=== PATIENT | female | born 1930 | race Two or more races ===

== ENCOUNTER 2018-12-01 13:17 | Inpatient (IN) | payer MEDICAID ==
[~2018-12-01] VITALS: Ht 162.6 cm; Wt 49.2 kg
[2018-12-01 13:20] VITALS: BP 142/70
--- NOTE | 2018-12-01 13:25 | NUR ---
ED Nurse Note: Patient garcia from [facility] c/o right leg DVT. patient presents with swelling ont he right leg as well as an inguinal hernia, patient has no wounds on the backside. patient is alert and oriented x1, patient is not able make sentences however speaks,
[2018-12-01] MEDS ORDERED: MULTIVITAMINS1 EAC2 ORAL (13:31)
[2018-12-01] MEDS ORDERED: megace PO (13:31)
[2018-12-01] MEDS ORDERED: COLACE100 MG ORAL (13:31)
[2018-12-01] MEDS ORDERED: ARICEPT10 MG ORAL (13:31)
[2018-12-01] MEDS ORDERED: ACETAMINOP160 MG/51 ORAL (13:31)
--- NOTE | 2018-12-01 13:45 | NUR ---
ED Nurse Note: speech therapist technician at bedside.
[2018-12-01 14:23] LABS: ANION GAP 11 mmol/L (5-15); BLOOD UREA NITROGEN 17 mg/dL (7-18); CARBON DIOXIDE 25 MMOL/L (21-32); CHLORIDE 105 MMOL/L (98-107); CREATININE 0.7 MG/DL (0.55-1.30); POTASSIUM 3.7 MMOL/L (3.5-5.1); SODIUM 141 MMOL/L (136-145)
[2018-12-01 14:28] LABS: ALANINE AMINOTRANSFERASE 19 U/L (12-78); ALBUMIN 2.9 G/DL (3.4-5.0); ALBUMIN/GLOBULIN RATIO 0.7 (1.0-2.7); ALKALINE PHOSPHATASE 89 U/L (46-116); ASPARTATE AMINO TRANSFERASE 27 U/L (15-37); BILIRUBIN,TOTAL 0.6 MG/DL (0.2-1.0)
[2018-12-01 14:29] LABS: BASOPHILS % (AUTO) 0.4 % (0.0-2.0); EOSINOPHILS % (AUTO) 0.7 % (0.0-3.0); HEMATOCRIT 37.6 % (37.0-47.0); HEMOGLOBIN 12.6 G/DL (12.0-16.0); LYMPHOCYTES % (AUTO) 27.4 % (20.0-45.0); MEAN CORPUSCULAR VOLUME 93 FL (80-99); MONOCYTES % (AUTO) 6.5 % (1.0-10.0); NEUTROPHILS % (AUTO) 65.1 % (45.0-75.0); PLATELET COUNT 157 K/UL (150-450); RED BLOOD COUNT 4.06 M/UL (4.20-5.40); RED CELL DISTRIBUTION WIDTH 12.8 % (11.6-14.8); WHITE BLOOD COUNT 7.7 K/UL (4.8-10.8)
[2018-12-01] MEDS ORDERED: Enoxaparin 60mg Inj SUBQ SCH (14:45)
--- NOTE | 2018-12-01 14:54 | Diagnostic Imaging Report ---
Indication: Right leg pain Technique: Grayscale and duplex images of the right lower extremity veins Comparison: none Findings: Grayscale and duplex images demonstrate hypoechoic thrombus within the mid and upstream femoral femoral vein. Resultant absence of blood flow and absence of compressibility. This extends into the popliteal vein as well. The calf veins are patent as is the downstream femoral vein and common femoral vein. Impression: Positive for right femoral and popliteal deep venous thrombosis Dr. Smith in the emergency room notified at the time of interpretation
[2018-12-01] MEDS ORDERED: LORazepam Inj 2mg/ml 1ml IV ONE (15:15)
[2018-12-01 15:31] VITALS: BP 131/95
--- NOTE | 2018-12-01 15:35 | NUR ---
ED Nurse Note: Cancelled ativan order due to patient not being agitated, Dr. Smith aware
[2018-12-01] MEDS ORDERED: Morphine Sulfate 2mg/ml Inj(IV/IM USE ONLY) IVP PRN (15:45)
[2018-12-01] MEDS ORDERED: Miralax 17gm pkt ORAL PRN (15:45)
[2018-12-01] MEDS ORDERED: Mylanta II UD 30ml ORAL PRN (15:45)
[2018-12-01] MEDS ORDERED: Zolpidem 5mg tab ORAL PRN (15:45)
[2018-12-01] MEDS ORDERED: LORazepam Inj 2mg/ml 1ml IV PRN (15:45)
--- NOTE | 2018-12-01 15:45 | NUR ---
ED Nurse Note: Gave report to FELTON fry
[2018-12-01] MEDS ORDERED: Dextrose 50% 25ml Syringe IV PRN (16:00)
[2018-12-01 16:30] VITALS: BP 121/89
--- NOTE | 2018-12-01 16:30 | NUR ---
NURSE NOTES: PATIENT RECEIVED FROM ER DEPT. VIA ANTHONY. BEDSIDE REPORT RECEIVED FROM MICKI AUTOMOTIVE ASSEMBLER. PATIENT CONFUSED; NON COMBATIVE. SKIN ASSESSED.AND INTACT.RFA HEPLOCK INTACT AND SECURED WITH KERLIX AND TAPE. NOTED RLE DISCOLORED WITH EDEMA PRESENT. UPON SLIGHT TOUCH PATIENT MOANS IN PAIN. BED IN LOW AND LOCKED POSITION. CALL LIGHT WITHIN REACH. WILL REPORT FINDINGS TO PCP.
--- NOTE | 2018-12-01 17:20 | NUR ---
NURSE NOTES: DR MCFARLANE HERE TO SEE PATIENT REPORTED PAIN NOTED TO RLE. XRAY ORDERED. PATIENT TURNED Q2H. TOLERATED WELL. ADDITIONAL ORDERS RECEIVED FROM DR. CHE.
--- NOTE | 2018-12-01 17:52 | Emergency Room Report ---
History of Present Illness General Chief Complaint: Abnormal Labs Source: EMS Present Illness HPI Patient has a history of dementia. Alzheimer's disease. Patient was having worsening right lower chimney pain and swelling. Ultrasound showed possible DVT as an outpatient patient was referred here for further evaluation. On arrival patient denies any chest pain shortness breath the patient is a very poor historian and unable to provide much history. All history was essentially obtained from medical records. Symptoms are noted to be moderate given swelling leg. No other modifying factors. No other associated signs and symptoms. No other complaints were noted. Allergies: Coded Allergies: No Known Allergies (Unverified , 12/01/18) Patient History Past Medical History: dementia, other - Alzheimer's disease Social History Narrative sstays at care home Reviewed Nursing Documentation: PMH: Agreed; PSxH: Agreed Nursing Documentation-PMH Past Medical History: No History, Except For Hx Cardiac Problems: Yes - HLD History Of Psychiatric Problem: Yes - alzheimer's dementia anxiety Review of Systems All Other Systems: limited - Poor mental status Physical Exam Vital Signs Date Time Temp Pulse Resp B/P (MAP) Pulse Ox O2 Delivery O2 Flow Rate FiO2 12/01/18 13:20 98.2 80 19 142/70 96 Room Air Sp02 EP Interpretation: reviewed, normal General Appearance: mild distress, thin, Chronically Ill Head: normocephalic Eyes: bilateral eye normal inspection ENT: normal pharynx, moist mucus membranes Neck: full range of motion, supple Respiratory: chest non-tender, lungs clear Cardiovascular #1: regular rate, rhythm, no edema Gastrointestinal: non tender, soft Genitourinary: no CVA tenderness Musculoskeletal: swelling - Right lower extremity, other - Bilateral lower extremity contractures, tender - right lower extremity Neurologic: alert, responsive Psychiatric: anxious, other - Unable to fuy assess Skin: normal inspection, normal color, no rash Medical Decision Making Diagnostic Impression: Primary Impression: DVT (deep venous thrombosis) Additional Impression: Altered mental status ER Course Patient presents emergency department today complaint right leg pain swelling. Difficult considerations include acute DVT, electrolyte abnormality, edema just name a few.Given the severity of the patient's presentation I felt this is a highly complex patient. This patient required extensive workup. Patient's laboratory workup was not impressive. However ultrasound shows evidence of DVT. Patient was started on Lovenox. Case was discussed detail with Dr. Gabriel Jerry for admission. Labs Test 12/01/18 13:30 White Blood Count 7.7 K/UL (4.8-10.8) Red Blood Count 4.06 M/UL (4.20-5.40) Hemoglobin 12.6 G/DL (12.0-16.0) Hematocrit 37.6 % (37.0-47.0) Mean Corpuscular Volume 93 FL (80-99) Mean Corpuscular Hemoglobin 31.0 PG (27.0-31.0) Mean Corpuscular Hemoglobin Concent 33.5 G/DL (32.0-36.0) Red Cell Distribution Width 12.8 % (11.6-14.8) Platelet Count 157 K/UL (150-450) Mean Platelet Volume 5.6 FL (6.5-10.1) Neutrophils (%) (Auto) 65.1 % (45.0-75.0) Lymphocytes (%) (Auto) 27.4 % (20.0-45.0) Monocytes (%) (Auto) 6.5 % (1.0-10.0) Eosinophils (%) (Auto) 0.7 % (0.0-3.0) Basophils (%) (Auto) 0.4 % (0.0-2.0) Prothrombin Time 10.4 SEC (9.30-11.50) Prothromb Time International Ratio 1.0 (0.9-1.1) Activated Partial Thromboplast Time 26 SEC (23-33) Sodium Level 141 MMOL/L (136-145) Potassium Level 3.7 MMOL/L (3.5-5.1) Chloride Level 105 MMOL/L (98-107) Carbon Dioxide Level 25 MMOL/L (21-32) Anion Gap 11 mmol/L (5-15) Blood Urea Nitrogen 17 mg/dL (7-18) Creatinine 0.7 MG/DL (0.55-1.30) Estimat Glomerular Filtration Rate mL/min (>60) Glucose Level 134 MG/DL (74-106) Calcium Level 9.0 MG/DL (8.5-10.1) Total Bilirubin 0.6 MG/DL (0.2-1.0) Aspartate Amino Transf (AST/SGOT) 27 U/L (15-37) Alanine Aminotransferase (ALT/SGPT) 19 U/L (12-78) Alkaline Phosphatase 89 U/L (46-116) Total Protein 6.9 G/DL (6.4-8.2) Albumin 2.9 G/DL (3.4-5.0) Globulin 4.0 g/dL Albumin/Globulin Ratio 0.7 (1.0-2.7) CT/MRI/US Diagnostic Results CT/MRI/US Diagnostic Results : Imaging Test Ordered: Positive right lower extremity DVT Last Vital Signs Date Time Temp Pulse Resp B/P (MAP) Pulse Ox O2 Delivery O2 Flow Rate FiO2 12/01/18 16:30 99.2 68 18 121/89 (100) 96 12/01/18 15:31 Room Air Status: improved Disposition: ADMITTED INPATIENT Condition: Serious Referrals: Gabriel Jerry DO (PCP) Ti Smith MD Dec 01, 2018 17:52
--- NOTE | 2018-12-01 19:30 | NUR ---
NURSE NOTES: Received report from FELTON Obando. Bed in low position, side rails up x2, locked. Partial bath and linen change done by TOOL SMITH at this time. Call light within reach. Family at bedside. Will continue to monitor.
[2018-12-01 20:00] VITALS: BP 125/81
--- NOTE | 2018-12-01 21:44 | NUR ---
NURSE NOTES: Patient confused. Will follow up on teaching interventions with caregiver/daughter when she returns.
--- NOTE | 2018-12-01 22:45 | History and Physical Report ---
DATE OF ADMISSION: 12/01/2018 TIME SEEN: 5 p.m. CONSULTANTS: 1. Mina Max M.D. 2. Freddy Antunez M.D. 3. Walt Gross M.D. CHIEF COMPLAINT: DVT right leg and leg pain. BRIEF HISTORY: This is an 88-year-old female, from looks like a custodial facility, presents with history of right leg swelling, diagnosed with DVT at the facility, transferred here for further care. This is a possible history of fracture as well. We will obtain history shortly. Currently, calm, confused in bed, not talking much. REVIEW OF SYSTEMS: Not available. PAST MEDICAL HISTORY: Just DVT, looks like dementia. PAST SURGICAL HISTORY: Unknown. ALLERGIES: Denies. SOCIAL HISTORY: Unable to obtain secondary to the patient's condition. PHYSICAL EXAMINATION: GENERAL: Confused in bed, not responding to questions. VITAL SIGNS: Temperature 98 degrees, pulse 65, respirations 19, blood pressure 131/95. CARDIOVASCULAR: No murmur. LUNGS: Distant and clear. ABDOMEN: Bowel sounds positive. Nontender. Nondistended. EXTREMITIES: No cyanosis, clubbing, or edema. NEUROLOGIC: The patient moves all extremities, slightly weak. LABORATORY DATA: Labs at this time show CBC is normal. BMP shows glucose 134, otherwise normal. Albumin 2.9. INR is 1.0, PTT 26. MEDICATIONS: Include Aricept, heparin, Tylenol, morphine, Zofran, zolpidem, lorazepam. ASSESSMENT: 1. DVT on the right leg, possible fracture. 2. Dementia. 3. Hypertension. 4. Malnutrition. PLAN: 1. PT, dietary eval. 2. CBC, BMP in the morning. 3. Resume home medications. 4. Blood pressure control. 5. Dr. Max, Dr. Antunez, Dr. Gross, Dr. Valencia, and Dr. Pelayo to consult. 6. We will continue to follow this patient. Gabriel Jerry D.O. DR: MICHELE JOB#: [id number] CC:
[2018-12-02] VITALS: BP 108/59
[2018-12-02] MEDS ORDERED: Heparin 25,000u/D5W 500ml 500 ML IV SCH ×2 (02:45→10:00)
[2018-12-02 04:00] VITALS: BP 138/68
--- NOTE | 2018-12-02 07:30 | NUR ---
HAND-OFF: Report given to FELTON Oakley. Patient in stable condition.
--- NOTE | 2018-12-02 07:57 | NUR ---
NURSE NOTES: received report from FELTON Bennett. patient in bed. no respiratory distress noted. getting Xray. IV on RFA intact. running heparin drip. bed in the lowest position. alarm on. call light within reach. will continue to monitor.
[2018-12-02 08:00] VITALS: BP 149/66
--- NOTE | 2018-12-02 08:42 | NUR ---
RADIOLOGY DEPT, RIGHT KNEE AND TIBIA/ FIBULA X-RAYS DONE.-P.DYE
[2018-12-02] MEDS: Donepezil 10mg tab ORAL SCH ×3 (09:00→09:44)
[2018-12-02 09:10] LABS: BASOPHILS % (AUTO) 0.6 % (0.0-2.0); EOSINOPHILS % (AUTO) 0.9 % (0.0-3.0); HEMATOCRIT 36.6 % (37.0-47.0); HEMOGLOBIN 12.2 G/DL (12.0-16.0); LYMPHOCYTES % (AUTO) 29.5 % (20.0-45.0); MEAN CORPUSCULAR VOLUME 92 FL (80-99); MONOCYTES % (AUTO) 7.3 % (1.0-10.0); NEUTROPHILS % (AUTO) 61.8 % (45.0-75.0); PLATELET COUNT 162 K/UL (150-450); RED BLOOD COUNT 3.96 M/UL (4.20-5.40); WHITE BLOOD COUNT 8.1 K/UL (4.8-10.8)
[2018-12-02 09:37] LABS: ALANINE AMINOTRANSFERASE 17 U/L (12-78); ALBUMIN 2.8 G/DL (3.4-5.0); ALBUMIN/GLOBULIN RATIO 0.7 (1.0-2.7); ALKALINE PHOSPHATASE 92 U/L (46-116); ANION GAP 9 mmol/L (5-15); ASPARTATE AMINO TRANSFERASE 26 U/L (15-37); BILIRUBIN,TOTAL 0.6 MG/DL (0.2-1.0); BLOOD UREA NITROGEN 14 mg/dL (7-18); CALCIUM 9.1 MG/DL (8.5-10.1); CARBON DIOXIDE 24 MMOL/L (21-32); CHLORIDE 106 MMOL/L (98-107); CHOLESTEROL 152 MG/DL (< 200); CREATININE 0.7 MG/DL (0.55-1.30); HDL CHOLESTEROL 49 MG/DL (40-60); POTASSIUM 3.5 MMOL/L (3.5-5.1); SODIUM 139 MMOL/L (136-145); TRIGLYCERIDES 62 MG/DL (30-150)
[2018-12-02] MEDS ORDERED: Heparin 5000 units/ml inj IV SCH (10:00)
--- NOTE | 2018-12-02 10:00 | NUR ---
NURSE NOTES: Patient PTT result is back new order placed and rate adjusted per protocol. timed PTT placed 6hour dose will continue to monitor. Addendum: 12/02/18 at 1617 by DELANEY URRUTIA RN NURSE NOTES: Patient PTT result is back new order placed by pharmacy and rate adjusted per protocol. timed PTT order placed for 6 hour will continue to monitor.
[2018-12-02 12:00] VITALS: BP 130/80
--- NOTE | 2018-12-02 12:32 | Consultation ---
History of Present Illness General Date patient seen: Dec 02, 2018 Chief Complaint: Abnormal Labs Present Illness HPI 88 year old female with hx of dementia, Alzheimer's disease presented to ER with CC of right lower chimney pain and swelling. Her ultrasound showed possible DVT as an outpatient patient. On arrival to ER patient denied any chest pain shortness breath. he patient is a very poor historian and unable to provide much history. All history was essentially obtained from medical records. She was started on heparin drip and admitted to med/surg. Allergies: Coded Allergies: No Known Allergies (Unverified , 12/01/18) Medication History Scheduled Docusate Sodium* (Colace*), 100 MG ORAL TWICE A DAY, (Reported) Donepezil Hcl* (Aricept*), 10 MG ORAL DAILY, (Reported) Multivitamins* (Multivitamins*), 1 TAB ORAL DAILY, (Reported) [megace], 400 MG PO BID, (Reported) Scheduled PRN Acetaminophen* (Acetaminophen*), 650 MG ORAL Q6H PRN for Mild Pain/Temp > 100.5, (Reported) Patient History Healthcare decision maker N Resuscitation status Full Code Advanced Directive on File Past Medical/Surgical History Past Medical/Surgical History: (1) Alzheimer's dementia Review of Systems Musculoskeletal: Reports: joint pain All Other Systems: negative except mentioned in HPI Physical Exam General Appearance: WD/WN, no apparent distress Lines, tubes and drains: peripheral, central line HEENT: normocephalic, atraumatic Neck: non-tender, normal alignment Respiratory/Chest: chest wall non-tender, lungs clear, normal breath sounds Cardiovascular/Chest: normal rate, no JVD Abdomen: non tender, soft Genitourinary/Rectal: normal genital exam Extremities: non-tender Last 24 Hour Vital Signs Date Time Temp Pulse Resp B/P (MAP) Pulse Ox O2 Delivery O2 Flow Rate FiO2 12/02/18 12:00 98.3 78 18 130/80 (97) 100 12/02/18 09:00 Room Air 12/02/18 08:00 98.1 66 18 149/66 (93) 99 12/02/18 04:00 97.9 72 20 138/68 (91) 96 12/02/18 00:00 98.3 73 18 108/59 (75) 96 12/01/18 20:00 98.5 76 20 125/81 (96) 97 12/01/18 19:00 Room Air 12/01/18 19:00 Room Air 12/01/18 16:30 Room Air 12/01/18 16:30 99.2 68 18 121/89 (100) 96 12/01/18 15:31 98.2 65 19 131/95 96 Room Air 12/01/18 13:20 98.2 85 19 142/70 96 Room Air 12/01/18 13:20 98.2 80 19 142/70 96 Room Air Intake and Output 12/01/18 12/02/18 19:00 07:00 Intake Total 240 ml 18.616 ml Balance 240 ml 18.616 ml Intake Oral 240 ml IV Total 18.616 ml # Voids 1 2 Laboratory Tests Test 12/01/18 13:30 12/02/18 08:57 White Blood Count 7.7 K/UL (4.8-10.8) 8.1 K/UL (4.8-10.8) Red Blood Count 4.06 M/UL (4.20-5.40) L 3.96 M/UL (4.20-5.40) L Hemoglobin 12.6 G/DL (12.0-16.0) 12.2 G/DL (12.0-16.0) Hematocrit 37.6 % (37.0-47.0) 36.6 % (37.0-47.0) L Mean Corpuscular Volume 93 FL (80-99) 92 FL (80-99) Mean Corpuscular Hemoglobin 31.0 PG (27.0-31.0) 30.7 PG (27.0-31.0) Mean Corpuscular Hemoglobin Concent 33.5 G/DL (32.0-36.0) 33.2 G/DL (32.0-36.0) Red Cell Distribution Width 12.8 % (11.6-14.8) 13.0 % (11.6-14.8) Platelet Count 157 K/UL (150-450) 162 K/UL (150-450) Mean Platelet Volume 5.6 FL (6.5-10.1) L 6.2 FL (6.5-10.1) L Neutrophils (%) (Auto) 65.1 % (45.0-75.0) 61.8 % (45.0-75.0) Lymphocytes (%) (Auto) 27.4 % (20.0-45.0) 29.5 % (20.0-45.0) Monocytes (%) (Auto) 6.5 % (1.0-10.0) 7.3 % (1.0-10.0) Eosinophils (%) (Auto) 0.7 % (0.0-3.0) 0.9 % (0.0-3.0) Basophils (%) (Auto) 0.4 % (0.0-2.0) 0.6 % (0.0-2.0) Prothrombin Time 10.4 SEC (9.30-11.50) Prothromb Time International Ratio 1.0 (0.9-1.1) Activated Partial Thromboplast Time 26 SEC (23-33) 64 SEC (23-33) H Sodium Level 141 MMOL/L (136-145) 139 MMOL/L (136-145) Potassium Level 3.7 MMOL/L (3.5-5.1) 3.5 MMOL/L (3.5-5.1) Chloride Level 105 MMOL/L (98-107) 106 MMOL/L (98-107) Carbon Dioxide Level 25 MMOL/L (21-32) 24 MMOL/L (21-32) Anion Gap 11 mmol/L (5-15) 9 mmol/L (5-15) Blood Urea Nitrogen 17 mg/dL (7-18) 14 mg/dL (7-18) Creatinine 0.7 MG/DL (0.55-1.30) 0.7 MG/DL (0.55-1.30) Estimat Glomerular Filtration Rate mL/min (>60) mL/min (>60) Glucose Level 134 MG/DL (74-106) H 120 MG/DL (74-106) H Calcium Level 9.0 MG/DL (8.5-10.1) 9.1 MG/DL (8.5-10.1) Total Bilirubin 0.6 MG/DL (0.2-1.0) 0.6 MG/DL (0.2-1.0) Aspartate Amino Transf (AST/SGOT) 27 U/L (15-37) 26 U/L (15-37) Alanine Aminotransferase (ALT/SGPT) 19 U/L (12-78) 17 U/L (12-78) Alkaline Phosphatase 89 U/L (46-116) 92 U/L (46-116) Total Protein 6.9 G/DL (6.4-8.2) 6.8 G/DL (6.4-8.2) Albumin 2.9 G/DL (3.4-5.0) L 2.8 G/DL (3.4-5.0) L Globulin 4.0 g/dL 4.0 g/dL Albumin/Globulin Ratio 0.7 (1.0-2.7) L 0.7 (1.0-2.7) L Triglycerides Level 62 MG/DL (30-150) Cholesterol Level 152 MG/DL (< 200) LDL Cholesterol 96 mg/dL (<100) HDL Cholesterol 49 MG/DL (40-60) Cholesterol/HDL Ratio 3.1 (3.3-4.4) L Height (Feet): 5 Height (Inches): 4.00 Weight (Pounds): 113 Medications Current Medications Medications (Trade) Dose Ordered Sig/Evita Route PRN Reason Start Time Stop Time Status Last Admin Dose Admin Acetaminophen (Tylenol) 650 mg Q4H PRN ORAL fever (temp>100.5F) 12/01/18 15:45 12/31/18 15:44 Al Hydroxide/Mg Hydroxide (Mylanta II) 30 ml Q6H PRN ORAL dyspepsia 12/01/18 15:45 12/31/18 15:44 Dextrose (Dextrose 50%) 25 ml Q30M PRN IV hypoglycemia 12/01/18 16:00 12/31/18 15:46 Dextrose (Dextrose 50%) 50 ml Q30M PRN IV hypoglycemia 12/01/18 16:00 12/31/18 15:59 Donepezil HCl (Aricept) 10 mg DAILY ORAL 12/02/18 09:00 01/01/19 08:59 Heparin Sodium/ Dextrose 500 ml @ 20.684 mls/ hr ADJUST PER PROTOCOL IV 12/02/18 10:00 01/01/19 02:44 12/02/18 10:29 Lorazepam (Ativan 2mg/ml 1ml) 0.5 mg Q4H PRN IV For Anxiety 12/01/18 15:45 12/08/18 15:44 Morphine Sulfate (Morphine Sulfate) 1 mg Q4H PRN IVP For Pain 12/01/18 15:45 12/08/18 15:44 Ondansetron HCl (Zofran) 4 mg Q6H PRN IVP Nausea & Vomiting 12/01/18 15:45 12/31/18 15:44 Polyethylene Glycol (Miralax) 17 gm HSPRN PRN ORAL Constipation 12/01/18 15:45 12/31/18 15:44 Zolpidem Tartrate (Ambien) 5 mg HSPRN PRN ORAL Insomnia 12/01/18 15:45 12/08/18 15:44 Assessment/Plan Problem List: (1) DVT (deep venous thrombosis) ICD Codes: I82.409 - Acute embolism and thrombosis of unspecified deep veins of unspecified lower extremity SNOMED: 382163722 (2) Alzheimer's dementia ICD Codes: G30.9 - Alzheimer's disease, unspecified; F02.80 - Dementia in other diseases classified elsewhere without behavioral disturbance SNOMED: 17084072 Assessment/Plan IV heparin start coumadin today f/u H/h dc megace, probably the cause of dvt symptomatic treatment Freddy Antunez MD Dec 02, 2018 12:32
--- NOTE | 2018-12-02 13:32 | NUR ---
CASE MANAGEMENT:REVIEW 88 YR OLD FEMALE BIBA FROM [facility] CC: RT LEG SWELLING SI: RT LEG DVT. AMS 98.2 80 19 142/70 96% ON RA INR-1.0 IS: LOVENOX SQ VENOUS DUPLEX : TELEMETRY INTERQUAL
--- NOTE | 2018-12-02 14:38 | General Progress Note ---
Assessment/Plan Problem List: (1) Altered mental status ICD Codes: R41.82 - Altered mental status, unspecified SNOMED: 174139314 (2) Alzheimer's dementia ICD Codes: G30.9 - Alzheimer's disease, unspecified; F02.80 - Dementia in other diseases classified elsewhere without behavioral disturbance SNOMED: 73910450 (3) DVT (deep venous thrombosis) ICD Codes: I82.409 - Acute embolism and thrombosis of unspecified deep veins of unspecified lower extremity SNOMED: 209656497 Status: unchanged Assessment/Plan psyc f/u heme f/u cbc bmp am Subjective Constitutional: Reports: weakness Allergies: Coded Allergies: No Known Allergies (Unverified , 12/01/18) All Systems: reviewed and negative except above Subjective sl confused in bed Objective Last 24 Hour Vital Signs Date Time Temp Pulse Resp B/P (MAP) Pulse Ox O2 Delivery O2 Flow Rate FiO2 12/02/18 12:00 98.3 78 18 130/80 (97) 100 12/02/18 09:00 Room Air 12/02/18 08:00 98.1 66 18 149/66 (93) 99 12/02/18 04:00 97.9 72 20 138/68 (91) 96 12/02/18 00:00 98.3 73 18 108/59 (75) 96 12/01/18 20:00 98.5 76 20 125/81 (96) 97 12/01/18 19:00 Room Air 12/01/18 19:00 Room Air 12/01/18 16:30 Room Air 12/01/18 16:30 99.2 68 18 121/89 (100) 96 12/01/18 15:31 98.2 65 19 131/95 96 Room Air Intake and Output 12/01/18 12/02/18 18:59 06:59 Intake Total 240 ml 18.616 ml Balance 240 ml 18.616 ml Intake Oral 240 ml IV Total 18.616 ml # Voids 1 2 Laboratory Tests 12/02/18 08:57: White Blood Count 8.1, Red Blood Count 3.96L, Hemoglobin 12.2, Hematocrit 36.6L , Mean Corpuscular Volume 92, Mean Corpuscular Hemoglobin 30.7, Mean Corpuscular Hemoglobin Concent 33.2, Red Cell Distribution Width 13.0, Platelet Count 162, Mean Platelet Volume 6.2L, Neutrophils (%) (Auto) 61.8, Lymphocytes ( %) (Auto) 29.5, Monocytes (%) (Auto) 7.3, Eosinophils (%) (Auto) 0.9, Basophils (%) (Auto) 0.6, Activated Partial Thromboplast Time 64H, Sodium Level 139, Potassium Level 3.5, Chloride Level 106, Carbon Dioxide Level 24, Anion Gap 9, Blood Urea Nitrogen 14, Creatinine 0.7, Estimat Glomerular Filtration Rate , Glucose Level 120H, Calcium Level 9.1, Total Bilirubin 0.6, Aspartate Amino Transf (AST/SGOT) 26, Alanine Aminotransferase (ALT/SGPT) 17, Alkaline Phosphatase 92, Total Protein 6.8, Albumin 2.8L, Globulin 4.0, Albumin/Globulin Ratio 0.7L, Triglycerides Level 62, Cholesterol Level 152, LDL Cholesterol 96, HDL Cholesterol 49, Cholesterol/HDL Ratio 3.1L Height (Feet): 5 Height (Inches): 4.00 Weight (Pounds): 113 General Appearance: lethargic, confused EENT: normal ENT inspection Neck: normal alignment Cardiovascular: normal peripheral pulses, normal rate, regular rhythm Respiratory/Chest: chest wall non-tender, lungs clear, normal breath sounds Abdomen: normal bowel sounds, non tender, soft Extremities: normal inspection Edema: no edema noted Arm (L), no edema noted Arm (R), no edema noted Leg (L), no edema noted Leg (R), no edema noted Pedal (L), no edema noted Pedal (R), no edema noted Generalized Neurologic: motor weakness Skin: normal pigmentation, warm/dry Gabriel Jerry DO Dec 02, 2018 14:38
[2018-12-02 16:00] VITALS: BP 132/78
--- NOTE | 2018-12-02 16:12 | NUR ---
NURSE NOTES: New PTT high critical lab result reported >150 by lab CN informed pharmacy heparin drip held per pharmacy protocol for one hour starting 1550. MD notified, electrician constructor supervisor aware will continue to monitor.
[2018-12-02] MEDS: Heparin 25,000u/D5W 500ml 500 ML IV SCH (17:00)
--- NOTE | 2018-12-02 17:07 | Consultation ---
History of Present Illness General Date patient seen: Dec 02, 2018 Time patient seen: 17:02 Chief Complaint: Abnormal Labs Present Illness HPI Patient bibas from [facility] c/o right leg DVT. patient presents with swelling on the right leg as well as an inguinal hernia, Patient is alert and oriented x1 and does not contribute to history. Allergies: Coded Allergies: No Known Allergies (Unverified , 12/01/18) Medication History Scheduled Docusate Sodium* (Colace*), 100 MG ORAL TWICE A DAY, (Reported) Donepezil Hcl* (Aricept*), 10 MG ORAL DAILY, (Reported) Multivitamins* (Multivitamins*), 1 TAB ORAL DAILY, (Reported) [megace], 400 MG PO BID, (Reported) Scheduled PRN Acetaminophen* (Acetaminophen*), 650 MG ORAL Q6H PRN for Mild Pain/Temp > 100.5, (Reported) Patient History Healthcare decision maker N Resuscitation status Full Code Advanced Directive on File Review of Systems Constitutional: Reports: no symptoms Eye: Reports: no symptoms ENT: Reports: no symptoms Respiratory: Reports: no symptoms Cardiovascular: Reports: no symptoms Gastrointestinal: Reports: no symptoms Genitourinary: Reports: no symptoms Musculoskeletal: Reports: no symptoms Skin: Reports: no symptoms Psychiatric: Reports: no symptoms Neurological: Reports: no symptoms Endocrine: Reports: no symptoms Hematologic/Lymphatic: Reports: no symptoms Physical Exam General Appearance: no apparent distress, lethargic, confused Lines, tubes and drains: peripheral HEENT: normocephalic, atraumatic, anicteric, mucous membranes moist, PERRL Neck: non-tender, normal alignment, supple Respiratory/Chest: chest wall non-tender, lungs clear, normal breath sounds, no respiratory distress Cardiovascular/Chest: normal peripheral pulses, normal rate, regular rhythm Abdomen: normal bowel sounds, non tender, soft, no organomegaly, no mass Extremities: normal range of motion, calf tenderness, slow capillary refill, trace edema Skin Exam: normal pigmentation, cyanotic, no diaphoresis 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, no motor/sensory deficits Last 24 Hour Vital Signs Date Time Temp Pulse Resp B/P (MAP) Pulse Ox O2 Delivery O2 Flow Rate FiO2 12/02/18 16:00 98.5 75 18 132/78 (96) 100 12/02/18 12:00 98.3 78 18 130/80 (97) 100 12/02/18 09:00 Room Air 12/02/18 08:00 98.1 66 18 149/66 (93) 99 12/02/18 04:00 97.9 72 20 138/68 (91) 96 12/02/18 00:00 98.3 73 18 108/59 (75) 96 12/01/18 20:00 98.5 76 20 125/81 (96) 97 12/01/18 19:00 Room Air 12/01/18 19:00 Room Air Intake and Output 12/01/18 12/02/18 18:59 06:59 Intake Total 240 ml 18.616 ml Balance 240 ml 18.616 ml Intake Oral 240 ml IV Total 18.616 ml # Voids 1 2 Laboratory Tests Test 12/02/18 08:57 12/02/18 15:00 White Blood Count 8.1 K/UL (4.8-10.8) Red Blood Count 3.96 M/UL (4.20-5.40) L Hemoglobin 12.2 G/DL (12.0-16.0) Hematocrit 36.6 % (37.0-47.0) L Mean Corpuscular Volume 92 FL (80-99) Mean Corpuscular Hemoglobin 30.7 PG (27.0-31.0) Mean Corpuscular Hemoglobin Concent 33.2 G/DL (32.0-36.0) Red Cell Distribution Width 13.0 % (11.6-14.8) Platelet Count 162 K/UL (150-450) Mean Platelet Volume 6.2 FL (6.5-10.1) L Neutrophils (%) (Auto) 61.8 % (45.0-75.0) Lymphocytes (%) (Auto) 29.5 % (20.0-45.0) Monocytes (%) (Auto) 7.3 % (1.0-10.0) Eosinophils (%) (Auto) 0.9 % (0.0-3.0) Basophils (%) (Auto) 0.6 % (0.0-2.0) Activated Partial Thromboplast Time 64 SEC (23-33) H > 150 SEC (23-33) *H Sodium Level 139 MMOL/L (136-145) Potassium Level 3.5 MMOL/L (3.5-5.1) Chloride Level 106 MMOL/L (98-107) Carbon Dioxide Level 24 MMOL/L (21-32) Anion Gap 9 mmol/L (5-15) Blood Urea Nitrogen 14 mg/dL (7-18) Creatinine 0.7 MG/DL (0.55-1.30) Estimat Glomerular Filtration Rate mL/min (>60) Glucose Level 120 MG/DL (74-106) H Calcium Level 9.1 MG/DL (8.5-10.1) Total Bilirubin 0.6 MG/DL (0.2-1.0) Aspartate Amino Transf (AST/SGOT) 26 U/L (15-37) Alanine Aminotransferase (ALT/SGPT) 17 U/L (12-78) Alkaline Phosphatase 92 U/L (46-116) Total Protein 6.8 G/DL (6.4-8.2) Albumin 2.8 G/DL (3.4-5.0) L Globulin 4.0 g/dL Albumin/Globulin Ratio 0.7 (1.0-2.7) L Triglycerides Level 62 MG/DL (30-150) Cholesterol Level 152 MG/DL (< 200) LDL Cholesterol 96 mg/dL (<100) HDL Cholesterol 49 MG/DL (40-60) Cholesterol/HDL Ratio 3.1 (3.3-4.4) L Height (Feet): 5 Height (Inches): 4.00 Weight (Pounds): 113 Medications Current Medications Medications (Trade) Dose Ordered Sig/Evita Route PRN Reason Start Time Stop Time Status Last Admin Dose Admin Acetaminophen (Tylenol) 650 mg Q4H PRN ORAL fever (temp>100.5F) 12/01/18 15:45 12/31/18 15:44 Al Hydroxide/Mg Hydroxide (Mylanta II) 30 ml Q6H PRN ORAL dyspepsia 12/01/18 15:45 12/31/18 15:44 Dextrose (Dextrose 50%) 25 ml Q30M PRN IV hypoglycemia 12/01/18 16:00 12/31/18 15:46 Dextrose (Dextrose 50%) 50 ml Q30M PRN IV hypoglycemia 12/01/18 16:00 12/31/18 15:59 Donepezil HCl (Aricept) 10 mg DAILY ORAL 12/02/18 09:00 01/01/19 08:59 Heparin Sodium/ Dextrose 500 ml @ 16.547 mls/ hr ADJUST PER PROTOCOL IV 12/02/18 17:00 01/01/19 16:59 12/02/18 17:00 Lorazepam (Ativan 2mg/ml 1ml) 0.5 mg Q4H PRN IV For Anxiety 12/01/18 15:45 12/08/18 15:44 Morphine Sulfate (Morphine Sulfate) 1 mg Q4H PRN IVP For Pain 12/01/18 15:45 12/08/18 15:44 Ondansetron HCl (Zofran) 4 mg Q6H PRN IVP Nausea & Vomiting 12/01/18 15:45 12/31/18 15:44 Polyethylene Glycol (Miralax) 17 gm HSPRN PRN ORAL Constipation 12/01/18 15:45 12/31/18 15:44 Zolpidem Tartrate (Ambien) 5 mg HSPRN PRN ORAL Insomnia 12/01/18 15:45 12/08/18 15:44 Assessment/Plan Status: stable Assessment/Plan Assessment 1. DVT on the right leg, possible fracture. 2. Dementia. 3. Hypertension. 4. Malnutrition. Plan Heparin/Coumadin No evidence of PE or RV collapse, she is HDS Appetite stimulation, physical therapy, nutrition consult Samir Fox MD Dec 02, 2018 17:07
--- NOTE | 2018-12-02 18:17 | Consultation ---
History of Present Illness General Chief Complaint: Abnormal Labs Present Illness Allergies: Coded Allergies: No Known Allergies (Unverified , 12/01/18) Medication History Scheduled Docusate Sodium* (Colace*), 100 MG ORAL TWICE A DAY, (Reported) Donepezil Hcl* (Aricept*), 10 MG ORAL DAILY, (Reported) Multivitamins* (Multivitamins*), 1 TAB ORAL DAILY, (Reported) [megace], 400 MG PO BID, (Reported) Scheduled PRN Acetaminophen* (Acetaminophen*), 650 MG ORAL Q6H PRN for Mild Pain/Temp > 100.5, (Reported) Patient History Healthcare decision maker N Resuscitation status Full Code Advanced Directive on File Physical Exam Last 24 Hour Vital Signs Date Time Temp Pulse Resp B/P (MAP) Pulse Ox O2 Delivery O2 Flow Rate FiO2 12/02/18 16:00 98.5 75 18 132/78 (96) 100 12/02/18 12:00 98.3 78 18 130/80 (97) 100 12/02/18 09:00 Room Air 12/02/18 08:00 98.1 66 18 149/66 (93) 99 12/02/18 04:00 97.9 72 20 138/68 (91) 96 12/02/18 00:00 98.3 73 18 108/59 (75) 96 12/01/18 20:00 98.5 76 20 125/81 (96) 97 12/01/18 19:00 Room Air 12/01/18 19:00 Room Air Intake and Output 12/01/18 12/02/18 18:59 06:59 Intake Total 240 ml 18.616 ml Balance 240 ml 18.616 ml Intake Oral 240 ml IV Total 18.616 ml # Voids 1 2 Laboratory Tests Test 12/02/18 08:57 12/02/18 15:00 White Blood Count 8.1 K/UL (4.8-10.8) Red Blood Count 3.96 M/UL (4.20-5.40) L Hemoglobin 12.2 G/DL (12.0-16.0) Hematocrit 36.6 % (37.0-47.0) L Mean Corpuscular Volume 92 FL (80-99) Mean Corpuscular Hemoglobin 30.7 PG (27.0-31.0) Mean Corpuscular Hemoglobin Concent 33.2 G/DL (32.0-36.0) Red Cell Distribution Width 13.0 % (11.6-14.8) Platelet Count 162 K/UL (150-450) Mean Platelet Volume 6.2 FL (6.5-10.1) L Neutrophils (%) (Auto) 61.8 % (45.0-75.0) Lymphocytes (%) (Auto) 29.5 % (20.0-45.0) Monocytes (%) (Auto) 7.3 % (1.0-10.0) Eosinophils (%) (Auto) 0.9 % (0.0-3.0) Basophils (%) (Auto) 0.6 % (0.0-2.0) Activated Partial Thromboplast Time 64 SEC (23-33) H > 150 SEC (23-33) *H Sodium Level 139 MMOL/L (136-145) Potassium Level 3.5 MMOL/L (3.5-5.1) Chloride Level 106 MMOL/L (98-107) Carbon Dioxide Level 24 MMOL/L (21-32) Anion Gap 9 mmol/L (5-15) Blood Urea Nitrogen 14 mg/dL (7-18) Creatinine 0.7 MG/DL (0.55-1.30) Estimat Glomerular Filtration Rate mL/min (>60) Glucose Level 120 MG/DL (74-106) H Calcium Level 9.1 MG/DL (8.5-10.1) Total Bilirubin 0.6 MG/DL (0.2-1.0) Aspartate Amino Transf (AST/SGOT) 26 U/L (15-37) Alanine Aminotransferase (ALT/SGPT) 17 U/L (12-78) Alkaline Phosphatase 92 U/L (46-116) Total Protein 6.8 G/DL (6.4-8.2) Albumin 2.8 G/DL (3.4-5.0) L Globulin 4.0 g/dL Albumin/Globulin Ratio 0.7 (1.0-2.7) L Triglycerides Level 62 MG/DL (30-150) Cholesterol Level 152 MG/DL (< 200) LDL Cholesterol 96 mg/dL (<100) HDL Cholesterol 49 MG/DL (40-60) Cholesterol/HDL Ratio 3.1 (3.3-4.4) L Height (Feet): 5 Height (Inches): 4.00 Weight (Pounds): 113 Medications Current Medications Medications (Trade) Dose Ordered Sig/Evita Route PRN Reason Start Time Stop Time Status Last Admin Dose Admin Acetaminophen (Tylenol) 650 mg Q4H PRN ORAL fever (temp>100.5F) 12/01/18 15:45 12/31/18 15:44 Al Hydroxide/Mg Hydroxide (Mylanta II) 30 ml Q6H PRN ORAL dyspepsia 12/01/18 15:45 12/31/18 15:44 Dextrose (Dextrose 50%) 25 ml Q30M PRN IV hypoglycemia 12/01/18 16:00 12/31/18 15:46 Dextrose (Dextrose 50%) 50 ml Q30M PRN IV hypoglycemia 12/01/18 16:00 12/31/18 15:59 Donepezil HCl (Aricept) 10 mg DAILY ORAL 12/02/18 09:00 01/01/19 08:59 Heparin Sodium/ Dextrose 500 ml @ 16.547 mls/ hr ADJUST PER PROTOCOL IV 12/02/18 17:00 01/01/19 16:59 12/02/18 17:00 Lorazepam (Ativan 2mg/ml 1ml) 0.5 mg Q4H PRN IV For Anxiety 12/01/18 15:45 12/08/18 15:44 Morphine Sulfate (Morphine Sulfate) 1 mg Q4H PRN IVP For Pain 12/01/18 15:45 12/08/18 15:44 Ondansetron HCl (Zofran) 4 mg Q6H PRN IVP Nausea & Vomiting 12/01/18 15:45 12/31/18 15:44 Polyethylene Glycol (Miralax) 17 gm HSPRN PRN ORAL Constipation 12/01/18 15:45 12/31/18 15:44 Zolpidem Tartrate (Ambien) 5 mg HSPRN PRN ORAL Insomnia 12/01/18 15:45 12/08/18 15:44 Assessment/Plan Assessment/Plan Hematology Consultatuon Date patient seen: Dec 02, 2018 Chief Complaint: Abnormal Labs RFC: Dvt of lower ext REQ MD: Rosalino Hunter Present Illness HPI 88 year old female with hx of dementia, Alzheimer's disease presented to ER with CC of right lower chimney pain and swelling. Her ultrasound showed possible DVT as an outpatient patient. On arrival to ER patient denied any chest pain shortness breath. he patient is a very poor historian and unable to provide much history. All history was essentially obtained from medical records. She was started on heparin drip and admitted to med/surg. Allergies: Coded Allergies: No Known Allergies (Unverified , 12/01/18) Medication History Scheduled Docusate Sodium* (Colace*), 100 MG ORAL TWICE A DAY, (Reported) Donepezil Hcl* (Aricept*), 10 MG ORAL DAILY, (Reported) Multivitamins* (Multivitamins*), 1 TAB ORAL DAILY, (Reported) [megace], 400 MG PO BID, (Reported) Scheduled PRN Acetaminophen* (Acetaminophen*), 650 MG ORAL Q6H PRN for Mild Pain/Temp > 100.5, (Reported) Patient History Healthcare decision maker N Resuscitation status Full Code Advanced Directive on File Past Medical/Surgical History Past Medical/Surgical History: (1) Alzheimer's dementia ROS Musculoskeletal: Reports: joint pain All Other Systems: negative except mentioned in HPI Physical Exam General Appearance: WD/WN, no apparent distress Lines, tubes and drains: peripheral, central line HEENT: normocephalic, atraumatic Neck: non-tender, normal alignment Respiratory/Chest: chest wall non-tender, lungs clear, normal breath sounds Cardiovascular/Chest: normal rate, no JVD Abdomen: non tender, soft Genitourinary/Rectal: normal genital exam Extremities: non-tender Last 24 Hour Vital Signs Date Time Temp Pulse Resp B/P (MAP) Pulse Ox O2 Delivery O2 Flow Rate FiO2 12/02/18 12:00 98.3 78 18 130/80 (97) 100 12/02/18 09:00 Room Air 12/02/18 08:00 98.1 66 18 149/66 (93) 99 12/02/18 04:00 97.9 72 20 138/68 (91) 96 12/02/18 00:00 98.3 73 18 108/59 (75) 96 12/01/18 20:00 98.5 76 20 125/81 (96) 97 12/01/18 19:00 Room Air 12/01/18 19:00 Room Air 12/01/18 16:30 Room Air 12/01/18 16:30 99.2 68 18 121/89 (100) 96 12/01/18 15:31 98.2 65 19 131/95 96 Room Air 12/01/18 13:20 98.2 85 19 142/70 96 Room Air 12/01/18 13:20 98.2 80 19 142/70 96 Room Air Intake and Output 12/01/18 12/02/18 19:00 07:00 Intake Total 240 ml 18.616 ml Balance 240 ml 18.616 ml Intake Oral 240 ml IV Total 18.616 ml # Voids 1 2 Laboratory Tests Test 12/01/18 13:30 12/02/18 08:57 White Blood Count 7.7 K/UL (4.8-10.8) 8.1 K/UL (4.8-10.8) Red Blood Count 4.06 M/UL (4.20-5.40) L 3.96 M/UL (4.20-5.40) L Hemoglobin 12.6 G/DL (12.0-16.0) 12.2 G/DL (12.0-16.0) Hematocrit 37.6 % (37.0-47.0) 36.6 % (37.0-47.0) L Mean Corpuscular Volume 93 FL (80-99) 92 FL (80-99) Mean Corpuscular Hemoglobin 31.0 PG (27.0-31.0) 30.7 PG (27.0-31.0) Mean Corpuscular Hemoglobin Concent 33.5 G/DL (32.0-36.0) 33.2 G/DL (32.0-36.0) Red Cell Distribution Width 12.8 % (11.6-14.8) 13.0 % (11.6-14.8) Platelet Count 157 K/UL (150-450) 162 K/UL (150-450) Mean Platelet Volume 5.6 FL (6.5-10.1) L 6.2 FL (6.5-10.1) L Neutrophils (%) (Auto) 65.1 % (45.0-75.0) 61.8 % (45.0-75.0) Lymphocytes (%) (Auto) 27.4 % (20.0-45.0) 29.5 % (20.0-45.0) Monocytes (%) (Auto) 6.5 % (1.0-10.0) 7.3 % (1.0-10.0) Eosinophils (%) (Auto) 0.7 % (0.0-3.0) 0.9 % (0.0-3.0) Basophils (%) (Auto) 0.4 % (0.0-2.0) 0.6 % (0.0-2.0) Prothrombin Time 10.4 SEC (9.30-11.50) Prothromb Time International Ratio 1.0 (0.9-1.1) Activated Partial Thromboplast Time 26 SEC (23-33) 64 SEC (23-33) H Sodium Level 141 MMOL/L (136-145) 139 MMOL/L (136-145) Potassium Level 3.7 MMOL/L (3.5-5.1) 3.5 MMOL/L (3.5-5.1) Chloride Level 105 MMOL/L (98-107) 106 MMOL/L (98-107) Carbon Dioxide Level 25 MMOL/L (21-32) 24 MMOL/L (21-32) Anion Gap 11 mmol/L (5-15) 9 mmol/L (5-15) Blood Urea Nitrogen 17 mg/dL (7-18) 14 mg/dL (7-18) Creatinine 0.7 MG/DL (0.55-1.30) 0.7 MG/DL (0.55-1.30) Estimat Glomerular Filtration Rate mL/min (>60) mL/min (>60) Glucose Level 134 MG/DL (74-106) H 120 MG/DL (74-106) H Calcium Level 9.0 MG/DL (8.5-10.1) 9.1 MG/DL (8.5-10.1) Total Bilirubin 0.6 MG/DL (0.2-1.0) 0.6 MG/DL (0.2-1.0) Aspartate Amino Transf (AST/SGOT) 27 U/L (15-37) 26 U/L (15-37) Alanine Aminotransferase (ALT/SGPT) 19 U/L (12-78) 17 U/L (12-78) Alkaline Phosphatase 89 U/L (46-116) 92 U/L (46-116) Total Protein 6.9 G/DL (6.4-8.2) 6.8 G/DL (6.4-8.2) Albumin 2.9 G/DL (3.4-5.0) L 2.8 G/DL (3.4-5.0) L Globulin 4.0 g/dL 4.0 g/dL Albumin/Globulin Ratio 0.7 (1.0-2.7) L 0.7 (1.0-2.7) L Triglycerides Level 62 MG/DL (30-150) Cholesterol Level 152 MG/DL (< 200) LDL Cholesterol 96 mg/dL (<100) HDL Cholesterol 49 MG/DL (40-60) Cholesterol/HDL Ratio 3.1 (3.3-4.4) L Height (Feet): 5 Height (Inches): 4.00 Weight (Pounds): 113 Medications Current Medications Medications (Trade) Dose Ordered Sig/Evita Route PRN Reason Start Time Stop Time Status Last Admin Dose Admin Acetaminophen (Tylenol) 650 mg Q4H PRN ORAL fever (temp>100.5F) 12/01/18 15:45 12/31/18 15:44 Al Hydroxide/Mg Hydroxide (Mylanta II) 30 ml Q6H PRN ORAL dyspepsia 12/01/18 15:45 12/31/18 15:44 Dextrose (Dextrose 50%) 25 ml Q30M PRN IV hypoglycemia 12/01/18 16:00 12/31/18 15:46 Dextrose (Dextrose 50%) 50 ml Q30M PRN IV hypoglycemia 12/01/18 16:00 12/31/18 15:59 Donepezil HCl (Aricept) 10 mg DAILY ORAL 12/02/18 09:00 01/01/19 08:59 Heparin Sodium/ Dextrose 500 ml @ 20.684 mls/ hr ADJUST PER PROTOCOL IV 12/02/18 10:00 01/01/19 02:44 12/02/18 10:29 Lorazepam (Ativan 2mg/ml 1ml) 0.5 mg Q4H PRN IV For Anxiety 12/01/18 15:45 12/08/18 15:44 Morphine Sulfate (Morphine Sulfate) 1 mg Q4H PRN IVP For Pain 12/01/18 15:45 12/08/18 15:44 Ondansetron HCl (Zofran) 4 mg Q6H PRN IVP Nausea & Vomiting 12/01/18 15:45 12/31/18 15:44 Polyethylene Glycol (Miralax) 17 gm HSPRN PRN ORAL Constipation 12/01/18 15:45 12/31/18 15:44 Zolpidem Tartrate (Ambien) 5 mg HSPRN PRN ORAL Insomnia 12/01/18 15:45 12/08/18 15:44 Assessment and Recs Problem List: # DVT (deep venous thrombosis) of the lower vein popliteal and femoral likely due to megace --> have started on heparin gtt --> monitor for sob or development of pe --> okay to trasnsition to coumadin inr goal 203 # Coagulopathy is due to coumadin use --> have started on coumadin inr goal 2-3 --> dose adjustment is per pharmacy # Alzheimer's dementia --> donepezil and neuro f/u The timing of this note does not necessarily reflect the time of the patient was seen. Greatly appreciate consultation! Romain Max MD Dec 02, 2018 18:17
--- NOTE | 2018-12-02 19:21 | NUR ---
HAND-OFF: Report given to Donald Cole RN.
--- NOTE | 2018-12-02 19:50 | NUR ---
NURSE NOTES: Patient in bed awake. On Heparin Drip able to tolerate well. VSS. No SOB noted. Repositioned for comfort. Bed is locked and in low position. Call light within reach. Needs attended. In stable condition.
[2018-12-02 20:00] VITALS: BP 120/84
[2018-12-03] VITALS: BP 123/78
[2018-12-03 04:00] VITALS: BP 118/80
[2018-12-03 04:16] LABS: BASOPHILS % (AUTO) 0.6 % (0.0-2.0); EOSINOPHILS % (AUTO) 1.2 % (0.0-3.0); HEMATOCRIT 34.2 % (37.0-47.0); HEMOGLOBIN 11.6 G/DL (12.0-16.0); LYMPHOCYTES % (AUTO) 27.4 % (20.0-45.0); MEAN CORPUSCULAR VOLUME 92 FL (80-99); NEUTROPHILS % (AUTO) 61.8 % (45.0-75.0); PLATELET COUNT 167 K/UL (150-450); RED BLOOD COUNT 3.73 M/UL (4.20-5.40); RED CELL DISTRIBUTION WIDTH 13.1 % (11.6-14.8); WHITE BLOOD COUNT 7.6 K/UL (4.8-10.8)
[2018-12-03 04:27] LABS: ANION GAP 8 mmol/L (5-15); BLOOD UREA NITROGEN 17 mg/dL (7-18); CALCIUM 9.1 MG/DL (8.5-10.1); CARBON DIOXIDE 25 MMOL/L (21-32); CHLORIDE 107 MMOL/L (98-107); CREATININE 0.8 MG/DL (0.55-1.30); POTASSIUM 3.7 MMOL/L (3.5-5.1); SODIUM 140 MMOL/L (136-145)
--- NOTE | 2018-12-03 04:54 | NUR ---
NURSE NOTES: Patients PTT came back. Heparin drip no change. Scheduled timed PTT for 12/04.
[2018-12-03] MEDS: Heparin 25,000u/D5W 500ml 500 ML IV SCH (05:13)
--- NOTE | 2018-12-03 07:32 | NUR ---
NURSE NOTES: WALKING ROUNDS DONE WITH OUTGOING RN. PATIENT IN BED ASLEEP. ASSESSED RLE. IV INTACT. HEPARIN GTT AT CURRENT RATE.SR UP X2. BED IN LOW AND LOCKED POSITION. CALL LIGHT WITHIN REACH.
[2018-12-03 08:00] VITALS: BP 91/78
--- NOTE | 2018-12-03 08:15 | NUR ---
NURSE NOTES: PLACED RLE IMMOBILIZER PER MD ORDER. TOLERATED FAIR. ELEVATED WITH PILLOW FOR SUPPORT.
--- NOTE | 2018-12-03 09:32 | Diagnostic Imaging Report ---
Indication: Right lower leg pain Technique: 2 views of the right tibia and fibula Comparison: Findings: There is a spiral nondisplaced fracture of the mid to distal tibial shaft. There is a spiral nondisplaced fracture of the distal fibular shaft. Bones are osteoporotic. The arteries are calcified. There are degenerative changes of the knee joint. Impression: Positive for nondisplaced tibial and fibular fractures, as described Findings phoned to Dr. Gross at the time of interpretation
--- NOTE | 2018-12-03 09:32 | Diagnostic Imaging Report ---
Indication: Right knee pain Technique: 2 views of the knee Comparison: None Findings: Exam is limited due to the availability of only 2 views, limited patient cooperation. The bones are osteoporotic. There there is degenerative narrowing of the patellofemoral joint compartment and to a lesser extent the medial and lateral joint compartment. There is extensive degenerative proliferative change noted. No definite acute fractures. No dislocations. There are extensive vascular calcifications Impression: Degenerative changes, as described No definite acute bony trauma
--- NOTE | 2018-12-03 09:33 | Diagnostic Imaging Report ---
Indication: Cough Technique: One view of the chest Comparison: none Findings: Left hemidiaphragm is elevated. The heart size is upper limits normal. The aorta is evaluated tortuous and calcified. There are degenerative changes of both shoulders Impression: No acute process
[2018-12-03 12:00] VITALS: BP 120/98
--- NOTE | 2018-12-03 12:06 | Pulmonology Progress Note ---
Assessment/Plan Problems: (1) DVT (deep venous thrombosis) (2) Alzheimer's dementia Assessment/Plan IV heparin start coumadin by pharmacy f/u H/h dc megace, probably the cause of dvt symptomatic treatment Subjective ROS Limited/Unobtainable: No Constitutional: Reports: no symptoms HEENT: Repors: no symptoms Allergies: Coded Allergies: No Known Allergies (Unverified , 12/01/18) Objective Last 24 Hour Vital Signs Date Time Temp Pulse Resp B/P (MAP) Pulse Ox O2 Delivery O2 Flow Rate FiO2 12/03/18 09:00 Room Air 12/03/18 08:00 98.1 72 17 91/78 (82) 98 12/03/18 04:00 98.2 90 18 118/80 (93) 97 12/03/18 00:00 98.4 81 18 123/78 (93) 96 12/02/18 21:00 Room Air 12/02/18 20:00 98.2 86 19 120/84 (96) 97 12/02/18 16:00 98.5 75 18 132/78 (96) 100 Intake and Output 12/02/18 12/03/18 19:00 07:00 Intake Total 1082.736 ml 240 ml Balance 1082.736 ml 240 ml Intake Oral 1000 ml 240 ml IV Total 82.736 ml # Voids 4 2 # Bowel Movements 1 1 General Appearance: WD/WN HEENT: normocephalic, atraumatic Respiratory/Chest: chest wall non-tender, lungs clear Breasts: no masses Cardiovascular: normal peripheral pulses Abdomen: normal bowel sounds, soft, non tender Extremities: no cyanosis, no clubbing Microbiology Date/Time Source Procedure Growth Status 12/01/18 16:00 Nasal Nares MRSA Culture - Final Complete 12/01/18 16:00 Rectum VRE Culture - Final NO VANCOMYCIN RESISTANT ENTEROCOCCUS ... Complete 12/01/18 16:00 Rectum - Final NO CARBAPENEM-RESISTANT ENTEROBACTERI... Complete Laboratory Tests 12/02/18 15:00: Activated Partial Thromboplast Time > 150*H 12/02/18 23:20: Activated Partial Thromboplast Time 81H 12/03/18 04:10: Activated Partial Thromboplast Time 95H, White Blood Count 7.6, Red Blood Count 3.73L, Hemoglobin 11.6L, Hematocrit 34.2L, Mean Corpuscular Volume 92, Mean Corpuscular Hemoglobin 31.0, Mean Corpuscular Hemoglobin Concent 33.8, Red Cell Distribution Width 13.1, Platelet Count 167, Mean Platelet Volume 5.5L, Neutrophils (%) (Auto) 61.8, Lymphocytes (%) (Auto) 27.4, Monocytes (%) (Auto) 9.0, Eosinophils (%) (Auto) 1.2, Basophils (%) (Auto) 0.6, Sodium Level 140, Potassium Level 3.7, Chloride Level 107, Carbon Dioxide Level 25, Anion Gap 8, Blood Urea Nitrogen 17, Creatinine 0.8, Estimat Glomerular Filtration Rate , Glucose Level 97, Calcium Level 9.1 Current Medications Medications (Trade) Dose Ordered Sig/Evita Route PRN Reason Start Time Stop Time Status Last Admin Dose Admin Acetaminophen (Tylenol) 650 mg Q4H PRN ORAL fever (temp>100.5F) 12/01/18 15:45 12/31/18 15:44 Al Hydroxide/Mg Hydroxide (Mylanta II) 30 ml Q6H PRN ORAL dyspepsia 12/01/18 15:45 12/31/18 15:44 Dextrose (Dextrose 50%) 25 ml Q30M PRN IV hypoglycemia 12/01/18 16:00 12/31/18 15:46 Dextrose (Dextrose 50%) 50 ml Q30M PRN IV hypoglycemia 12/01/18 16:00 12/31/18 15:59 Donepezil HCl (Aricept) 10 mg DAILY ORAL 12/02/18 09:00 01/01/19 08:59 Heparin Sodium/ Dextrose 500 ml @ 16.547 mls/ hr ADJUST PER PROTOCOL IV 12/02/18 17:00 01/01/19 16:59 12/03/18 05:13 Lorazepam (Ativan 2mg/ml 1ml) 0.5 mg Q4H PRN IV For Anxiety 12/01/18 15:45 12/08/18 15:44 Morphine Sulfate (Morphine Sulfate) 1 mg Q4H PRN IVP For Pain 12/01/18 15:45 12/08/18 15:44 Ondansetron HCl (Zofran) 4 mg Q6H PRN IVP Nausea & Vomiting 12/01/18 15:45 12/31/18 15:44 Polyethylene Glycol (Miralax) 17 gm HSPRN PRN ORAL Constipation 12/01/18 15:45 12/31/18 15:44 Zolpidem Tartrate (Ambien) 5 mg HSPRN PRN ORAL Insomnia 12/01/18 15:45 12/08/18 15:44 Freddy Antunez MD Dec 03, 2018 12:06
[2018-12-03] MEDS: Donepezil 10mg tab ORAL SCH (12:21)
--- NOTE | 2018-12-03 13:07 | General Progress Note ---
Assessment/Plan Problem List: (1) Altered mental status ICD Codes: R41.82 - Altered mental status, unspecified SNOMED: 980154719 (2) Alzheimer's dementia ICD Codes: G30.9 - Alzheimer's disease, unspecified; F02.80 - Dementia in other diseases classified elsewhere without behavioral disturbance SNOMED: 98493974 (3) DVT (deep venous thrombosis) ICD Codes: I82.409 - Acute embolism and thrombosis of unspecified deep veins of unspecified lower extremity SNOMED: 269089550 Status: unchanged Assessment/Plan psyc f/u heme f/u cbc bmp am dc plan Subjective Allergies: Coded Allergies: No Known Allergies (Unverified , 12/01/18) All Systems: reviewed and negative except above Subjective sl confused in bed Objective Last 24 Hour Vital Signs Date Time Temp Pulse Resp B/P (MAP) Pulse Ox O2 Delivery O2 Flow Rate FiO2 12/03/18 12:00 98.7 81 18 120/98 (105) 99 12/03/18 09:00 Room Air 12/03/18 08:00 98.1 72 17 91/78 (82) 98 12/03/18 04:00 98.2 90 18 118/80 (93) 97 12/03/18 00:00 98.4 81 18 123/78 (93) 96 12/02/18 21:00 Room Air 12/02/18 20:00 98.2 86 19 120/84 (96) 97 12/02/18 16:00 98.5 75 18 132/78 (96) 100 Intake and Output 12/02/18 12/03/18 19:00 07:00 Intake Total 1082.736 ml 240 ml Balance 1082.736 ml 240 ml Intake Oral 1000 ml 240 ml IV Total 82.736 ml # Voids 4 2 # Bowel Movements 1 1 Laboratory Tests 12/02/18 15:00: Activated Partial Thromboplast Time > 150*H 12/02/18 23:20: Activated Partial Thromboplast Time 81H 12/03/18 04:10: Activated Partial Thromboplast Time 95H, White Blood Count 7.6, Red Blood Count 3.73L, Hemoglobin 11.6L, Hematocrit 34.2L, Mean Corpuscular Volume 92, Mean Corpuscular Hemoglobin 31.0, Mean Corpuscular Hemoglobin Concent 33.8, Red Cell Distribution Width 13.1, Platelet Count 167, Mean Platelet Volume 5.5L, Neutrophils (%) (Auto) 61.8, Lymphocytes (%) (Auto) 27.4, Monocytes (%) (Auto) 9.0, Eosinophils (%) (Auto) 1.2, Basophils (%) (Auto) 0.6, Sodium Level 140, Potassium Level 3.7, Chloride Level 107, Carbon Dioxide Level 25, Anion Gap 8, Blood Urea Nitrogen 17, Creatinine 0.8, Estimat Glomerular Filtration Rate , Glucose Level 97, Calcium Level 9.1 Height (Feet): 5 Height (Inches): 4.00 Weight (Pounds): 113 General Appearance: lethargic EENT: normal ENT inspection Neck: normal alignment Cardiovascular: normal peripheral pulses, normal rate, regular rhythm Respiratory/Chest: chest wall non-tender, lungs clear, normal breath sounds Abdomen: normal bowel sounds, non tender, soft Extremities: normal inspection Edema: no edema noted Arm (L), no edema noted Arm (R), no edema noted Leg (L), no edema noted Leg (R), no edema noted Pedal (L), no edema noted Pedal (R), no edema noted Generalized Neurologic: motor weakness Skin: normal pigmentation, warm/dry Gabriel Jerry DO Dec 03, 2018 13:07
--- NOTE | 2018-12-03 13:13 | Consultation ---
DATE OF CONSULTATION: 12/01/2018 CHIEF COMPLAINT: Leg swelling. HISTORY OF PRESENT ILLNESS: The patient is an 88-year-old Latin female, who resides in a custodial. She has a lower extremity ultrasound, which was noted to be positive for DVT. Orthopedic consultation was obtained for further care and recommendation. The patient was also noted to have some type of fracture on the tibia. It is unknown exactly when this fracture occurred. PAST MEDICAL HISTORY: Reviewed. PAST SURGICAL HISTORY: Reviewed. MEDICATIONS: Reviewed. PHYSICAL EXAMINATION: EXTREMITIES: Shows some swelling on the right proximal tib-fib. No significant knee effusion. VITAL SIGNS: Afebrile. Stable vital signs. NEUROLOGIC: The patient has cognitive impairment due to underlying dementia. DIAGNOSTIC DATA: Ultrasound of lower extremity shows positive for DVT. ASSESSMENT: 1. Right lower extremity DVT. 2. Right proximal tibia fracture. DISCUSSION: At this point, I am not sure exactly what the fracture looks like and given the patient's cognitive impairment, what I recommend is to get 2-views of the right knee to see if the fracture looks like in good overall position . Therefore, conservative treatment with bedrest is quite reasonable, it does not appear that she needs obvious brace or anything like that particularly in light of the fact that she had a recent DVT in the right lower extremity. We will get the imaging studies and then continue bedrest until the fracture heals. In terms of DVT, I will leave that up to the primary team doctor to address. Walt Gross M.D. DR: Juana JOB#: [id number] CC:
--- NOTE | 2018-12-03 13:32 | NUR ---
*-* INSURANCE *-* ALL CLINICLAS, REVIEW AND INTERQUAL FAXED TO: [employer] REPORTED TO: RAY VILLA#: PND FRONT DESK REPRESENTATIVE: PND F#: [phone] PLEASE FAX CLINICALS TO [facility] #
[2018-12-03 14:25] LABS: INR 1.1 (0.9-1.1)
--- NOTE | 2018-12-03 15:09 | NUR ---
CASE MANAGEMENT:REVIEW 12/03/18 SI: AMS. RLE DVT. RT PROXIMAL TIBIA FRACTURE 98.7 81 18 120/98 99% ON RA H/H-11.6/34.2 PT+11.8 INR-1.1 IS: HEPARIN GTT COUMADIN 2.5MG PO X1 : MED/SURG STATUS 3 EAST PLAN: SEEN BY ORTHO ~ CONSERVATIVE TREATMENT
[2018-12-03 16:00] VITALS: BP 124/83
[2018-12-03] MEDS ORDERED: Warfarin Sodium 1mg ORAL SCH (17:00)
--- NOTE | 2018-12-03 18:17 | NUR ---
NURSE NOTES: PATIENT DOING WELL TODAY WITH RLE IMMOBILIZER ON. TURNED IN BED Q2H. SKIN INTACT. FAMILY AT BEDSIDE. COUMADIN 2.5 MG PO STARTED THIS EVENING. FAMILY INFORMED. CALL LIGHT WITHIN REACH. SIDERAILS UP X2. BED IN LOW AND LOCKED POSITION.
--- NOTE | 2018-12-03 18:27 | Cardiac Electrophysiology PN ---
Assessment/Plan Assessment/Plan 1. HTN, Stable off meds 2. DVT on Coumadin per RX 3. Right proximal tibia fracture.Nos surgical per Dr Mera Subjective Subjective Barely talks. Confused. Off tele. Objective Last 24 Hour Vital Signs Date Time Temp Pulse Resp B/P (MAP) Pulse Ox O2 Delivery O2 Flow Rate FiO2 12/03/18 16:00 98.2 57 18 124/83 (97) 99 12/03/18 12:00 98.7 81 18 120/98 (105) 99 12/03/18 09:00 Room Air 12/03/18 08:00 98.1 72 17 91/78 (82) 98 12/03/18 04:00 98.2 90 18 118/80 (93) 97 12/03/18 00:00 98.4 81 18 123/78 (93) 96 12/02/18 21:00 Room Air 12/02/18 20:00 98.2 86 19 120/84 (96) 97 Intake and Output 12/02/18 12/03/18 18:59 06:59 Intake Total 1082.736 ml 240 ml Balance 1082.736 ml 240 ml Intake Oral 1000 ml 240 ml IV Total 82.736 ml # Voids 4 2 # Bowel Movements 1 1 Laboratory Tests Test 12/02/18 23:20 12/03/18 04:10 Activated Partial Thromboplast Time 81 SEC (23-33) H 95 SEC (23-33) H White Blood Count 7.6 K/UL (4.8-10.8) Red Blood Count 3.73 M/UL (4.20-5.40) L Hemoglobin 11.6 G/DL (12.0-16.0) L Hematocrit 34.2 % (37.0-47.0) L Mean Corpuscular Volume 92 FL (80-99) Mean Corpuscular Hemoglobin 31.0 PG (27.0-31.0) Mean Corpuscular Hemoglobin Concent 33.8 G/DL (32.0-36.0) Red Cell Distribution Width 13.1 % (11.6-14.8) Platelet Count 167 K/UL (150-450) Mean Platelet Volume 5.5 FL (6.5-10.1) L Neutrophils (%) (Auto) 61.8 % (45.0-75.0) Lymphocytes (%) (Auto) 27.4 % (20.0-45.0) Monocytes (%) (Auto) 9.0 % (1.0-10.0) Eosinophils (%) (Auto) 1.2 % (0.0-3.0) Basophils (%) (Auto) 0.6 % (0.0-2.0) Prothrombin Time 11.8 SEC (9.30-11.50) H Prothromb Time International Ratio 1.1 (0.9-1.1) Sodium Level 140 MMOL/L (136-145) Potassium Level 3.7 MMOL/L (3.5-5.1) Chloride Level 107 MMOL/L (98-107) Carbon Dioxide Level 25 MMOL/L (21-32) Anion Gap 8 mmol/L (5-15) Blood Urea Nitrogen 17 mg/dL (7-18) Creatinine 0.8 MG/DL (0.55-1.30) Estimat Glomerular Filtration Rate mL/min (>60) Glucose Level 97 MG/DL (74-106) Calcium Level 9.1 MG/DL (8.5-10.1) Microbiology Date/Time Source Procedure Growth Status 12/01/18 16:00 Nasal Nares MRSA Culture - Final Complete 12/01/18 16:00 Rectum VRE Culture - Final NO VANCOMYCIN RESISTANT ENTEROCOCCUS ... Complete 12/01/18 16:00 Rectum - Final NO CARBAPENEM-RESISTANT ENTEROBACTERI... Complete Objective HEENT: No JVD Cardiovascular: normal peripheral pulses, normal rate, regular rhythm Respiratory/Chest: chest wall non-tender, lungs clear, normal breath sounds Abdomen: normal bowel sounds, non tender, soft Extremities: Ankle in immobilizer Edema: no edema Neurologic: motor weakness Timur Valencia MD Dec 03, 2018 18:27
--- NOTE | 2018-12-03 19:32 | NUR ---
NURSE NOTES: Received report from Chris Obando. Patient is laying in bed, aox1. No signs of distress or shortness of breath. Heparin drip at 16 u/hr. Leg immobilizer on. Bed low, side rails upx2. Will continue to monitor.
--- NOTE | 2018-12-03 19:46 | NUR ---
HAND-OFF: Report given to KIMBERLY CACERES RN.
[2018-12-03 20:00] VITALS: BP 94/74
--- NOTE | 2018-12-03 21:23 | General Progress Note ---
Assessment/Plan Assessment/Plan Assessment and Recs Problem List: # DVT (deep venous thrombosis) of the lower vein popliteal and femoral likely due to megace --> have started on heparin gtt --> monitor for sob or development of pe --> okay to trasnsition to coumadin inr goal 203 # Coagulopathy is due to coumadin use --> have started on coumadin inr goal 2-3 --> dose adjustment is per pharmacy # Alzheimer's dementia --> donepezil and neuro f/u The timing of this note does not necessarily reflect the time of the patient was seen. Greatly appreciate consultation! Subjective ROS Limited/Unobtainable: Yes Allergies: Coded Allergies: No Known Allergies (Unverified , 12/01/18) Subjective 12/03: awake, comfortable, no events reported. Objective Last 24 Hour Vital Signs Date Time Temp Pulse Resp B/P (MAP) Pulse Ox O2 Delivery O2 Flow Rate FiO2 12/03/18 16:00 98.2 57 18 124/83 (97) 99 12/03/18 12:00 98.7 81 18 120/98 (105) 99 12/03/18 09:00 Room Air 12/03/18 08:00 98.1 72 17 91/78 (82) 98 12/03/18 04:00 98.2 90 18 118/80 (93) 97 12/03/18 00:00 98.4 81 18 123/78 (93) 96 Intake and Output 12/02/18 12/03/18 18:59 06:59 Intake Total 1082.736 ml 240 ml Balance 1082.736 ml 240 ml Intake Oral 1000 ml 240 ml IV Total 82.736 ml # Voids 4 2 # Bowel Movements 1 1 Laboratory Tests 12/02/18 23:20: Activated Partial Thromboplast Time 81H 12/03/18 04:10: Activated Partial Thromboplast Time 95H, White Blood Count 7.6, Red Blood Count 3.73L, Hemoglobin 11.6L, Hematocrit 34.2L, Mean Corpuscular Volume 92, Mean Corpuscular Hemoglobin 31.0, Mean Corpuscular Hemoglobin Concent 33.8, Red Cell Distribution Width 13.1, Platelet Count 167, Mean Platelet Volume 5.5L, Neutrophils (%) (Auto) 61.8, Lymphocytes (%) (Auto) 27.4, Monocytes (%) (Auto) 9.0, Eosinophils (%) (Auto) 1.2, Basophils (%) (Auto) 0.6, Prothrombin Time 11.8H, Prothromb Time International Ratio 1.1, Sodium Level 140, Potassium Level 3.7, Chloride Level 107, Carbon Dioxide Level 25, Anion Gap 8, Blood Urea Nitrogen 17, Creatinine 0.8, Estimat Glomerular Filtration Rate , Glucose Level 97, Calcium Level 9.1 Height (Feet): 5 Height (Inches): 4.00 Weight (Pounds): 113 Objective Physical Exam General Appearance: WD/WN, no apparent distress Lines, tubes and drains: peripheral, central line HEENT: normocephalic, atraumatic Neck: non-tender, normal alignment Respiratory/Chest: chest wall non-tender, lungs clear, normal breath sounds Cardiovascular/Chest: normal rate, no JVD Abdomen: non tender, soft Genitourinary/Rectal: normal genital exam Extremities: non-tender Romain Max MD Dec 03, 2018 21:23
--- NOTE | 2018-12-03 22:00 | Progress Note ---
DATE: 12/03/2018 NOTE: POOR AUDIO. SUBJECTIVE: The patient fell yesterday and diagnosed with tibial fracture. OBJECTIVE: GENERAL: The patient is resting comfortably on the examination bed. She has underlying cognitive impairment. VITAL SIGNS: Afebrile. Stable vital signs. EXTREMITIES: Right leg examination shows some swelling. No ecchymosis. DIAGNOSTIC DATA: Two views of the right tibia showed fracture nondisplaced tibial fracture. Right lower extremity ultrasound cosistent with DVT. DISCUSSION: At this point, I recommend nonoperative treatment given medical comorbidities Can consider putting knee immobilizer on. Repeat xrays in 6 weeks to see if it is healing. Therefore, we will see the patient back in 6 weeks with imaging studies. Walt Gross M.D. DR: Juana JOB#: [id number] CC: FREDI
[2018-12-04] VITALS: BP 114/86
[2018-12-04 04:00] VITALS: BP 99/70
[2018-12-04 04:11] LABS: BASOPHILS % (AUTO) 0.5 % (0.0-2.0); EOSINOPHILS % (AUTO) 1.4 % (0.0-3.0); HEMATOCRIT 34.8 % (37.0-47.0); HEMOGLOBIN 11.9 G/DL (12.0-16.0); MEAN CORPUSCULAR VOLUME 91 FL (80-99); MONOCYTES % (AUTO) 7.9 % (1.0-10.0); NEUTROPHILS % (AUTO) 61.1 % (45.0-75.0); PLATELET COUNT 214 K/UL (150-450); RED BLOOD COUNT 3.81 M/UL (4.20-5.40); RED CELL DISTRIBUTION WIDTH 12.9 % (11.6-14.8); WHITE BLOOD COUNT 8.1 K/UL (4.8-10.8)
[2018-12-04 04:20] LABS: ANION GAP 6 mmol/L (5-15); BLOOD UREA NITROGEN 17 mg/dL (7-18); CALCIUM 9.1 MG/DL (8.5-10.1); CARBON DIOXIDE 25 MMOL/L (21-32); CHLORIDE 107 MMOL/L (98-107); CREATININE 0.8 MG/DL (0.55-1.30); POTASSIUM 3.9 MMOL/L (3.5-5.1); SODIUM 138 MMOL/L (136-145)
--- NOTE | 2018-12-04 04:39 | NUR ---
NURSE NOTES: PTT 83 this morning. No rate changes at this time.
--- NOTE | 2018-12-04 07:20 | NUR ---
NURSE NOTES: WALKING ROUNDS DONE WITH OUTGOING RN. PATIENT IN BED IN SIDE LYING POSITION. AOX1 TO NAME. IV SITE PATENT. HEPARIN GTT INFUSING @ CURRENT RATE. PTT THERAPEUTIC. BED IN LOW LOCKED POSITION. CALL LIGHT WITHIN REACH.
--- NOTE | 2018-12-04 07:46 | NUR ---
HAND-OFF: Report given to FELTON Obando. Patient stable.
[2018-12-04 08:00] VITALS: BP 145/70
[2018-12-04] MEDS: Donepezil 10mg tab ORAL SCH (08:54)
[2018-12-04] MEDS: Heparin 25,000u/D5W 500ml 500 ML IV SCH (10:43)
--- NOTE | 2018-12-04 10:48 | Cardiac Electrophysiology PN ---
Assessment/Plan Assessment/Plan 1. HTN, Stable off meds 2. DVT on Heparin and Coumadin per RX 3. Right proximal tibia fracture.Non surgical per Dr Mera DC to [facility] after INR>2 Subjective Subjective Confused. Off tele.RN at bedside. Awaiting INR to become therapeutic. On Heparin drip Objective Last 24 Hour Vital Signs Date Time Temp Pulse Resp B/P (MAP) Pulse Ox O2 Delivery O2 Flow Rate FiO2 12/04/18 09:00 Room Air 12/04/18 08:00 98.0 70 17 145/70 (95) 97 12/04/18 04:00 98.7 70 20 99/70 (80) 98 12/04/18 00:00 98.0 73 20 114/86 (95) 98 12/03/18 21:00 Room Air 12/03/18 20:00 99.6 74 18 94/74 (81) 99 12/03/18 16:00 98.2 57 18 124/83 (97) 99 12/03/18 12:00 98.7 81 18 120/98 (105) 99 Intake and Output 12/03/18 12/04/18 19:00 07:00 Intake Total 600 ml Balance 600 ml Intake Oral 600 ml # Voids 3 3 # Bowel Movements 2 Laboratory Tests Test 12/04/18 04:02 White Blood Count 8.1 K/UL (4.8-10.8) Red Blood Count 3.81 M/UL (4.20-5.40) L Hemoglobin 11.9 G/DL (12.0-16.0) L Hematocrit 34.8 % (37.0-47.0) L Mean Corpuscular Volume 91 FL (80-99) Mean Corpuscular Hemoglobin 31.3 PG (27.0-31.0) H Mean Corpuscular Hemoglobin Concent 34.2 G/DL (32.0-36.0) Red Cell Distribution Width 12.9 % (11.6-14.8) Platelet Count 214 K/UL (150-450) Mean Platelet Volume 5.8 FL (6.5-10.1) L Neutrophils (%) (Auto) 61.1 % (45.0-75.0) Lymphocytes (%) (Auto) 29.0 % (20.0-45.0) Monocytes (%) (Auto) 7.9 % (1.0-10.0) Eosinophils (%) (Auto) 1.4 % (0.0-3.0) Basophils (%) (Auto) 0.5 % (0.0-2.0) Prothrombin Time 10.6 SEC (9.30-11.50) Prothromb Time International Ratio 1.0 (0.9-1.1) Activated Partial Thromboplast Time 83 SEC (23-33) H Sodium Level 138 MMOL/L (136-145) Potassium Level 3.9 MMOL/L (3.5-5.1) Chloride Level 107 MMOL/L (98-107) Carbon Dioxide Level 25 MMOL/L (21-32) Anion Gap 6 mmol/L (5-15) Blood Urea Nitrogen 17 mg/dL (7-18) Creatinine 0.8 MG/DL (0.55-1.30) Estimat Glomerular Filtration Rate mL/min (>60) Glucose Level 98 MG/DL (74-106) Calcium Level 9.1 MG/DL (8.5-10.1) Microbiology Date/Time Source Procedure Growth Status 12/01/18 16:00 Nasal Nares MRSA Culture - Final Complete 12/01/18 16:00 Rectum VRE Culture - Final NO VANCOMYCIN RESISTANT ENTEROCOCCUS ... Complete 12/01/18 16:00 Rectum - Final NO CARBAPENEM-RESISTANT ENTEROBACTERI... Complete Objective HEENT: No JVD Cardiovascular: normal peripheral pulses, normal rate, regular rhythm Respiratory/Chest: chest wall non-tender, lungs clear, normal breath sounds Abdomen: normal bowel sounds, non tender, soft Extremities: Ankle in immobilizer Edema: no edema Neurologic: motor weakness Timur Valencia MD Dec 04, 2018 10:48
[2018-12-04 12:00] VITALS: BP 110/55
--- NOTE | 2018-12-04 12:28 | Cardiology Report ---
APPROVED REPORT EXAM: Two-dimensional and M-mode echocardiogram with Doppler and color Doppler. INDICATION Ejection Fraction M-Mode DIMENSIONS IVSd1.2 (0.7-1.1cm)Left Atrium (MM)4.0 (1.6-4.0cm) LVDd3.0 (3.5-5.6cm)Aortic Root2.6 (2.0-3.7cm) PWd0.8 (0.7-1.1cm)Aortic Cusp Exc.1.5 (1.5-2.0cm) LVDs1.8 (2.5-4.0cm) PWs1.7 cm Technically difficult and limited study due to patient's resistance. Study quality precludes accurate assessment of regional wall motion. Normal left ventricular chamber size, systolic function and wall motion. Left ventricular ejection fraction estimated to be 60 %. Mild left ventricular hypertrophy. No evidence of pericardial effusion. All other cardiac chamber sizes are within normal limits. Focal aortic valve sclerosis with adequate cusp excursion. Mildly thickened mitral valve leaflets with normal excursion. Moderate mitral annulus and aortic root calcification. Pulmonic valve not visualized. Normal tricuspid valve structure. Subcostal views not obtainable. A color flow and spectral Doppler study was performed and revealed: No aortic insufficiency. Trace mitral regurgitation. Mitral diastolic velocities suggest mild left ventricular diastolic dysfunction (Grade I). Mild tricuspid regurgitation. Tricuspid systolic velocities suggests peak right ventricular systolic pressure of 21 mmHg.
--- NOTE | 2018-12-04 13:07 | Pulmonology Progress Note ---
Assessment/Plan Problems: (1) DVT (deep venous thrombosis) (2) Alzheimer's dementia Assessment/Plan IV heparin start coumadin by pharmacy f/u H/h dc megace, probably the cause of dvt symptomatic treatment eating well Subjective ROS Limited/Unobtainable: No Constitutional: Reports: no symptoms HEENT: Repors: no symptoms Respiratory: Reports: no symptoms Allergies: Coded Allergies: No Known Allergies (Unverified , 12/01/18) Objective Last 24 Hour Vital Signs Date Time Temp Pulse Resp B/P (MAP) Pulse Ox O2 Delivery O2 Flow Rate FiO2 12/04/18 12:00 98.1 70 17 110/55 (73) 97 12/04/18 09:00 Room Air 12/04/18 08:00 98.0 70 17 145/70 (95) 97 12/04/18 04:00 98.7 70 20 99/70 (80) 98 12/04/18 00:00 98.0 73 20 114/86 (95) 98 12/03/18 21:00 Room Air 12/03/18 20:00 99.6 74 18 94/74 (81) 99 12/03/18 16:00 98.2 57 18 124/83 (97) 99 Intake and Output 12/03/18 12/04/18 19:00 07:00 Intake Total 600 ml Balance 600 ml Intake Oral 600 ml # Voids 3 3 # Bowel Movements 2 Objective General Appearance: cachectic HEENT: normocephalic, atraumatic Respiratory/Chest: chest wall non-tender, lungs clear Breasts: no masses Cardiovascular: normal peripheral pulses Abdomen: normal bowel sounds, soft, non tender Extremities: no cyanosis, no clubbing Microbiology Date/Time Source Procedure Growth Status 12/01/18 16:00 Nasal Nares MRSA Culture - Final Complete 12/01/18 16:00 Rectum VRE Culture - Final NO VANCOMYCIN RESISTANT ENTEROCOCCUS ... Complete 12/01/18 16:00 Rectum - Final NO CARBAPENEM-RESISTANT ENTEROBACTERI... Complete Laboratory Tests 12/04/18 04:02: White Blood Count 8.1, Red Blood Count 3.81L, Hemoglobin 11.9L, Hematocrit 34.8L , Mean Corpuscular Volume 91, Mean Corpuscular Hemoglobin 31.3H, Mean Corpuscular Hemoglobin Concent 34.2, Red Cell Distribution Width 12.9, Platelet Count 214, Mean Platelet Volume 5.8L, Neutrophils (%) (Auto) 61.1, Lymphocytes ( %) (Auto) 29.0, Monocytes (%) (Auto) 7.9, Eosinophils (%) (Auto) 1.4, Basophils (%) (Auto) 0.5, Prothrombin Time 10.6, Prothromb Time International Ratio 1.0, Activated Partial Thromboplast Time 83H, Sodium Level 138, Potassium Level 3.9, Chloride Level 107, Carbon Dioxide Level 25, Anion Gap 6, Blood Urea Nitrogen 17 , Creatinine 0.8, Estimat Glomerular Filtration Rate , Glucose Level 98, Calcium Level 9.1 Current Medications Medications (Trade) Dose Ordered Sig/Evita Route PRN Reason Start Time Stop Time Status Last Admin Dose Admin Acetaminophen (Tylenol) 650 mg Q4H PRN ORAL fever (temp>100.5F) 12/01/18 15:45 12/31/18 15:44 Al Hydroxide/Mg Hydroxide (Mylanta II) 30 ml Q6H PRN ORAL dyspepsia 12/01/18 15:45 12/31/18 15:44 Dextrose (Dextrose 50%) 25 ml Q30M PRN IV hypoglycemia 12/01/18 16:00 12/31/18 15:46 Dextrose (Dextrose 50%) 50 ml Q30M PRN IV hypoglycemia 12/01/18 16:00 12/31/18 15:59 Donepezil HCl (Aricept) 10 mg DAILY ORAL 12/02/18 09:00 01/01/19 08:59 12/04/18 08:54 Heparin Sodium/ Dextrose 500 ml @ 16.547 mls/ hr ADJUST PER PROTOCOL IV 12/02/18 17:00 01/01/19 16:59 12/04/18 10:43 Lorazepam (Ativan 2mg/ml 1ml) 0.5 mg Q4H PRN IV For Anxiety 12/01/18 15:45 12/08/18 15:44 12/04/18 08:54 Morphine Sulfate (Morphine Sulfate) 1 mg Q4H PRN IVP For Pain 12/01/18 15:45 12/08/18 15:44 Ondansetron HCl (Zofran) 4 mg Q6H PRN IVP Nausea & Vomiting 12/01/18 15:45 12/31/18 15:44 Polyethylene Glycol (Miralax) 17 gm HSPRN PRN ORAL Constipation 12/01/18 15:45 12/31/18 15:44 Warfarin Sodium (Coumadin per pharmacy) 1 ea DAILY PRN MISC Per rx protocol 12/03/18 12:15 01/02/19 12:14 Zolpidem Tartrate (Ambien) 5 mg HSPRN PRN ORAL Insomnia 12/01/18 15:45 12/08/18 15:44 Freddy Antunez MD Dec 04, 2018 13:07
--- NOTE | 2018-12-04 13:25 | General Progress Note ---
Assessment/Plan Problem List: (1) Altered mental status ICD Codes: R41.82 - Altered mental status, unspecified SNOMED: 317917127 (2) Alzheimer's dementia ICD Codes: G30.9 - Alzheimer's disease, unspecified; F02.80 - Dementia in other diseases classified elsewhere without behavioral disturbance SNOMED: 96131738 (3) DVT (deep venous thrombosis) ICD Codes: I82.409 - Acute embolism and thrombosis of unspecified deep veins of unspecified lower extremity SNOMED: 683874052 Status: stable, progressing Assessment/Plan psyc f/u heme f/u dc if clear Subjective Constitutional: Reports: weakness Allergies: Coded Allergies: No Known Allergies (Unverified , 12/01/18) All Systems: reviewed and negative except above Subjective sl confused in bed Objective Last 24 Hour Vital Signs Date Time Temp Pulse Resp B/P (MAP) Pulse Ox O2 Delivery O2 Flow Rate FiO2 12/04/18 12:00 98.1 70 17 110/55 (73) 97 12/04/18 09:00 Room Air 12/04/18 08:00 98.0 70 17 145/70 (95) 97 12/04/18 04:00 98.7 70 20 99/70 (80) 98 12/04/18 00:00 98.0 73 20 114/86 (95) 98 12/03/18 21:00 Room Air 12/03/18 20:00 99.6 74 18 94/74 (81) 99 12/03/18 16:00 98.2 57 18 124/83 (97) 99 Intake and Output 12/03/18 12/04/18 19:00 07:00 Intake Total 600 ml Balance 600 ml Intake Oral 600 ml # Voids 3 3 # Bowel Movements 2 Laboratory Tests 12/04/18 04:02: White Blood Count 8.1, Red Blood Count 3.81L, Hemoglobin 11.9L, Hematocrit 34.8L , Mean Corpuscular Volume 91, Mean Corpuscular Hemoglobin 31.3H, Mean Corpuscular Hemoglobin Concent 34.2, Red Cell Distribution Width 12.9, Platelet Count 214, Mean Platelet Volume 5.8L, Neutrophils (%) (Auto) 61.1, Lymphocytes ( %) (Auto) 29.0, Monocytes (%) (Auto) 7.9, Eosinophils (%) (Auto) 1.4, Basophils (%) (Auto) 0.5, Prothrombin Time 10.6, Prothromb Time International Ratio 1.0, Activated Partial Thromboplast Time 83H, Sodium Level 138, Potassium Level 3.9, Chloride Level 107, Carbon Dioxide Level 25, Anion Gap 6, Blood Urea Nitrogen 17 , Creatinine 0.8, Estimat Glomerular Filtration Rate , Glucose Level 98, Calcium Level 9.1 Height (Feet): 5 Height (Inches): 4.00 Weight (Pounds): 113 General Appearance: lethargic EENT: normal ENT inspection Neck: normal alignment Cardiovascular: normal peripheral pulses, normal rate, regular rhythm Respiratory/Chest: chest wall non-tender, lungs clear, normal breath sounds Abdomen: normal bowel sounds, non tender, soft Extremities: normal inspection Edema: no edema noted Arm (L), no edema noted Arm (R), no edema noted Leg (L), no edema noted Leg (R), no edema noted Pedal (L), no edema noted Pedal (R), no edema noted Generalized Neurologic: motor weakness Skin: normal pigmentation, warm/dry Gabriel Jerry DO Dec 04, 2018 13:25
--- NOTE | 2018-12-04 15:28 | NUR ---
*-* INSURANCE *-* ALL CLINICLAS, REVIEW AND INTERQUAL FAXED TO: [email or web address] REPORTED TO: RAY VILLA#: PND BUS STARTER: PND F#: [phone] PLEASE FAX CLINICALS TO [facility]OVE #
[2018-12-04 16:00] VITALS: BP 133/62
[2018-12-04] MEDS ORDERED: Warfarin Sodium 4mg PO SCH (17:00)
--- NOTE | 2018-12-04 17:04 | General Progress Note ---
Assessment/Plan Assessment/Plan Assessment and Recs Problem List: # DVT (deep venous thrombosis) of the lower vein popliteal and femoral likely due to megace --> have started on heparin gtt --> monitor for sob or development of pe --> okay to trasnsition to coumadin inr goal 2-3 --> dosing per pharmacy # Coagulopathy is due to coumadin use --> have started on coumadin inr goal 2-3 --> dose adjustment is per pharmacy # Anemia of chronic disease --> w/u as outpatient # Alzheimer's dementia --> donepezil and neuro f/u The timing of this note does not necessarily reflect the time of the patient was seen. Greatly appreciate consultation! Subjective Constitutional: Denies: no symptoms, chills, diaphoresis, fever, malaise, weakness, other HEENT: Denies: no symptoms, eye pain, blurred vision, tearing, double vision, ear pain, ear discharge, nose pain, nose congestion, throat pain, throat swelling, mouth pain, mouth swelling, other Cardiovascular: Denies: no symptoms, chest pain, edema, irregular heart rate, lightheadedness, palpitations, syncope, other Respiratory: Denies: no symptoms, cough, orthopnea, shortness of breath, SOB with excertion, SOB at rest, sputum, stridor, wheezing, other Gastrointestinal/Abdominal: Denies: no symptoms, abdomen distended, abdominal pain, black stools, tarry stools, blood in stool, constipated, diarrhea, difficulty swallowing, nausea, poor appetite, poor fluid intake, rectal bleeding , vomiting, other Neurologic/Psychiatric: Denies: no symptoms, anxiety, depressed, emotional problems, headache, numbness, paresthesia, pre-existing deficit, seizure, tingling, tremors, weakness, other Endocrine: Denies: no symptoms, excessive sweating, flushing, intolerance to cold, intolerance to heat, increased hunger, increased thirst, increased urine, unexplained weight gain, unexplained weight loss, other Allergies: Coded Allergies: No Known Allergies (Unverified , 12/01/18) Subjective 12/03: awake, comfortable, no events reported. 12/04: no events, on coumadin, feeling better Objective Last 24 Hour Vital Signs Date Time Temp Pulse Resp B/P (MAP) Pulse Ox O2 Delivery O2 Flow Rate FiO2 12/04/18 12:00 98.1 70 17 110/55 (73) 97 12/04/18 09:00 Room Air 12/04/18 08:00 98.0 70 17 145/70 (95) 97 12/04/18 04:00 98.7 70 20 99/70 (80) 98 12/04/18 00:00 98.0 73 20 114/86 (95) 98 12/03/18 21:00 Room Air 12/03/18 20:00 99.6 74 18 94/74 (81) 99 Intake and Output 12/03/18 12/04/18 18:59 06:59 Intake Total 600 ml Balance 600 ml Intake Oral 600 ml # Voids 3 3 # Bowel Movements 2 Laboratory Tests 12/04/18 04:02: White Blood Count 8.1, Red Blood Count 3.81L, Hemoglobin 11.9L, Hematocrit 34.8L , Mean Corpuscular Volume 91, Mean Corpuscular Hemoglobin 31.3H, Mean Corpuscular Hemoglobin Concent 34.2, Red Cell Distribution Width 12.9, Platelet Count 214, Mean Platelet Volume 5.8L, Neutrophils (%) (Auto) 61.1, Lymphocytes ( %) (Auto) 29.0, Monocytes (%) (Auto) 7.9, Eosinophils (%) (Auto) 1.4, Basophils (%) (Auto) 0.5, Prothrombin Time 10.6, Prothromb Time International Ratio 1.0, Activated Partial Thromboplast Time 83H, Sodium Level 138, Potassium Level 3.9, Chloride Level 107, Carbon Dioxide Level 25, Anion Gap 6, Blood Urea Nitrogen 17 , Creatinine 0.8, Estimat Glomerular Filtration Rate , Glucose Level 98, Calcium Level 9.1 Height (Feet): 5 Height (Inches): 4.00 Weight (Pounds): 113 Objective Physical Exam General Appearance: WD/WN, no apparent distress Lines, tubes and drains: peripheral, central line HEENT: normocephalic, atraumatic Neck: non-tender, normal alignment Respiratory/Chest: chest wall non-tender, lungs clear, normal breath sounds Cardiovascular/Chest: normal rate, no JVD Abdomen: non tender, soft Genitourinary/Rectal: normal genital exam Extremities: non-tender Romain Max MD Dec 04, 2018 17:04
--- NOTE | 2018-12-04 18:33 | NUR ---
NURSE NOTES: PATIENT REMAINS STABLE THROUGHOUT THE DAY. TURNED Q2H. RLE IMMOBILIZER IN PLACE CMS WNL.RLE DISCOLORATION IMPROVED. VSS. AFEBRILE.
--- NOTE | 2018-12-04 19:29 | NUR ---
NURSE NOTES: Received report from Chris Obando. Patient is in bed, receiving bed bath. No signs of respiratory distress. Leg immobilizer on. No pain noted. Bed low, side rails upx3. Will continue to monitor.
--- NOTE | 2018-12-04 19:30 | NUR ---
HAND-OFF: Report given to KIMBERLY CACERES RN.
[2018-12-04 20:00] VITALS: BP 124/89
[2018-12-05] VITALS: BP 101/59
[2018-12-05 04:00] VITALS: BP 127/68
--- NOTE | 2018-12-05 07:15 | NUR ---
HAND-OFF: Report given to FELTON Yañez. Patient stable.
--- NOTE | 2018-12-05 07:55 | NUR ---
NURSE NOTES: Received patient on bed, awake. IV site intact and patent. Leg immobilizer on right leg. Bed in low and locked position, call light in reach. No signs of respiratory distress or pain. Room board updated, will continue to monitor.
[2018-12-05 08:00] VITALS: BP 129/77
--- NOTE | 2018-12-05 08:03 | NUR ---
HAND-OFF: Report given to FELTON Dawson. Patient stable.
--- NOTE | 2018-12-05 08:36 | General Progress Note ---
Assessment/Plan Problem List: (1) Altered mental status ICD Codes: R41.82 - Altered mental status, unspecified SNOMED: 055197743 (2) Alzheimer's dementia ICD Codes: G30.9 - Alzheimer's disease, unspecified; F02.80 - Dementia in other diseases classified elsewhere without behavioral disturbance SNOMED: 38473795 (3) DVT (deep venous thrombosis) ICD Codes: I82.409 - Acute embolism and thrombosis of unspecified deep veins of unspecified lower extremity SNOMED: 745600704 Status: unchanged Assessment/Plan psyc f/u heme f/u cbc bmp dc if clear Subjective Constitutional: Reports: weakness Allergies: Coded Allergies: No Known Allergies (Unverified , 12/01/18) All Systems: reviewed and negative except above Subjective sl confused in bed Objective Last 24 Hour Vital Signs Date Time Temp Pulse Resp B/P (MAP) Pulse Ox O2 Delivery O2 Flow Rate FiO2 12/05/18 04:00 98.1 66 18 127/68 (87) 97 12/05/18 00:00 98.4 79 18 101/59 (73) 96 12/04/18 20:13 Room Air 12/04/18 20:00 99.1 67 18 124/89 (101) 95 12/04/18 16:00 98.1 71 17 133/62 (85) 98 12/04/18 12:00 98.1 70 17 110/55 (73) 97 12/04/18 09:00 Room Air Intake and Output 12/04/18 12/05/18 19:00 07:00 Intake Total 500 ml Balance 500 ml Intake Oral 500 ml # Voids 4 5 # Bowel Movements 1 2 Laboratory Tests 12/05/18 04:13: Prothrombin Time 10.7, Prothromb Time International Ratio 1.0, Activated Partial Thromboplast Time 69H Height (Feet): 5 Height (Inches): 4.00 Weight (Pounds): 113 General Appearance: lethargic EENT: PERRL/EOMI Neck: normal alignment Cardiovascular: normal peripheral pulses, normal rate, regular rhythm Respiratory/Chest: chest wall non-tender, lungs clear, normal breath sounds Abdomen: normal bowel sounds, non tender, soft Extremities: normal inspection Edema: no edema noted Arm (L), no edema noted Arm (R), no edema noted Leg (L), no edema noted Leg (R), no edema noted Pedal (L), no edema noted Pedal (R), no edema noted Generalized Neurologic: motor weakness Skin: normal pigmentation, warm/dry Gabriel Jerry Dec 05, 2018 08:36
[2018-12-05] MEDS: Donepezil 10mg tab ORAL SCH (08:52)
[2018-12-05 12:00] VITALS: BP 137/72
--- NOTE | 2018-12-05 15:50 | Cardiac Electrophysiology PN ---
Assessment/Plan Assessment/Plan 1. HTN, Stable off meds 2. DVT on Heparin and Coumadin per RX 3. Right proximal tibia fracture.Non surgical per Dr Mear DC to [facility] after INR>2 DW daughter Subjective Subjective Pleasantly confused. Off tele. Daughter at bedside. On Heparin drip Objective Last 24 Hour Vital Signs Date Time Temp Pulse Resp B/P (MAP) Pulse Ox O2 Delivery O2 Flow Rate FiO2 12/05/18 12:00 98.3 86 19 137/72 (93) 99 12/05/18 09:00 Room Air 12/05/18 08:00 97.7 79 20 129/77 (94) 97 12/05/18 04:00 98.1 66 18 127/68 (87) 97 12/05/18 00:00 98.4 79 18 101/59 (73) 96 12/04/18 20:13 Room Air 12/04/18 20:00 99.1 67 18 124/89 (101) 95 12/04/18 16:00 98.1 71 17 133/62 (85) 98 Intake and Output 12/04/18 12/05/18 19:00 07:00 Intake Total 500 ml Balance 500 ml Intake Oral 500 ml # Voids 4 5 # Bowel Movements 1 2 Laboratory Tests Test 12/05/18 04:13 Prothrombin Time 10.7 SEC (9.30-11.50) Prothromb Time International Ratio 1.0 (0.9-1.1) Activated Partial Thromboplast Time 69 SEC (23-33) H Objective HEENT: No JVD Cardiovascular: normal peripheral pulses, normal rate, regular rhythm Respiratory/Chest: chest wall non-tender, lungs clear, normal breath sounds Abdomen: normal bowel sounds, non tender, soft Extremities: Ankle in immobilizer Edema: no edema Neurologic: motor weakness Timur Valencia MD Dec 05, 2018 15:50
--- NOTE | 2018-12-05 16:04 | Pulmonology Progress Note ---
Assessment/Plan Problems: (1) DVT (deep venous thrombosis) (2) Alzheimer's dementia Assessment/Plan IV heparin start coumadin by pharmacy f/u H/h dc megace, probably the cause of dvt symptomatic treatment eating well Subjective ROS Limited/Unobtainable: No Constitutional: Reports: no symptoms HEENT: Repors: no symptoms Allergies: Coded Allergies: No Known Allergies (Unverified , 12/01/18) Objective Last 24 Hour Vital Signs Date Time Temp Pulse Resp B/P (MAP) Pulse Ox O2 Delivery O2 Flow Rate FiO2 12/05/18 12:00 98.3 86 19 137/72 (93) 99 12/05/18 09:00 Room Air 12/05/18 08:00 97.7 79 20 129/77 (94) 97 12/05/18 04:00 98.1 66 18 127/68 (87) 97 12/05/18 00:00 98.4 79 18 101/59 (73) 96 12/04/18 20:13 Room Air 12/04/18 20:00 99.1 67 18 124/89 (101) 95 Intake and Output 12/04/18 12/05/18 19:00 07:00 Intake Total 500 ml Balance 500 ml Intake Oral 500 ml # Voids 4 5 # Bowel Movements 1 2 Objective General Appearance: cachectic HEENT: normocephalic, atraumatic Respiratory/Chest: chest wall non-tender, lungs clear Breasts: no masses Cardiovascular: normal peripheral pulses Abdomen: normal bowel sounds, soft, non tender Extremities: no cyanosis, no clubbing Laboratory Tests 12/05/18 04:13: Prothrombin Time 10.7, Prothromb Time International Ratio 1.0, Activated Partial Thromboplast Time 69H Current Medications Medications (Trade) Dose Ordered Sig/Evita Route PRN Reason Start Time Stop Time Status Last Admin Dose Admin Acetaminophen (Tylenol) 650 mg Q4H PRN ORAL fever (temp>100.5F) 12/01/18 15:45 12/31/18 15:44 Al Hydroxide/Mg Hydroxide (Mylanta II) 30 ml Q6H PRN ORAL dyspepsia 12/01/18 15:45 12/31/18 15:44 Dextrose (Dextrose 50%) 25 ml Q30M PRN IV hypoglycemia 12/01/18 16:00 12/31/18 15:46 Dextrose (Dextrose 50%) 50 ml Q30M PRN IV hypoglycemia 12/01/18 16:00 12/31/18 15:59 Donepezil HCl (Aricept) 10 mg DAILY ORAL 12/02/18 09:00 01/01/19 08:59 12/05/18 08:52 Heparin Sodium/ Dextrose 500 ml @ 16.547 mls/ hr ADJUST PER PROTOCOL IV 12/02/18 17:00 01/01/19 16:59 12/04/18 10:43 Lorazepam (Ativan 2mg/ml 1ml) 0.5 mg Q4H PRN IV For Anxiety 12/01/18 15:45 12/08/18 15:44 12/04/18 08:54 Morphine Sulfate (Morphine Sulfate) 1 mg Q4H PRN IVP For Pain 12/01/18 15:45 12/08/18 15:44 Ondansetron HCl (Zofran) 4 mg Q6H PRN IVP Nausea & Vomiting 12/01/18 15:45 12/31/18 15:44 Polyethylene Glycol (Miralax) 17 gm HSPRN PRN ORAL Constipation 12/01/18 15:45 12/31/18 15:44 Warfarin Sodium (Coumadin per pharmacy) 1 ea DAILY PRN MISC Per rx protocol 12/03/18 12:15 01/02/19 12:14 Warfarin Sodium (Coumadin) 5 mg COUMADIN ORAL 12/05/18 17:00 12/10/18 16:59 Zolpidem Tartrate (Ambien) 5 mg HSPRN PRN ORAL Insomnia 12/01/18 15:45 12/08/18 15:44 Freddy Antunez MD Dec 05, 2018 16:04
[2018-12-05 16:05] VITALS: BP 125/76
[2018-12-05] MEDS: Warfarin Sodium 5mg ORAL SCH (17:16)
[2018-12-05] MEDS: Heparin 25,000u/D5W 500ml 500 ML IV SCH (17:17)
--- NOTE | 2018-12-05 19:24 | NUR ---
CASE MANAGEMENT: REVIEW SI: DVT T 98.3 HR 86 RR 18 BP 101/59 SAT 97% ROOM AIR APTT 69 IS: COUMADIN 5MG PO HEPARIN GTT MED/SURG STATUS DCP: PATIENT IS FROM [facility]
--- NOTE | 2018-12-05 19:42 | NUR ---
HAND-OFF: Report given to FELTON Perdue.
--- NOTE | 2018-12-05 19:45 | NUR ---
NURSE NOTES: Pt lying in bed w/bed in lowest position and call light within reach. Pt alert to self only, VSS, and in no apparent distress at this time. IV site intact/asymptomatic w/heparin drip @ 16 units/kg/hr; and skin intact w/sacral redness noted. Will continue to monitor.
[2018-12-05 20:00] VITALS: BP 120/75
[2018-12-06] VITALS: BP 142/82
[2018-12-06 04:00] VITALS: BP 164/79
[2018-12-06 04:16] LABS: BASOPHILS % (AUTO) 0.5 % (0.0-2.0); EOSINOPHILS % (AUTO) 1.2 % (0.0-3.0); HEMATOCRIT 34.8 % (37.0-47.0); HEMOGLOBIN 11.8 G/DL (12.0-16.0); LYMPHOCYTES % (AUTO) 26.1 % (20.0-45.0); MEAN CORPUSCULAR VOLUME 92 FL (80-99); MONOCYTES % (AUTO) 7.3 % (1.0-10.0); NEUTROPHILS % (AUTO) 64.9 % (45.0-75.0); PLATELET COUNT 259 K/UL (150-450); RED BLOOD COUNT 3.77 M/UL (4.20-5.40); RED CELL DISTRIBUTION WIDTH 13.2 % (11.6-14.8); WHITE BLOOD COUNT 6.9 K/UL (4.8-10.8)
[2018-12-06 04:26] LABS: ANION GAP 9 mmol/L (5-15); BLOOD UREA NITROGEN 16 mg/dL (7-18); CALCIUM 9.3 MG/DL (8.5-10.1); CARBON DIOXIDE 26 MMOL/L (21-32); CHLORIDE 104 MMOL/L (98-107); CREATININE 0.7 MG/DL (0.55-1.30); POTASSIUM 3.7 MMOL/L (3.5-5.1); SODIUM 138 MMOL/L (136-145)
[2018-12-06 04:36] LABS: INR 1.1 (0.9-1.1)
--- NOTE | 2018-12-06 07:05 | NUR ---
HAND-OFF: Report given to FELTON Dawson.
--- NOTE | 2018-12-06 07:35 | NUR ---
NURSE NOTES: Received patient on bed, asleep. IV site intact and patent. Bed in low and locked position, call light in reach. No signs of respiratory distress or pain. Room board updated, will continue to monitor.
[2018-12-06 08:00] VITALS: BP 140/83
--- NOTE | 2018-12-06 08:39 | General Progress Note ---
Assessment/Plan Problem List: (1) Altered mental status ICD Codes: R41.82 - Altered mental status, unspecified SNOMED: 502564293 (2) Alzheimer's dementia ICD Codes: G30.9 - Alzheimer's disease, unspecified; F02.80 - Dementia in other diseases classified elsewhere without behavioral disturbance SNOMED: [id number] (3) DVT (deep venous thrombosis) ICD Codes: I82.409 - Acute embolism and thrombosis of unspecified deep veins of unspecified lower extremity SNOMED: 038524253 Status: stable, progressing Assessment/Plan psyc f/u heme f/u cbc bmp dc if clear Subjective Constitutional: Reports: weakness Allergies: Coded Allergies: No Known Allergies (Unverified , 12/01/18) All Systems: reviewed and negative except above Subjective sl confused in bed Objective Last 24 Hour Vital Signs Date Time Temp Pulse Resp B/P (MAP) Pulse Ox O2 Delivery O2 Flow Rate FiO2 12/06/18 08:00 98.4 73 17 140/83 (102) 97 12/06/18 04:00 97.3 77 18 164/79 (107) 96 12/06/18 00:00 99.0 81 18 142/82 (102) 97 12/05/18 21:00 Room Air 12/05/18 20:00 99.2 80 18 120/75 (90) 94 12/05/18 16:05 98.2 86 18 125/76 (92) 99 12/05/18 12:00 98.3 86 19 137/72 (93) 99 12/05/18 09:00 Room Air Intake and Output 12/05/18 12/06/18 19:00 07:00 Intake Total 736.547 ml 302.017 ml Balance 736.547 ml 302.017 ml Intake Oral 720 ml 120 ml IV Total 16.547 ml 182.017 ml # Voids 3 3 # Bowel Movements 2 Laboratory Tests 12/06/18 03:53: White Blood Count 6.9, Red Blood Count 3.77L, Hemoglobin 11.8L, Hematocrit 34.8L , Mean Corpuscular Volume 92, Mean Corpuscular Hemoglobin 31.3H, Mean Corpuscular Hemoglobin Concent 33.9, Red Cell Distribution Width 13.2, Platelet Count 259, Mean Platelet Volume 5.1L, Neutrophils (%) (Auto) 64.9, Lymphocytes ( %) (Auto) 26.1, Monocytes (%) (Auto) 7.3, Eosinophils (%) (Auto) 1.2, Basophils (%) (Auto) 0.5, Prothrombin Time 11.7H, Prothromb Time International Ratio 1.1, Activated Partial Thromboplast Time 65H, Sodium Level 138, Potassium Level 3.7, Chloride Level 104, Carbon Dioxide Level 26, Anion Gap 9, Blood Urea Nitrogen 16 , Creatinine 0.7, Estimat Glomerular Filtration Rate , Glucose Level 93, Calcium Level 9.3 Height (Feet): 5 Height (Inches): 4.00 Weight (Pounds): 113 General Appearance: lethargic EENT: normal ENT inspection Neck: normal alignment Cardiovascular: normal peripheral pulses, normal rate, regular rhythm Respiratory/Chest: chest wall non-tender, lungs clear, normal breath sounds Abdomen: normal bowel sounds, non tender, soft Extremities: normal inspection Edema: no edema noted Arm (L), no edema noted Arm (R), no edema noted Leg (L), no edema noted Leg (R), no edema noted Pedal (L), no edema noted Pedal (R), no edema noted Generalized Neurologic: motor weakness Skin: normal pigmentation, warm/dry Gabriel Jerry DO Dec 06, 2018 08:39
[2018-12-06] MEDS: Donepezil 10mg tab ORAL SCH (09:05)
[2018-12-06 12:00] VITALS: BP 114/72
[2018-12-06 16:00] VITALS: BP 120/65
--- NOTE | 2018-12-06 16:57 | Pulmonology Progress Note ---
Assessment/Plan Problems: (1) DVT (deep venous thrombosis) (2) Alzheimer's dementia Assessment/Plan IV heparin on coumadin by pharmacy f/u H/h dc jason, probably the cause of dvt symptomatic treatment eating well Subjective Interval Events: doing better Allergies: Coded Allergies: No Known Allergies (Unverified , 12/01/18) Objective Last 24 Hour Vital Signs Date Time Temp Pulse Resp B/P (MAP) Pulse Ox O2 Delivery O2 Flow Rate FiO2 12/06/18 12:00 98.1 84 18 114/72 (86) 96 12/06/18 09:00 Room Air 12/06/18 08:00 98.4 73 17 140/83 (102) 97 12/06/18 04:00 97.3 77 18 164/79 (107) 96 12/06/18 00:00 99.0 81 18 142/82 (102) 97 12/05/18 21:00 Room Air 12/05/18 20:00 99.2 80 18 120/75 (90) 94 Intake and Output 12/05/18 12/06/18 19:00 07:00 Intake Total 736.547 ml 318.564 ml Balance 736.547 ml 318.564 ml Intake Oral 720 ml 120 ml IV Total 16.547 ml 198.564 ml # Voids 3 3 # Bowel Movements 2 Objective General Appearance: cachectic HEENT: normocephalic, atraumatic Respiratory/Chest: chest wall non-tender, lungs clear Breasts: no masses Cardiovascular: normal peripheral pulses Abdomen: normal bowel sounds, soft, non tender Extremities: no cyanosis, no clubbing Laboratory Tests 12/06/18 03:53: White Blood Count 6.9, Red Blood Count 3.77L, Hemoglobin 11.8L, Hematocrit 34.8L , Mean Corpuscular Volume 92, Mean Corpuscular Hemoglobin 31.3H, Mean Corpuscular Hemoglobin Concent 33.9, Red Cell Distribution Width 13.2, Platelet Count 259, Mean Platelet Volume 5.1L, Neutrophils (%) (Auto) 64.9, Lymphocytes ( %) (Auto) 26.1, Monocytes (%) (Auto) 7.3, Eosinophils (%) (Auto) 1.2, Basophils (%) (Auto) 0.5, Prothrombin Time 11.7H, Prothromb Time International Ratio 1.1, Activated Partial Thromboplast Time 65H, Sodium Level 138, Potassium Level 3.7, Chloride Level 104, Carbon Dioxide Level 26, Anion Gap 9, Blood Urea Nitrogen 16 , Creatinine 0.7, Estimat Glomerular Filtration Rate , Glucose Level 93, Calcium Level 9.3 Current Medications Medications (Trade) Dose Ordered Sig/Evita Route PRN Reason Start Time Stop Time Status Last Admin Dose Admin Acetaminophen (Tylenol) 650 mg Q4H PRN ORAL fever (temp>100.5F) 12/01/18 15:45 12/31/18 15:44 Al Hydroxide/Mg Hydroxide (Mylanta II) 30 ml Q6H PRN ORAL dyspepsia 12/01/18 15:45 12/31/18 15:44 Dextrose (Dextrose 50%) 25 ml Q30M PRN IV hypoglycemia 12/01/18 16:00 12/31/18 15:46 Dextrose (Dextrose 50%) 50 ml Q30M PRN IV hypoglycemia 12/01/18 16:00 12/31/18 15:59 Donepezil HCl (Aricept) 10 mg DAILY ORAL 12/02/18 09:00 01/01/19 08:59 12/06/18 09:05 Heparin Sodium/ Dextrose 500 ml @ 16.547 mls/ hr ADJUST PER PROTOCOL IV 12/02/18 17:00 01/01/19 16:59 12/05/18 17:17 Lorazepam (Ativan 2mg/ml 1ml) 0.5 mg Q4H PRN IV For Anxiety 12/01/18 15:45 12/08/18 15:44 12/04/18 08:54 Morphine Sulfate (Morphine Sulfate) 1 mg Q4H PRN IVP For Pain 12/01/18 15:45 12/08/18 15:44 Ondansetron HCl (Zofran) 4 mg Q6H PRN IVP Nausea & Vomiting 12/01/18 15:45 12/31/18 15:44 Polyethylene Glycol (Miralax) 17 gm HSPRN PRN ORAL Constipation 12/01/18 15:45 12/31/18 15:44 Warfarin Sodium (Coumadin per pharmacy) 1 ea DAILY PRN MISC Per rx protocol 12/03/18 12:15 01/02/19 12:14 Warfarin Sodium (Coumadin) 5 mg COUMADIN ORAL 12/05/18 17:00 12/10/18 16:59 12/05/18 17:16 Zolpidem Tartrate (Ambien) 5 mg HSPRN PRN ORAL Insomnia 12/01/18 15:45 12/08/18 15:44 Freddy Antunez MD Dec 06, 2018 16:57
[2018-12-06] MEDS: Warfarin Sodium 5mg ORAL SCH (17:42)
[2018-12-06] MEDS: Heparin 25,000u/D5W 500ml 500 ML IV SCH (17:43)
--- NOTE | 2018-12-06 19:29 | NUR ---
CASE MANAGEMENT: REVIEW SI: DVT T 99.0 HR 81 RR 18 BP 142/82 SAT 97% ROOM AIR PT 11.7 APTT 65 H/H 11.8/34.[address] 5.1 IS: COUMADIN 5MG PO HEPARIN GTT MED/SURG STATUS DCP: PATIENT IS FROM [facility]
--- NOTE | 2018-12-06 19:35 | NUR ---
CASE MANAGEMENT: REVIEW SI: DVT T 99.0 HR 81 RR 18 BP 142/82 SAT 97% ROOM AIR PT 11.7 APTT 65 H/H 11.8/34.[address] 268 IS: COUMADIN 5MG PO HEPARIN GTT MED/SURG STATUS DCP: PATIENT IS FROM [facility]
--- NOTE | 2018-12-06 19:46 | NUR ---
HAND-OFF: Report given to FELTON Wills.
--- NOTE | 2018-12-06 19:50 | NUR ---
PT RECEIVED WITH STABLE CONDITION. HEPARIN DRIP PER ORDER PTT IN AM.
[2018-12-06 20:00] VITALS: BP 117/64
--- NOTE | 2018-12-06 23:02 | General Progress Note ---
Assessment/Plan Assessment/Plan Assessment and Recs Problem List: # DVT (deep venous thrombosis) of the lower vein popliteal and femoral likely due to megace --> have started on heparin gtt --> monitor for sob or development of pe --> okay to trasnsition to coumadin inr goal 2-3 --> dosing per pharmacy # Coagulopathy is due to coumadin use --> have started on coumadin inr goal 2-3 --> dose adjustment is per pharmacy # Anemia of chronic disease --> w/u as outpatient # Alzheimer's dementia --> donepezil and neuro f/u The timing of this note does not necessarily reflect the time of the patient was seen. Greatly appreciate consultation! Subjective Allergies: Coded Allergies: No Known Allergies (Unverified , 12/01/18) Subjective 12/03: awake, comfortable, no events reported. 12/04: no events, on coumadin, feeling better 12/06: seen by bedside, awake, comfortable, no events Objective Last 24 Hour Vital Signs Date Time Temp Pulse Resp B/P (MAP) Pulse Ox O2 Delivery O2 Flow Rate FiO2 12/06/18 20:00 98.6 84 18 117/64 (81) 96 12/06/18 16:00 98.6 79 18 120/65 (83) 96 12/06/18 12:00 98.1 84 18 114/72 (86) 96 12/06/18 09:00 Room Air 12/06/18 08:00 98.4 73 17 140/83 (102) 97 12/06/18 04:00 97.3 77 18 164/79 (107) 96 12/06/18 00:00 99.0 81 18 142/82 (102) 97 Intake and Output 12/05/18 12/06/18 19:00 07:00 Intake Total 736.547 ml 318.564 ml Balance 736.547 ml 318.564 ml Intake Oral 720 ml 120 ml IV Total 16.547 ml 198.564 ml # Voids 3 3 # Bowel Movements 2 Laboratory Tests 12/06/18 03:53: White Blood Count 6.9, Red Blood Count 3.77L, Hemoglobin 11.8L, Hematocrit 34.8L , Mean Corpuscular Volume 92, Mean Corpuscular Hemoglobin 31.3H, Mean Corpuscular Hemoglobin Concent 33.9, Red Cell Distribution Width 13.2, Platelet Count 259, Mean Platelet Volume 5.1L, Neutrophils (%) (Auto) 64.9, Lymphocytes ( %) (Auto) 26.1, Monocytes (%) (Auto) 7.3, Eosinophils (%) (Auto) 1.2, Basophils (%) (Auto) 0.5, Prothrombin Time 11.7H, Prothromb Time International Ratio 1.1, Activated Partial Thromboplast Time 65H, Sodium Level 138, Potassium Level 3.7, Chloride Level 104, Carbon Dioxide Level 26, Anion Gap 9, Blood Urea Nitrogen 16 , Creatinine 0.7, Estimat Glomerular Filtration Rate , Glucose Level 93, Calcium Level 9.3 Height (Feet): 5 Height (Inches): 4.00 Weight (Pounds): 113 Objective Physical Exam General Appearance: WD/WN, no apparent distress Lines, tubes and drains: peripheral, central line HEENT: normocephalic, atraumatic Neck: non-tender, normal alignment Respiratory/Chest: chest wall non-tender, lungs clear, normal breath sounds Cardiovascular/Chest: normal rate, no JVD Abdomen: non tender, soft Genitourinary/Rectal: normal genital exam Extremities: non-tender Romain Max MD Dec 06, 2018 23:02
[2018-12-07] VITALS (7 sets, daily range): BP systolic 103–120; BP diastolic 63–80
--- NOTE | 2018-12-07 07:10 | NUR ---
NURSE NOTES: Received report from Yosi Wills RN. Rounding done with outgoing nurse. Patient a/o x1, nonverbal. No respiratory distress noted. IV is patent. Call light within reach. Will continue to monitor.
--- NOTE | 2018-12-07 07:20 | NUR ---
HAND-OFF: Report given to MYLENE WITH STABLE CONDITION PTT NO RESULT YET ENDORCED..
[2018-12-07 07:31] LABS: BASOPHILS % (AUTO) 0.5 % (0.0-2.0); EOSINOPHILS % (AUTO) 2.3 % (0.0-3.0); HEMATOCRIT 34.6 % (37.0-47.0); HEMOGLOBIN 11.5 G/DL (12.0-16.0); LYMPHOCYTES % (AUTO) 30.4 % (20.0-45.0); MEAN CORPUSCULAR VOLUME 93 FL (80-99); MONOCYTES % (AUTO) 7.8 % (1.0-10.0); PLATELET COUNT 268 K/UL (150-450); RED BLOOD COUNT 3.71 M/UL (4.20-5.40); WHITE BLOOD COUNT 5.5 K/UL (4.8-10.8)
[2018-12-07 07:34] LABS: ANION GAP 11 mmol/L (5-15); BLOOD UREA NITROGEN 19 mg/dL (7-18); CALCIUM 9.3 MG/DL (8.5-10.1); CARBON DIOXIDE 24 MMOL/L (21-32); CHLORIDE 104 MMOL/L (98-107); CREATININE 0.7 MG/DL (0.55-1.30); POTASSIUM 3.6 MMOL/L (3.5-5.1); SODIUM 139 MMOL/L (136-145)
[2018-12-07 07:35] LABS: INR 1.2 (0.9-1.1)
[2018-12-07] MEDS ORDERED: Heparin 5000 units/ml inj IV SCH (08:15)
[2018-12-07] MEDS: Donepezil 10mg tab ORAL SCH (08:22)
[2018-12-07] MEDS: Heparin 25,000u/D5W 500ml 500 ML IV SCH (08:24)
--- NOTE | 2018-12-07 12:36 | Pulmonology Progress Note ---
Assessment/Plan Problems: (1) DVT (deep venous thrombosis) (2) Alzheimer's dementia Assessment/Plan INR is 1. 2 IV heparin on coumadin by pharmacy f/u H/h jf gomez, probably the cause of dvt symptomatic treatment eating well Subjective ROS Limited/Unobtainable: No Constitutional: Reports: no symptoms HEENT: Repors: no symptoms Allergies: Coded Allergies: No Known Allergies (Unverified , 12/01/18) Objective Last 24 Hour Vital Signs Date Time Temp Pulse Resp B/P (MAP) Pulse Ox O2 Delivery O2 Flow Rate FiO2 12/07/18 12:00 98.1 69 17 110/71 (84) 96 12/07/18 09:00 98.9 81 18 120/66 (84) 96 12/07/18 09:00 Room Air 12/07/18 08:33 97.9 74 18 108/67 (81) 97 12/07/18 04:00 99.5 78 18 108/80 (89) 83 12/07/18 00:00 99.1 83 18 105/63 (77) 83 12/06/18 21:00 Room Air 12/06/18 20:00 98.6 84 18 117/64 (81) 96 12/06/18 16:00 98.6 79 18 120/65 (83) 96 Intake and Output 12/06/18 12/07/18 19:00 07:00 Intake Total 1182.017 ml 282.017 ml Balance 1182.017 ml 282.017 ml Intake Oral 1000 ml 100 ml IV Total 182.017 ml 182.017 ml # Voids 5 3 # Bowel Movements 2 2 Objective General Appearance: cachectic HEENT: normocephalic, atraumatic Respiratory/Chest: chest wall non-tender, lungs clear Breasts: no masses Cardiovascular: normal peripheral pulses Abdomen: normal bowel sounds, soft, non tender Extremities: no cyanosis, no clubbing Laboratory Tests 12/07/18 05:15: White Blood Count 5.5, Red Blood Count 3.71L, Hemoglobin 11.5L, Hematocrit 34.6L , Mean Corpuscular Volume 93, Mean Corpuscular Hemoglobin 30.9, Mean Corpuscular Hemoglobin Concent 33.1, Red Cell Distribution Width 13.0, Platelet Count 268, Mean Platelet Volume 4.7L, Neutrophils (%) (Auto) 59.0, Lymphocytes ( %) (Auto) 30.4, Monocytes (%) (Auto) 7.8, Eosinophils (%) (Auto) 2.3, Basophils (%) (Auto) 0.5, Prothrombin Time 12.6H, Prothromb Time International Ratio 1.2H , Activated Partial Thromboplast Time 62H, Sodium Level 139, Potassium Level 3.6 , Chloride Level 104, Carbon Dioxide Level 24, Anion Gap 11, Blood Urea Nitrogen 19H, Creatinine 0.7, Estimat Glomerular Filtration Rate , Glucose Level 89, Calcium Level 9.3 Current Medications Medications (Trade) Dose Ordered Sig/Evita Route PRN Reason Start Time Stop Time Status Last Admin Dose Admin Acetaminophen (Tylenol) 650 mg Q4H PRN ORAL fever (temp>100.5F) 12/01/18 15:45 12/31/18 15:44 Al Hydroxide/Mg Hydroxide (Mylanta II) 30 ml Q6H PRN ORAL dyspepsia 12/01/18 15:45 12/31/18 15:44 Dextrose (Dextrose 50%) 25 ml Q30M PRN IV hypoglycemia 12/01/18 16:00 12/31/18 15:46 Dextrose (Dextrose 50%) 50 ml Q30M PRN IV hypoglycemia 12/01/18 16:00 12/31/18 15:59 Donepezil HCl (Aricept) 10 mg DAILY ORAL 12/02/18 09:00 01/01/19 08:59 12/07/18 08:22 Heparin Sodium/ Dextrose 500 ml @ 18.616 mls/ hr ADJUST PER PROTOCOL IV 12/07/18 08:15 01/06/19 08:14 12/07/18 08:24 Lorazepam (Ativan 2mg/ml 1ml) 0.5 mg Q4H PRN IV For Anxiety 12/01/18 15:45 12/08/18 15:44 12/04/18 08:54 Morphine Sulfate (Morphine Sulfate) 1 mg Q4H PRN IVP For Pain 12/01/18 15:45 12/08/18 15:44 Ondansetron HCl (Zofran) 4 mg Q6H PRN IVP Nausea & Vomiting 12/01/18 15:45 12/31/18 15:44 Polyethylene Glycol (Miralax) 17 gm HSPRN PRN ORAL Constipation 12/01/18 15:45 12/31/18 15:44 Warfarin Sodium (Coumadin per pharmacy) 1 ea DAILY PRN MISC Per rx protocol 12/03/18 12:15 01/02/19 12:14 Warfarin Sodium (Coumadin) 6 mg COUMADIN ORAL 12/07/18 17:00 12/07/18 18:00 Zolpidem Tartrate (Ambien) 5 mg HSPRN PRN ORAL Insomnia 12/01/18 15:45 12/08/18 15:44 Freddy Antunez MD Dec 07, 2018 12:36
--- NOTE | 2018-12-07 13:31 | Cardiac Electrophysiology PN ---
Assessment/Plan Assessment/Plan 1. HTN, Stable off meds 2. DVT on Heparin and Coumadin per RX. INR still 1.2 3. Right proximal tibia fracture.Non surgical per Dr Mera DC to [facility] after INR>2 Subjective Subjective Pleasantly confused. Off tele. On Heparin drip Objective Last 24 Hour Vital Signs Date Time Temp Pulse Resp B/P (MAP) Pulse Ox O2 Delivery O2 Flow Rate FiO2 12/07/18 12:00 98.1 69 17 110/71 (84) 96 12/07/18 09:00 98.9 81 18 120/66 (84) 96 12/07/18 09:00 Room Air 12/07/18 08:33 97.9 74 18 108/67 (81) 97 12/07/18 04:00 99.5 78 18 108/80 (89) 83 12/07/18 00:00 99.1 83 18 105/63 (77) 83 12/06/18 21:00 Room Air 12/06/18 20:00 98.6 84 18 117/64 (81) 96 12/06/18 16:00 98.6 79 18 120/65 (83) 96 Intake and Output 12/06/18 12/07/18 19:00 07:00 Intake Total 1182.017 ml 282.017 ml Balance 1182.017 ml 282.017 ml Intake Oral 1000 ml 100 ml IV Total 182.017 ml 182.017 ml # Voids 5 3 # Bowel Movements 2 2 Laboratory Tests Test 12/07/18 05:15 White Blood Count 5.5 K/UL (4.8-10.8) Red Blood Count 3.71 M/UL (4.20-5.40) L Hemoglobin 11.5 G/DL (12.0-16.0) L Hematocrit 34.6 % (37.0-47.0) L Mean Corpuscular Volume 93 FL (80-99) Mean Corpuscular Hemoglobin 30.9 PG (27.0-31.0) Mean Corpuscular Hemoglobin Concent 33.1 G/DL (32.0-36.0) Red Cell Distribution Width 13.0 % (11.6-14.8) Platelet Count 268 K/UL (150-450) Mean Platelet Volume 4.7 FL (6.5-10.1) L Neutrophils (%) (Auto) 59.0 % (45.0-75.0) Lymphocytes (%) (Auto) 30.4 % (20.0-45.0) Monocytes (%) (Auto) 7.8 % (1.0-10.0) Eosinophils (%) (Auto) 2.3 % (0.0-3.0) Basophils (%) (Auto) 0.5 % (0.0-2.0) Prothrombin Time 12.6 SEC (9.30-11.50) H Prothromb Time International Ratio 1.2 (0.9-1.1) H Activated Partial Thromboplast Time 62 SEC (23-33) H Sodium Level 139 MMOL/L (136-145) Potassium Level 3.6 MMOL/L (3.5-5.1) Chloride Level 104 MMOL/L (98-107) Carbon Dioxide Level 24 MMOL/L (21-32) Anion Gap 11 mmol/L (5-15) Blood Urea Nitrogen 19 mg/dL (7-18) H Creatinine 0.7 MG/DL (0.55-1.30) Estimat Glomerular Filtration Rate mL/min (>60) Glucose Level 89 MG/DL (74-106) Calcium Level 9.3 MG/DL (8.5-10.1) Objective HEENT: No JVD Cardiovascular: normal peripheral pulses, normal rate, regular rhythm Respiratory/Chest: chest wall non-tender, lungs clear, normal breath sounds Abdomen: normal bowel sounds, non tender, soft Extremities: Ankle in immobilizer Edema: no edema Neurologic: motor weakness Timur Valencia MD Dec 07, 2018 13:31
--- NOTE | 2018-12-07 14:37 | General Progress Note ---
Assessment/Plan Problem List: (1) Altered mental status ICD Codes: R41.82 - Altered mental status, unspecified SNOMED: 285634395 (2) Alzheimer's dementia ICD Codes: G30.9 - Alzheimer's disease, unspecified; F02.80 - Dementia in other diseases classified elsewhere without behavioral disturbance SNOMED: 85243361 (3) DVT (deep venous thrombosis) ICD Codes: I82.409 - Acute embolism and thrombosis of unspecified deep veins of unspecified lower extremity SNOMED: 893394919 Status: unchanged Assessment/Plan psyc f/u heme f/u cbc bmp dc if clear Subjective Constitutional: Reports: weakness Allergies: Coded Allergies: No Known Allergies (Unverified , 12/01/18) All Systems: reviewed and negative except above Subjective sl confused in bed Objective Last 24 Hour Vital Signs Date Time Temp Pulse Resp B/P (MAP) Pulse Ox O2 Delivery O2 Flow Rate FiO2 12/07/18 12:00 98.1 69 17 110/71 (84) 96 12/07/18 09:00 98.9 81 18 120/66 (84) 96 12/07/18 09:00 Room Air 12/07/18 08:33 97.9 74 18 108/67 (81) 97 12/07/18 04:00 99.5 78 18 108/80 (89) 83 12/07/18 00:00 99.1 83 18 105/63 (77) 83 12/06/18 21:00 Room Air 12/06/18 20:00 98.6 84 18 117/64 (81) 96 12/06/18 16:00 98.6 79 18 120/65 (83) 96 Intake and Output 12/06/18 12/07/18 19:00 07:00 Intake Total 1182.017 ml 282.017 ml Balance 1182.017 ml 282.017 ml Intake Oral 1000 ml 100 ml IV Total 182.017 ml 182.017 ml # Voids 5 3 # Bowel Movements 2 2 Laboratory Tests 12/07/18 05:15: White Blood Count 5.5, Red Blood Count 3.71L, Hemoglobin 11.5L, Hematocrit 34.6L , Mean Corpuscular Volume 93, Mean Corpuscular Hemoglobin 30.9, Mean Corpuscular Hemoglobin Concent 33.1, Red Cell Distribution Width 13.0, Platelet Count 268, Mean Platelet Volume 4.7L, Neutrophils (%) (Auto) 59.0, Lymphocytes ( %) (Auto) 30.4, Monocytes (%) (Auto) 7.8, Eosinophils (%) (Auto) 2.3, Basophils (%) (Auto) 0.5, Prothrombin Time 12.6H, Prothromb Time International Ratio 1.2H , Activated Partial Thromboplast Time 62H, Sodium Level 139, Potassium Level 3.6 , Chloride Level 104, Carbon Dioxide Level 24, Anion Gap 11, Blood Urea Nitrogen 19H, Creatinine 0.7, Estimat Glomerular Filtration Rate , Glucose Level 89, Calcium Level 9.3 Height (Feet): 5 Height (Inches): 4.00 Weight (Pounds): 113 General Appearance: lethargic EENT: normal ENT inspection Neck: normal alignment Cardiovascular: normal peripheral pulses, normal rate, regular rhythm Respiratory/Chest: chest wall non-tender, lungs clear, normal breath sounds Abdomen: normal bowel sounds, non tender, soft Extremities: normal inspection Edema: no edema noted Arm (L), no edema noted Arm (R), no edema noted Leg (L), no edema noted Leg (R), no edema noted Pedal (L), no edema noted Pedal (R), no edema noted Generalized Neurologic: motor weakness Skin: normal pigmentation, warm/dry Gabriel Jerry DO Dec 07, 2018 14:37
[2018-12-07] MEDS ORDERED: Morphine Sulfate 2mg/ml Inj(IV/IM USE ONLY) IVP PRN (15:45)
--- NOTE | 2018-12-07 16:40 | NUR ---
*-* INSURANCE *-* ALL CLINICALS HAVE BEEN FAXED TO: [facility] GORDON:JULIO CESAR F:[phone]
[2018-12-07] MEDS ORDERED: Warfarin Sodium 3mg ORAL SCH (17:00)
--- NOTE | 2018-12-07 17:29 | General Progress Note ---
Assessment/Plan Assessment/Plan # DVT (deep venous thrombosis) of the lower vein popliteal and femoral likely due to megace --> have started on heparin gtt --> monitor for sob or development of pe --> okay to trasnsition to coumadin inr goal 2-3 --> dosing per pharmacy --> outpatient coumadin management # Coagulopathy is due to coumadin use --> have started on coumadin inr goal 2-3 --> dose adjustment is per pharmacy # Anemia of chronic disease --> w/u as outpatient # Alzheimer's dementia --> donepezil and neuro f/u The timing of this note does not necessarily reflect the time of the patient was seen. Greatly appreciate consultation! Subjective Constitutional: Denies: no symptoms, chills, diaphoresis, fever, malaise, weakness, other HEENT: Denies: no symptoms, eye pain, blurred vision, tearing, double vision, ear pain, ear discharge, nose pain, nose congestion, throat pain, throat swelling, mouth pain, mouth swelling, other Cardiovascular: Denies: no symptoms, chest pain, edema, irregular heart rate, lightheadedness, palpitations, syncope, other Respiratory: Denies: no symptoms, cough, orthopnea, shortness of breath, SOB with excertion, SOB at rest, sputum, stridor, wheezing, other Gastrointestinal/Abdominal: Denies: no symptoms, abdomen distended, abdominal pain, black stools, tarry stools, blood in stool, constipated, diarrhea, difficulty swallowing, nausea, poor appetite, poor fluid intake, rectal bleeding , vomiting, other Genitourinary: Denies: no symptoms, burning, discharge, frequency, flank pain, hematuria, incontinence, pain, urgency, other Neurologic/Psychiatric: Denies: no symptoms, anxiety, depressed, emotional problems, headache, numbness, paresthesia, pre-existing deficit, seizure, tingling, tremors, weakness, other Endocrine: Denies: no symptoms, excessive sweating, flushing, intolerance to cold, intolerance to heat, increased hunger, increased thirst, increased urine, unexplained weight gain, unexplained weight loss, other Hematologic/Lymphatic: Denies: no symptoms, anemia, easy bleeding, easy bruising, other Allergies: Coded Allergies: No Known Allergies (Unverified , 12/01/18) Subjective 12/03: awake, comfortable, no events reported. 12/04: no events, on coumadin, feeling better 12/06: seen by bedside, awake, comfortable, no events 12/07: no fevers or chills noted, on hep gtt Objective Last 24 Hour Vital Signs Date Time Temp Pulse Resp B/P (MAP) Pulse Ox O2 Delivery O2 Flow Rate FiO2 12/07/18 16:00 98.0 86 18 103/67 (79) 94 12/07/18 12:00 98.1 69 17 110/71 (84) 96 12/07/18 09:00 98.9 81 18 120/66 (84) 96 12/07/18 09:00 Room Air 12/07/18 08:33 97.9 74 18 108/67 (81) 97 12/07/18 04:00 99.5 78 18 108/80 (89) 83 12/07/18 00:00 99.1 83 18 105/63 (77) 83 12/06/18 21:00 Room Air 12/06/18 20:00 98.6 84 18 117/64 (81) 96 Intake and Output 12/06/18 12/07/18 19:00 07:00 Intake Total 1182.017 ml 282.017 ml Balance 1182.017 ml 282.017 ml Intake Oral 1000 ml 100 ml IV Total 182.017 ml 182.017 ml # Voids 5 3 # Bowel Movements 2 2 Laboratory Tests 12/07/18 05:15: White Blood Count 5.5, Red Blood Count 3.71L, Hemoglobin 11.5L, Hematocrit 34.6L , Mean Corpuscular Volume 93, Mean Corpuscular Hemoglobin 30.9, Mean Corpuscular Hemoglobin Concent 33.1, Red Cell Distribution Width 13.0, Platelet Count 268, Mean Platelet Volume 4.7L, Neutrophils (%) (Auto) 59.0, Lymphocytes ( %) (Auto) 30.4, Monocytes (%) (Auto) 7.8, Eosinophils (%) (Auto) 2.3, Basophils (%) (Auto) 0.5, Prothrombin Time 12.6H, Prothromb Time International Ratio 1.2H , Activated Partial Thromboplast Time 62H, Sodium Level 139, Potassium Level 3.6 , Chloride Level 104, Carbon Dioxide Level 24, Anion Gap 11, Blood Urea Nitrogen 19H, Creatinine 0.7, Estimat Glomerular Filtration Rate , Glucose Level 89, Calcium Level 9.3 12/07/18 14:30: Activated Partial Thromboplast Time 95H Height (Feet): 5 Height (Inches): 4.00 Weight (Pounds): 113 Objective Physical Exam General Appearance: WD/WN, no apparent distress Lines, tubes and drains: peripheral, central line HEENT: normocephalic, atraumatic Neck: non-tender, normal alignment Respiratory/Chest: chest wall non-tender, lungs clear, normal breath sounds Cardiovascular/Chest: normal rate, no JVD Abdomen: non tender, soft Genitourinary/Rectal: normal genital exam Extremities: nt Romain Max MD Dec 07, 2018 17:29
--- NOTE | 2018-12-07 19:10 | NUR ---
HAND-OFF: Report given to Brittanie, [employer]. Patient in stable condition.
--- NOTE | 2018-12-07 19:28 | NUR ---
NURSE NOTES Patient received from WILDER MEDINA R.N. Patient A/A/OX1 Non verbal . Patient on Heparin drip per ordered . repeat PTT IN AM . LFA g#22 with Heparin Drip infusing well .FLACC no pain at this time .NO S/S/ of distress noted . patient incontinent of bowel and bladder keep clean and dry and Calazime cream applied to sacral area . patient on overlay mattress .Call light within reach . bed in low position at all times . will continue to monitor .
--- NOTE | 2018-12-07 19:32 | NUR ---
CASE MANAGEMENT: REVIEW SI: DVT T 99.5 HR 78 RR 18 BP 108/80 SAT 94% ROOM AIR H/H 11.5/34.6 PT 12.6 INR 1.2 APTT 95 IS: COUMADIN 6MG PO HEPARIN GTT MED/SURG STATUS DCP: PATIENT IS FROM [facility]
[2018-12-07] MEDS ORDERED: Zolpidem 5mg tab ORAL PRN (21:00)
[2018-12-08] VITALS: BP 122/70
[2018-12-08] MEDS: Heparin 25,000u/D5W 500ml 500 ML IV SCH (00:38)
[2018-12-08 04:00] VITALS: BP 136/56
[2018-12-08 04:18] LABS: BASOPHILS % (AUTO) 0.7 % (0.0-2.0); EOSINOPHILS % (AUTO) 1.9 % (0.0-3.0); HEMATOCRIT 36.7 % (37.0-47.0); HEMOGLOBIN 12.4 G/DL (12.0-16.0); LYMPHOCYTES % (AUTO) 33.9 % (20.0-45.0); MEAN CORPUSCULAR VOLUME 91 FL (80-99); MONOCYTES % (AUTO) 7.8 % (1.0-10.0); NEUTROPHILS % (AUTO) 55.6 % (45.0-75.0); PLATELET COUNT 322 K/UL (150-450); RED BLOOD COUNT 4.01 M/UL (4.20-5.40); RED CELL DISTRIBUTION WIDTH 13.3 % (11.6-14.8)
[2018-12-08 04:26] LABS: ANION GAP 9 mmol/L (5-15); BLOOD UREA NITROGEN 20 mg/dL (7-18); CALCIUM 9.2 MG/DL (8.5-10.1); CARBON DIOXIDE 25 MMOL/L (21-32); CHLORIDE 104 MMOL/L (98-107); CREATININE 0.8 MG/DL (0.55-1.30); SODIUM 138 MMOL/L (136-145)
[2018-12-08 04:32] LABS: INR 1.3 (0.9-1.1)
--- NOTE | 2018-12-08 07:30 | NUR ---
NURSE NOTES: Patient is in bed awake and able to follow simple commands. Patient is stable and denies pain at this time. Heparin drip running as ordered, tolerated well. Patient is comfortable in bed with call light within reach. All safety measures provided. Will continue to monitor.
--- NOTE | 2018-12-08 07:40 | NUR ---
HAND-OFF: Report given to Maria Teresa VickPatient in stable conditions.
[2018-12-08 08:00] VITALS: BP 120/71
[2018-12-08] MEDS: Donepezil 10mg tab ORAL SCH (08:52)
--- NOTE | 2018-12-08 10:59 | NUR ---
NURSE NOTES: Met with patient with Dr. Antunez, patient is restless. will give patient Ativan as instructed. Will continue to monitor.
[2018-12-08] MEDS: LORazepam Inj 2mg/ml 1ml IV PRN ×2 (11:04→17:18)
--- NOTE | 2018-12-08 11:14 | Pulmonology Progress Note ---
Assessment/Plan Problems: (1) DVT (deep venous thrombosis) (2) Alzheimer's dementia Assessment/Plan awake, confused INR is 1. 3 IV heparin on Coumadin by pharmacy f/u H/h dc jason, probably the cause of dvt symptomatic treatment eating well Subjective ROS Limited/Unobtainable: No Constitutional: Reports: no symptoms HEENT: Repors: no symptoms Allergies: Coded Allergies: No Known Allergies (Unverified , 12/01/18) Objective Last 24 Hour Vital Signs Date Time Temp Pulse Resp B/P (MAP) Pulse Ox O2 Delivery O2 Flow Rate FiO2 12/08/18 09:00 Room Air 12/08/18 08:00 97.9 70 18 120/71 (87) 97 12/08/18 04:00 97.6 69 20 136/56 (82) 98 12/08/18 00:00 98.8 76 20 122/70 (87) 97 12/07/18 21:00 Room Air 12/07/18 20:00 98.2 85 20 104/74 (84) 95 12/07/18 16:00 98.0 86 18 103/67 (79) 94 12/07/18 12:00 98.1 69 17 110/71 (84) 96 Intake and Output 12/07/18 12/08/18 18:59 06:59 Intake Total 519.254 ml 863.392 ml Balance 519.254 ml 863.392 ml Intake Oral 300 ml 640 ml IV Total 219.254 ml 223.392 ml # Voids 3 4 # Bowel Movements 2 2 Objective General Appearance: cachectic HEENT: normocephalic, atraumatic Respiratory/Chest: chest wall non-tender, lungs clear Breasts: no masses Cardiovascular: normal peripheral pulses Abdomen: normal bowel sounds, soft, non tender Extremities: no cyanosis, no clubbing Laboratory Tests 12/07/18 14:30: Activated Partial Thromboplast Time 95H 12/08/18 04:07: Activated Partial Thromboplast Time 73H, White Blood Count 6.0, Red Blood Count 4.01L, Hemoglobin 12.4, Hematocrit 36.7L, Mean Corpuscular Volume 91, Mean Corpuscular Hemoglobin 31.0, Mean Corpuscular Hemoglobin Concent 33.9, Red Cell Distribution Width 13.3, Platelet Count 322, Mean Platelet Volume 5.2L, Neutrophils (%) (Auto) 55.6, Lymphocytes (%) (Auto) 33.9, Monocytes (%) (Auto) 7.8, Eosinophils (%) (Auto) 1.9, Basophils (%) (Auto) 0.7, Prothrombin Time 14.0H, Prothromb Time International Ratio 1.3H, Sodium Level 138, Potassium Level 4.0, Chloride Level 104, Carbon Dioxide Level 25, Anion Gap 9, Blood Urea Nitrogen 20H, Creatinine 0.8, Estimat Glomerular Filtration Rate , Glucose Level 92, Calcium Level 9.2 Current Medications Medications (Trade) Dose Ordered Sig/Evita Route PRN Reason Start Time Stop Time Status Last Admin Dose Admin Acetaminophen (Tylenol) 650 mg Q4H PRN ORAL fever (temp>100.5F) 12/01/18 15:45 12/31/18 15:44 Al Hydroxide/Mg Hydroxide (Mylanta II) 30 ml Q6H PRN ORAL dyspepsia 12/01/18 15:45 12/31/18 15:44 Dextrose (Dextrose 50%) 25 ml Q30M PRN IV hypoglycemia 12/01/18 16:00 12/31/18 15:46 Dextrose (Dextrose 50%) 50 ml Q30M PRN IV hypoglycemia 12/01/18 16:00 12/31/18 15:59 Donepezil HCl (Aricept) 10 mg DAILY ORAL 12/02/18 09:00 01/01/19 08:59 12/08/18 08:52 Heparin Sodium/ Dextrose 500 ml @ 18.616 mls/ hr ADJUST PER PROTOCOL IV 12/07/18 08:15 01/06/19 08:14 12/08/18 00:38 Lorazepam (Ativan 2mg/ml 1ml) 0.5 mg Q4H PRN IV For Anxiety 12/07/18 15:15 12/12/18 15:44 12/08/18 11:04 Morphine Sulfate (Morphine Sulfate) 1 mg Q4H PRN IVP PAIN 4-10 12/07/18 15:45 12/12/18 15:44 Ondansetron HCl (Zofran) 4 mg Q6H PRN IVP Nausea & Vomiting 12/01/18 15:45 12/31/18 15:44 Polyethylene Glycol (Miralax) 17 gm HSPRN PRN ORAL Constipation 12/01/18 15:45 12/31/18 15:44 Warfarin Sodium (Coumadin per pharmacy) 1 ea DAILY PRN MISC Per rx protocol 12/03/18 12:15 01/02/19 12:14 Warfarin Sodium (Coumadin) 6 mg COUMADIN ONCE ORAL 12/08/18 17:00 12/08/18 17:01 Zolpidem Tartrate (Ambien) 5 mg HSPRN PRN ORAL Insomnia 12/07/18 21:00 12/12/18 20:59 Freddy Antunez MD Dec 08, 2018 11:14
[2018-12-08 12:00] VITALS: BP 109/60
--- NOTE | 2018-12-08 14:10 | NUR ---
CASE MANAGEMENT:REVIEW 12/08/18 SI: DVT 97.1 66 18 109/60 95% ON RA PT+14.0 INR-1.3 APTT+73 IS: HEPARIN GTT COUMADIN 6MG PO X1 IV ATIVAN Q4HRS PRN : MED/SURG STATUS 3 [facility] DCP: FROM [facility]
--- NOTE | 2018-12-08 14:24 | General Progress Note ---
Assessment/Plan Problem List: (1) Altered mental status ICD Codes: R41.82 - Altered mental status, unspecified SNOMED: 494190390 (2) Alzheimer's dementia ICD Codes: G30.9 - Alzheimer's disease, unspecified; F02.80 - Dementia in other diseases classified elsewhere without behavioral disturbance SNOMED: 51673215 (3) DVT (deep venous thrombosis) ICD Codes: I82.409 - Acute embolism and thrombosis of unspecified deep veins of unspecified lower extremity SNOMED: 948413958 Status: unchanged Assessment/Plan psyc f/u heme f/u cbc bmp dc if clear Subjective Constitutional: Reports: weakness Allergies: Coded Allergies: No Known Allergies (Unverified , 12/01/18) All Systems: reviewed and negative except above Subjective sleepy calm Objective Last 24 Hour Vital Signs Date Time Temp Pulse Resp B/P (MAP) Pulse Ox O2 Delivery O2 Flow Rate FiO2 12/08/18 12:00 97.1 66 18 109/60 (76) 95 12/08/18 09:00 Room Air 12/08/18 08:00 97.9 70 18 120/71 (87) 97 12/08/18 04:00 97.6 69 20 136/56 (82) 98 12/08/18 00:00 98.8 76 20 122/70 (87) 97 12/07/18 21:00 Room Air 12/07/18 20:00 98.2 85 20 104/74 (84) 95 12/07/18 16:00 98.0 86 18 103/67 (79) 94 Intake and Output 12/07/18 12/08/18 19:00 07:00 Intake Total 502.707 ml 863.392 ml Balance 502.707 ml 863.392 ml Intake Oral 300 ml 640 ml IV Total 202.707 ml 223.392 ml # Voids 3 4 # Bowel Movements 1 2 Laboratory Tests 12/07/18 14:30: Activated Partial Thromboplast Time 95H 12/08/18 04:07: Activated Partial Thromboplast Time 73H, White Blood Count 6.0, Red Blood Count 4.01L, Hemoglobin 12.4, Hematocrit 36.7L, Mean Corpuscular Volume 91, Mean Corpuscular Hemoglobin 31.0, Mean Corpuscular Hemoglobin Concent 33.9, Red Cell Distribution Width 13.3, Platelet Count 322, Mean Platelet Volume 5.2L, Neutrophils (%) (Auto) 55.6, Lymphocytes (%) (Auto) 33.9, Monocytes (%) (Auto) 7.8, Eosinophils (%) (Auto) 1.9, Basophils (%) (Auto) 0.7, Prothrombin Time 14.0H, Prothromb Time International Ratio 1.3H, Sodium Level 138, Potassium Level 4.0, Chloride Level 104, Carbon Dioxide Level 25, Anion Gap 9, Blood Urea Nitrogen 20H, Creatinine 0.8, Estimat Glomerular Filtration Rate , Glucose Level 92, Calcium Level 9.2 Height (Feet): 5 Height (Inches): 4.00 Weight (Pounds): 113 General Appearance: lethargic EENT: normal ENT inspection Neck: normal alignment Cardiovascular: normal peripheral pulses, normal rate, regular rhythm Respiratory/Chest: chest wall non-tender, lungs clear, normal breath sounds Abdomen: normal bowel sounds, non tender, soft Extremities: normal inspection Edema: no edema noted Arm (L), no edema noted Arm (R), no edema noted Leg (L), no edema noted Leg (R), no edema noted Pedal (L), no edema noted Pedal (R), no edema noted Generalized Neurologic: motor weakness Skin: normal pigmentation, warm/dry Gabriel Jerry DO Dec 08, 2018 14:24
--- NOTE | 2018-12-08 15:42 | Cardiac Electrophysiology PN ---
Assessment/Plan Assessment/Plan 1. HTN, Stable off meds 2. DVT on Heparin and Coumadin per RX. INR still 1.3 3. Right proximal tibia fracture. Non surgical per Dr Gross Subjective Subjective Pleasantly confused. Objective Last 24 Hour Vital Signs Date Time Temp Pulse Resp B/P (MAP) Pulse Ox O2 Delivery O2 Flow Rate FiO2 12/08/18 12:00 97.1 66 18 109/60 (76) 95 12/08/18 09:00 Room Air 12/08/18 08:00 97.9 70 18 120/71 (87) 97 12/08/18 04:00 97.6 69 20 136/56 (82) 98 12/08/18 00:00 98.8 76 20 122/70 (87) 97 12/07/18 21:00 Room Air 12/07/18 20:00 98.2 85 20 104/74 (84) 95 12/07/18 16:00 98.0 86 18 103/67 (79) 94 Intake and Output 12/07/18 12/08/18 19:00 07:00 Intake Total 502.707 ml 863.392 ml Balance 502.707 ml 863.392 ml Intake Oral 300 ml 640 ml IV Total 202.707 ml 223.392 ml # Voids 3 4 # Bowel Movements 1 2 Laboratory Tests Test 12/08/18 04:07 White Blood Count 6.0 K/UL (4.8-10.8) Red Blood Count 4.01 M/UL (4.20-5.40) L Hemoglobin 12.4 G/DL (12.0-16.0) Hematocrit 36.7 % (37.0-47.0) L Mean Corpuscular Volume 91 FL (80-99) Mean Corpuscular Hemoglobin 31.0 PG (27.0-31.0) Mean Corpuscular Hemoglobin Concent 33.9 G/DL (32.0-36.0) Red Cell Distribution Width 13.3 % (11.6-14.8) Platelet Count 322 K/UL (150-450) Mean Platelet Volume 5.2 FL (6.5-10.1) L Neutrophils (%) (Auto) 55.6 % (45.0-75.0) Lymphocytes (%) (Auto) 33.9 % (20.0-45.0) Monocytes (%) (Auto) 7.8 % (1.0-10.0) Eosinophils (%) (Auto) 1.9 % (0.0-3.0) Basophils (%) (Auto) 0.7 % (0.0-2.0) Prothrombin Time 14.0 SEC (9.30-11.50) H Prothromb Time International Ratio 1.3 (0.9-1.1) H Activated Partial Thromboplast Time 73 SEC (23-33) H Sodium Level 138 MMOL/L (136-145) Potassium Level 4.0 MMOL/L (3.5-5.1) Chloride Level 104 MMOL/L (98-107) Carbon Dioxide Level 25 MMOL/L (21-32) Anion Gap 9 mmol/L (5-15) Blood Urea Nitrogen 20 mg/dL (7-18) H Creatinine 0.8 MG/DL (0.55-1.30) Estimat Glomerular Filtration Rate mL/min (>60) Glucose Level 92 MG/DL (74-106) Calcium Level 9.2 MG/DL (8.5-10.1) Objective HEENT: No JVD Cardiovascular: normal peripheral pulses, normal rate, regular rhythm Respiratory/Chest: chest wall non-tender, lungs clear, normal breath sounds Abdomen: normal bowel sounds, non tender, soft Extremities: Ankle in immobilizer Edema: no edema Neurologic: motor weakness Timur Valencia MD Dec 08, 2018 15:42
[2018-12-08 16:00] VITALS: BP 136/71
--- NOTE | 2018-12-08 16:03 | General Progress Note ---
Assessment/Plan Assessment/Plan # DVT (deep venous thrombosis) of the lower vein popliteal and femoral likely due to megace --> have started on heparin gtt --> monitor for sob or development of pe --> okay to trasnsition to coumadin inr goal 2-3 --> dosing per pharmacy --> outpatient coumadin management # Coagulopathy is due to coumadin use --> have started on coumadin inr goal 2-3 --> dose adjustment is per pharmacy # Anemia of chronic disease --> w/u as outpatient # Alzheimer's dementia --> donepezil and neuro f/u The timing of this note does not necessarily reflect the time of the patient was seen. Greatly appreciate consultation! Subjective HEENT: Denies: no symptoms, eye pain, blurred vision, tearing, double vision, ear pain, ear discharge, nose pain, nose congestion, throat pain, throat swelling, mouth pain, mouth swelling, other Cardiovascular: Denies: no symptoms, chest pain, edema, irregular heart rate, lightheadedness, palpitations, syncope, other Gastrointestinal/Abdominal: Denies: no symptoms, abdomen distended, abdominal pain, black stools, tarry stools, blood in stool, constipated, diarrhea, difficulty swallowing, nausea, poor appetite, poor fluid intake, rectal bleeding , vomiting, other Genitourinary: Denies: no symptoms, burning, discharge, frequency, flank pain, hematuria, incontinence, pain, urgency, other Neurologic/Psychiatric: Denies: no symptoms, anxiety, depressed, emotional problems, headache, numbness, paresthesia, pre-existing deficit, seizure, tingling, tremors, weakness, other Endocrine: Denies: no symptoms, excessive sweating, flushing, intolerance to cold, intolerance to heat, increased hunger, increased thirst, increased urine, unexplained weight gain, unexplained weight loss, other Allergies: Coded Allergies: No Known Allergies (Unverified , 12/01/18) Subjective 12/03: awake, comfortable, no events reported. 12/04: no events, on coumadin, feeling better 12/06: seen by bedside, awake, comfortable, no events 12/07: no fevers or chills noted, on hep gtt 12/08: awake, comfortable, no events Objective Last 24 Hour Vital Signs Date Time Temp Pulse Resp B/P (MAP) Pulse Ox O2 Delivery O2 Flow Rate FiO2 12/08/18 12:00 97.1 66 18 109/60 (76) 95 12/08/18 09:00 Room Air 12/08/18 08:00 97.9 70 18 120/71 (87) 97 12/08/18 04:00 97.6 69 20 136/56 (82) 98 12/08/18 00:00 98.8 76 20 122/70 (87) 97 12/07/18 21:00 Room Air 12/07/18 20:00 98.2 85 20 104/74 (84) 95 Intake and Output 12/07/18 12/08/18 19:00 07:00 Intake Total 502.707 ml 863.392 ml Balance 502.707 ml 863.392 ml Intake Oral 300 ml 640 ml IV Total 202.707 ml 223.392 ml # Voids 3 4 # Bowel Movements 1 2 Laboratory Tests 12/08/18 04:07: White Blood Count 6.0, Red Blood Count 4.01L, Hemoglobin 12.4, Hematocrit 36.7L , Mean Corpuscular Volume 91, Mean Corpuscular Hemoglobin 31.0, Mean Corpuscular Hemoglobin Concent 33.9, Red Cell Distribution Width 13.3, Platelet Count 322, Mean Platelet Volume 5.2L, Neutrophils (%) (Auto) 55.6, Lymphocytes ( %) (Auto) 33.9, Monocytes (%) (Auto) 7.8, Eosinophils (%) (Auto) 1.9, Basophils (%) (Auto) 0.7, Prothrombin Time 14.0H, Prothromb Time International Ratio 1.3H , Activated Partial Thromboplast Time 73H, Sodium Level 138, Potassium Level 4.0 , Chloride Level 104, Carbon Dioxide Level 25, Anion Gap 9, Blood Urea Nitrogen 20H, Creatinine 0.8, Estimat Glomerular Filtration Rate , Glucose Level 92, Calcium Level 9.2 Height (Feet): 5 Height (Inches): 4.00 Weight (Pounds): 113 Objective Physical Exam General Appearance: WD/WN, no apparent distress Lines, tubes and drains: peripheral, central line HEENT: normocephalic, atraumatic Neck: non-tender, normal alignment Respiratory/Chest: chest wall non-tender, lungs clear, normal breath sounds Cardiovascular/Chest: normal rate, no JVD Abdomen: non tender, soft Genitourinary/Rectal: normal genital exam Extremities: nt Romain Max MD Dec 08, 2018 16:03
[2018-12-08] MEDS ORDERED: Warfarin Sodium 3mg ORAL ONE (17:00)
--- NOTE | 2018-12-08 19:30 | NUR ---
HAND-OFF: Report given to Frankie YA. Patient is stable.
--- NOTE | 2018-12-08 19:40 | NUR ---
NURSE NOTES: Report taken from FELTON Morel. Patient is awake and A&Ox2, follows simple commands. IV site c/d/i and running Heparin at 18 units/kg/hr, continue to monitor and follow up with pharmacy. Rt calf warm, edema present, measuring 24cm, in leg immobilizer. Lt calf measure 21 cm. Sacral redness present, barrier cream placed, continue to monitor. Bed in lowest position, call light within reach.
[2018-12-08 20:00] VITALS: BP 133/58
[2018-12-09] VITALS: BP 131/54
[2018-12-09] MEDS: Heparin 25,000u/D5W 500ml 500 ML IV SCH ×2 (02:55→05:50)
[2018-12-09 04:00] VITALS: BP 109/59
[2018-12-09 04:10] LABS: BASOPHILS % (AUTO) 1.1 % (0.0-2.0); EOSINOPHILS % (AUTO) 1.9 % (0.0-3.0); HEMATOCRIT 38.6 % (37.0-47.0); HEMOGLOBIN 12.7 G/DL (12.0-16.0); LYMPHOCYTES % (AUTO) 33.8 % (20.0-45.0); MEAN CORPUSCULAR VOLUME 93 FL (80-99); MONOCYTES % (AUTO) 9.3 % (1.0-10.0); NEUTROPHILS % (AUTO) 53.9 % (45.0-75.0); PLATELET COUNT 305 K/UL (150-450); RED BLOOD COUNT 4.15 M/UL (4.20-5.40); RED CELL DISTRIBUTION WIDTH 13.4 % (11.6-14.8); WHITE BLOOD COUNT 4.9 K/UL (4.8-10.8)
[2018-12-09 04:20] LABS: ANION GAP 12 mmol/L (5-15); BLOOD UREA NITROGEN 18 mg/dL (7-18); CALCIUM 9.4 MG/DL (8.5-10.1); CARBON DIOXIDE 24 MMOL/L (21-32); CHLORIDE 103 MMOL/L (98-107); CREATININE 0.7 MG/DL (0.55-1.30); POTASSIUM 3.8 MMOL/L (3.5-5.1); SODIUM 139 MMOL/L (136-145)
[2018-12-09 04:26] LABS: INR 1.8 (0.9-1.1)
--- NOTE | 2018-12-09 05:43 | NUR ---
NURSE NOTES: PTT results posted. Pharmacist called, per protocol drop Heparin drip rate to 16 units/kg/hr. New lab ordered at 1200 on 12/09.
--- NOTE | 2018-12-09 07:15 | NUR ---
NURSE NOTES: Patient is awake and stable. Patient does not complain of pain and breathing is even and labored. Patient is calm and comfortable, no facial grimacing or moaning noted. Patient encouraged to use call light for assistance. Skin is clean, dry, and intact. Patient is running heparin drip as ordered. Patient is in bed with call light within reach and all safety measures provided, will continue to monitor.
--- NOTE | 2018-12-09 07:20 | NUR ---
HAND-OFF: Report given to FELTON Morel. Patient asleep, VS stable.
[2018-12-09 08:00] VITALS: BP 173/84
[2018-12-09] MEDS: Donepezil 10mg tab ORAL SCH (09:19)
--- NOTE | 2018-12-09 09:50 | NUR ---
CASE MANAGEMENT:REVIEW 12/09/18 SI: ACUTE DVT 97.3 63 17 173/84 99% ON RA PT+18.4 INR-1.8 PTT+100 IS: HEPARIN GTT 16U/KG/HR COUMADIN 4MG PO X1 ARICEPT PO QD : MED/SURG STATUS 3 [facility]
--- NOTE | 2018-12-09 11:28 | Pulmonology Progress Note ---
Assessment/Plan Problems: (1) DVT (deep venous thrombosis) (2) Alzheimer's dementia Assessment/Plan awake, confused INR is 1. 8 IV heparin on Coumadin by pharmacy f/u H/h jf gomez, probably the cause of dvt symptomatic treatment eating well Subjective ROS Limited/Unobtainable: No Constitutional: Reports: no symptoms HEENT: Repors: no symptoms Respiratory: Reports: no symptoms Allergies: Coded Allergies: No Known Allergies (Unverified , 12/01/18) Objective Last 24 Hour Vital Signs Date Time Temp Pulse Resp B/P (MAP) Pulse Ox O2 Delivery O2 Flow Rate FiO2 12/09/18 09:00 Room Air 12/09/18 08:00 97.3 63 17 173/84 (113) 99 12/09/18 04:00 98.1 71 17 109/59 (76) 95 12/09/18 00:00 98.2 72 17 131/54 (79) 94 12/08/18 21:00 Room Air 12/08/18 20:00 97.7 72 17 133/58 (83) 94 12/08/18 16:00 97.3 86 20 136/71 (92) 95 12/08/18 12:00 97.1 66 18 109/60 (76) 95 Intake and Output 12/08/18 12/09/18 18:59 06:59 Intake Total 498.616 ml Balance 498.616 ml Intake Oral 480 ml IV Total 18.616 ml # Voids 3 3 # Bowel Movements 1 1 Objective General Appearance: cachectic HEENT: normocephalic, atraumatic Respiratory/Chest: chest wall non-tender, lungs clear Breasts: no masses Cardiovascular: normal peripheral pulses Abdomen: normal bowel sounds, soft, non tender Extremities: no cyanosis, no clubbing Laboratory Tests 12/09/18 04:00: White Blood Count 4.9, Red Blood Count 4.15L, Hemoglobin 12.7, Hematocrit 38.6, Mean Corpuscular Volume 93, Mean Corpuscular Hemoglobin 30.5, Mean Corpuscular Hemoglobin Concent 32.8, Red Cell Distribution Width 13.4, Platelet Count 305, Mean Platelet Volume 5.1L, Neutrophils (%) (Auto) 53.9, Lymphocytes (%) (Auto) 33.8, Monocytes (%) (Auto) 9.3, Eosinophils (%) (Auto) 1.9, Basophils (%) (Auto ) 1.1, Sodium Level 139, Potassium Level 3.8, Chloride Level 103, Carbon Dioxide Level 24, Anion Gap 12, Blood Urea Nitrogen 18, Creatinine 0.7, Estimat Glomerular Filtration Rate , Glucose Level 95, Calcium Level 9.4 12/09/18 04:50: Prothrombin Time 18.4H, Prothromb Time International Ratio 1.8H, Activated Partial Thromboplast Time 100H Current Medications Medications (Trade) Dose Ordered Sig/Evita Route PRN Reason Start Time Stop Time Status Last Admin Dose Admin Acetaminophen (Tylenol) 650 mg Q4H PRN ORAL fever (temp>100.5F) 12/01/18 15:45 12/31/18 15:44 Al Hydroxide/Mg Hydroxide (Mylanta II) 30 ml Q6H PRN ORAL dyspepsia 12/01/18 15:45 12/31/18 15:44 Dextrose (Dextrose 50%) 25 ml Q30M PRN IV hypoglycemia 12/01/18 16:00 12/31/18 15:46 Dextrose (Dextrose 50%) 50 ml Q30M PRN IV hypoglycemia 12/01/18 16:00 12/31/18 15:59 Donepezil HCl (Aricept) 10 mg DAILY ORAL 12/02/18 09:00 01/01/19 08:59 12/09/18 09:19 Heparin Sodium/ Dextrose 500 ml @ 16.547 mls/ hr ADJUST PER PROTOCOL IV 12/09/18 05:45 01/08/19 05:44 12/09/18 05:50 Lorazepam (Ativan 2mg/ml 1ml) 0.5 mg Q4H PRN IV For Anxiety 12/07/18 15:15 12/12/18 15:44 12/08/18 17:18 Morphine Sulfate (Morphine Sulfate) 1 mg Q4H PRN IVP PAIN 4-10 12/07/18 15:45 12/12/18 15:44 Ondansetron HCl (Zofran) 4 mg Q6H PRN IVP Nausea & Vomiting 12/01/18 15:45 12/31/18 15:44 Polyethylene Glycol (Miralax) 17 gm HSPRN PRN ORAL Constipation 12/01/18 15:45 4/11/19 15:44 Warfarin Sodium (Coumadin per pharmacy) 1 ea DAILY PRN MISC Per rx protocol 12/03/18 12:15 01/02/19 12:14 Warfarin Sodium (Coumadin) 4 mg COUMADIN ONCE PO 12/09/18 17:00 12/09/18 17:01 Zolpidem Tartrate (Ambien) 5 mg HSPRN PRN ORAL Insomnia 12/07/18 21:00 12/12/18 20:59 Freddy Antunez MD Dec 09, 2018 11:28
--- NOTE | 2018-12-09 11:51 | NUR ---
RD ASSESSMENT & RECOMMENDATIONS SEE CARE ACTIVITY FOR COMPLETE ASSESSMENT DAILY ESTIMATED NEEDS: Needs based on advancing age/ 49kg 25-30 kcals/kg 1215-2688 total kcals 1-1.3 g protein/kg 49-60 g total protein 25-30 mL/kg 5618-3993 total fluid mLs NUTRITION DIAGNOSIS:Self feeding difficulty R/T decreased cognitive fxn as evidenced by pt is dependent at all meals. CURRENT DIET:REGULAR, SOFT PO DIET RECOMMENDATIONS: REGULAR, texture as tolerated ADDITIONAL RECOMMENDATIONS: * CALIBRATED bedscale wt for accurate CBW -> Mattress w/ added SPR mattress + pump, SCDs * Monitor PO intake closely- variable at this time * Ensure Enlive x 1 w/ variable PO intake
[2018-12-09 12:00] VITALS: BP 117/76
--- NOTE | 2018-12-09 12:19 | General Progress Note ---
Assessment/Plan Assessment/Plan # DVT (deep venous thrombosis) of the lower vein popliteal and femoral likely due to megace --> have started on heparin gtt --> monitor for sob or development of pe --> okay to trasnsition to coumadin inr goal 2-3 --> dosing per pharmacy --> outpatient coumadin management # Coagulopathy is due to coumadin use --> have started on coumadin inr goal 2-3 --> dose adjustment is per pharmacy # Anemia of chronic disease --> w/u as outpatient # Alzheimer's dementia --> donepezil and neuro f/u The timing of this note does not necessarily reflect the time of the patient was seen. Greatly appreciate consultation! Subjective Allergies: Coded Allergies: No Known Allergies (Unverified , 12/01/18) Subjective 12/03: awake, comfortable, no events reported. 12/04: no events, on coumadin, feeling better 12/06: seen by bedside, awake, comfortable, no events 12/07: no fevers or chills noted, on hep gtt 12/08: awake, comfortable, no events 12/09: Pt is awake, comfortable no acute distress reported. Objective Last 24 Hour Vital Signs Date Time Temp Pulse Resp B/P (MAP) Pulse Ox O2 Delivery O2 Flow Rate FiO2 12/09/18 09:00 Room Air 12/09/18 08:00 97.3 63 17 173/84 (113) 99 12/09/18 04:00 98.1 71 17 109/59 (76) 95 12/09/18 00:00 98.2 72 17 131/54 (79) 94 12/08/18 21:00 Room Air 12/08/18 20:00 97.7 72 17 133/58 (83) 94 12/08/18 16:00 97.3 86 20 136/71 (92) 95 Intake and Output 12/08/18 12/09/18 18:59 06:59 Intake Total 498.616 ml Balance 498.616 ml Intake Oral 480 ml IV Total 18.616 ml # Voids 3 3 # Bowel Movements 1 1 Laboratory Tests 12/09/18 04:00: White Blood Count 4.9, Red Blood Count 4.15L, Hemoglobin 12.7, Hematocrit 38.6, Mean Corpuscular Volume 93, Mean Corpuscular Hemoglobin 30.5, Mean Corpuscular Hemoglobin Concent 32.8, Red Cell Distribution Width 13.4, Platelet Count 305, Mean Platelet Volume 5.1L, Neutrophils (%) (Auto) 53.9, Lymphocytes (%) (Auto) 33.8, Monocytes (%) (Auto) 9.3, Eosinophils (%) (Auto) 1.9, Basophils (%) (Auto ) 1.1, Sodium Level 139, Potassium Level 3.8, Chloride Level 103, Carbon Dioxide Level 24, Anion Gap 12, Blood Urea Nitrogen 18, Creatinine 0.7, Estimat Glomerular Filtration Rate , Glucose Level 95, Calcium Level 9.4 12/09/18 04:50: Prothrombin Time 18.4H, Prothromb Time International Ratio 1.8H, Activated Partial Thromboplast Time 100H Height (Feet): 5 Height (Inches): 4.00 Weight (Pounds): 108 Objective Physical Exam General Appearance: WD/WN, no apparent distress Lines, tubes and drains: peripheral, central line HEENT: normocephalic, atraumatic Neck: non-tender, normal alignment Respiratory/Chest: chest wall non-tender, lungs clear, normal breath sounds Cardiovascular/Chest: normal rate, no JVD Abdomen: non tender, soft Genitourinary/Rectal: normal genital exam Extremities: nt Romain Max MD Dec 09, 2018 12:19
--- NOTE | 2018-12-09 14:30 | NUR ---
NURSE NOTES: Patient discharged home as ordered. Patient is AOx4 and stable. Skin is clean, dry, and intact. Surgical site is clean, dry, intact, dressing changed today. Thorough discharge instructions given, patient and family verbalized understanding. Patient instructed to follow up with MD as discussed previously with Dr. Gurrola. Denies pain or SOB. Patient has all belongings. IV removed without complications. Patient was assisted downstairs by RN. Addendum: 12/09/18 at 1515 by SUMANTH TOTH RN ERROR, WRONG PATIENT.
--- NOTE | 2018-12-09 14:46 | General Progress Note ---
Assessment/Plan Problem List: (1) Altered mental status ICD Codes: R41.82 - Altered mental status, unspecified SNOMED: 347580886 (2) Alzheimer's dementia ICD Codes: G30.9 - Alzheimer's disease, unspecified; F02.80 - Dementia in other diseases classified elsewhere without behavioral disturbance SNOMED: 23808658 (3) DVT (deep venous thrombosis) ICD Codes: I82.409 - Acute embolism and thrombosis of unspecified deep veins of unspecified lower extremity SNOMED: 448817992 Status: stable, progressing Assessment/Plan psyc f/u heme f/u cbc bmp dc if clear Subjective Constitutional: Reports: weakness Allergies: Coded Allergies: No Known Allergies (Unverified , 12/01/18) All Systems: reviewed and negative except above Subjective sleepy calm Objective Last 24 Hour Vital Signs Date Time Temp Pulse Resp B/P (MAP) Pulse Ox O2 Delivery O2 Flow Rate FiO2 12/09/18 09:00 Room Air 12/09/18 08:00 97.3 63 17 173/84 (113) 99 12/09/18 04:00 98.1 71 17 109/59 (76) 95 12/09/18 00:00 98.2 72 17 131/54 (79) 94 12/08/18 21:00 Room Air 12/08/18 20:00 97.7 72 17 133/58 (83) 94 12/08/18 16:00 97.3 86 20 136/71 (92) 95 Intake and Output 12/08/18 12/09/18 19:00 07:00 Intake Total 498.616 ml Balance 498.616 ml Intake Oral 480 ml IV Total 18.616 ml # Voids 3 3 # Bowel Movements 1 1 Laboratory Tests 12/09/18 04:00: White Blood Count 4.9, Red Blood Count 4.15L, Hemoglobin 12.7, Hematocrit 38.6, Mean Corpuscular Volume 93, Mean Corpuscular Hemoglobin 30.5, Mean Corpuscular Hemoglobin Concent 32.8, Red Cell Distribution Width 13.4, Platelet Count 305, Mean Platelet Volume 5.1L, Neutrophils (%) (Auto) 53.9, Lymphocytes (%) (Auto) 33.8, Monocytes (%) (Auto) 9.3, Eosinophils (%) (Auto) 1.9, Basophils (%) (Auto ) 1.1, Sodium Level 139, Potassium Level 3.8, Chloride Level 103, Carbon Dioxide Level 24, Anion Gap 12, Blood Urea Nitrogen 18, Creatinine 0.7, Estimat Glomerular Filtration Rate , Glucose Level 95, Calcium Level 9.4 12/09/18 04:50: Prothrombin Time 18.4H, Prothromb Time International Ratio 1.8H, Activated Partial Thromboplast Time 100H 12/09/18 12:30: Activated Partial Thromboplast Time 65H Height (Feet): 5 Height (Inches): 4.00 Weight (Pounds): 108 General Appearance: lethargic EENT: normal ENT inspection Neck: normal alignment Cardiovascular: normal peripheral pulses, normal rate, regular rhythm Respiratory/Chest: chest wall non-tender, lungs clear, normal breath sounds Abdomen: normal bowel sounds, non tender, soft Extremities: normal inspection Edema: no edema noted Arm (L), no edema noted Arm (R), no edema noted Leg (L), no edema noted Leg (R), no edema noted Pedal (L), no edema noted Pedal (R), no edema noted Generalized Neurologic: motor weakness Skin: normal pigmentation, warm/dry Gabriel Jerry DO Dec 09, 2018 14:46
--- NOTE | 2018-12-09 15:46 | Cardiac Electrophysiology PN ---
Assessment/Plan Assessment/Plan 1. HTN, Stable off meds 2. DVT on Heparin and Coumadin per RX. INR 1.8 3. Right proximal tibia fracture. Non surgical per Dr Gross Subjective Subjective Pleasantly confused.No change. Objective Last 24 Hour Vital Signs Date Time Temp Pulse Resp B/P (MAP) Pulse Ox O2 Delivery O2 Flow Rate FiO2 12/09/18 12:00 97.0 73 19 117/76 (90) 93 12/09/18 09:00 Room Air 12/09/18 08:00 97.3 63 17 173/84 (113) 99 12/09/18 04:00 98.1 71 17 109/59 (76) 95 12/09/18 00:00 98.2 72 17 131/54 (79) 94 12/08/18 21:00 Room Air 12/08/18 20:00 97.7 72 17 133/58 (83) 94 12/08/18 16:00 97.3 86 20 136/71 (92) 95 Intake and Output 12/08/18 12/09/18 19:00 07:00 Intake Total 498.616 ml Balance 498.616 ml Intake Oral 480 ml IV Total 18.616 ml # Voids 3 3 # Bowel Movements 1 1 Laboratory Tests Test 12/09/18 04:00 12/09/18 04:50 12/09/18 12:30 White Blood Count 4.9 K/UL (4.8-10.8) Red Blood Count 4.15 M/UL (4.20-5.40) L Hemoglobin 12.7 G/DL (12.0-16.0) Hematocrit 38.6 % (37.0-47.0) Mean Corpuscular Volume 93 FL (80-99) Mean Corpuscular Hemoglobin 30.5 PG (27.0-31.0) Mean Corpuscular Hemoglobin Concent 32.8 G/DL (32.0-36.0) Red Cell Distribution Width 13.4 % (11.6-14.8) Platelet Count 305 K/UL (150-450) Mean Platelet Volume 5.1 FL (6.5-10.1) L Neutrophils (%) (Auto) 53.9 % (45.0-75.0) Lymphocytes (%) (Auto) 33.8 % (20.0-45.0) Monocytes (%) (Auto) 9.3 % (1.0-10.0) Eosinophils (%) (Auto) 1.9 % (0.0-3.0) Basophils (%) (Auto) 1.1 % (0.0-2.0) Sodium Level 139 MMOL/L (136-145) Potassium Level 3.8 MMOL/L (3.5-5.1) Chloride Level 103 MMOL/L (98-107) Carbon Dioxide Level 24 MMOL/L (21-32) Anion Gap 12 mmol/L (5-15) Blood Urea Nitrogen 18 mg/dL (7-18) Creatinine 0.7 MG/DL (0.55-1.30) Estimat Glomerular Filtration Rate mL/min (>60) Glucose Level 95 MG/DL (74-106) Calcium Level 9.4 MG/DL (8.5-10.1) Prothrombin Time 18.4 SEC (9.30-11.50) H Prothromb Time International Ratio 1.8 (0.9-1.1) H Activated Partial Thromboplast Time 100 SEC (23-33) H 65 SEC (23-33) H Objective HEENT: No JVD Cardiovascular: Normal rate, regular rhythm Respiratory/Chest: chest wall non-tender, lungs clear, normal breath sounds Abdomen: normal bowel sounds, non tender, soft Extremities: no edema Timur Valencia MD Dec 09, 2018 15:46
[2018-12-09 16:00] VITALS: BP 129/78
[2018-12-09] MEDS ORDERED: Warfarin Sodium 4mg PO ONE (17:00)
--- NOTE | 2018-12-09 19:30 | NUR ---
HAND-OFF: Report given to Frankie YA. patient is stable.
--- NOTE | 2018-12-09 19:31 | NUR ---
NURSE NOTES: Report taken from FELTON Morel. Patient awake and in bed, A&Ox4, responds to name. Patient seemed slightly agitated until RN talked to her. IV site c/d/i and patent, current Heparin drip rate 16 units/kg/hr. Rt calf 24cm, non-pitting edema, Lt calf 22cm, continue to monitor. Monitor for s/s of bleeding through shift. Bed in lowest position, call light within reach.
[2018-12-09 20:00] VITALS: BP 125/79
[2018-12-10] VITALS (7 sets, daily range): BP systolic 105–146; BP diastolic 56–79
[2018-12-10 04:11] LABS: BASOPHILS % (AUTO) 0.9 % (0.0-2.0); EOSINOPHILS % (AUTO) 0.5 % (0.0-3.0); HEMATOCRIT 37.9 % (37.0-47.0); HEMOGLOBIN 12.9 G/DL (12.0-16.0); LYMPHOCYTES % (AUTO) 25.3 % (20.0-45.0); MEAN CORPUSCULAR VOLUME 91 FL (80-99); MONOCYTES % (AUTO) 7.8 % (1.0-10.0); NEUTROPHILS % (AUTO) 65.5 % (45.0-75.0); PLATELET COUNT 369 K/UL (150-450); RED BLOOD COUNT 4.15 M/UL (4.20-5.40); RED CELL DISTRIBUTION WIDTH 12.8 % (11.6-14.8)
[2018-12-10 04:24] LABS: ANION GAP 13 mmol/L (5-15); BLOOD UREA NITROGEN 19 mg/dL (7-18); CALCIUM 9.7 MG/DL (8.5-10.1); CARBON DIOXIDE 24 MMOL/L (21-32); CHLORIDE 101 MMOL/L (98-107); CREATININE 0.7 MG/DL (0.55-1.30); POTASSIUM 4.2 MMOL/L (3.5-5.1); SODIUM 138 MMOL/L (136-145)
[2018-12-10 04:34] LABS: INR 2.1 (0.9-1.1)
[2018-12-10] MEDS: Heparin 25,000u/D5W 500ml 500 ML IV SCH (05:47)
--- NOTE | 2018-12-10 06:30 | NUR ---
NURSE NOTES: Pharmacy called, no change in Heparin drip rate, 16 units/kg/hr per protocol
--- NOTE | 2018-12-10 07:15 | NUR ---
NURSE NOTES: Report received from outgoing RN, rounds made. Patient sleeping. Side rails up x4, call light in reach. LFA IV wrapped with kerlix, infusing Heparin at 16.54 ml/hr, without difficulty. No s/s of active bleeding. RLE with brace. RLE skin warm to touch, pedal pulses palpable, withdraws to pain, skin remains intact. No SOB on RA. SPR mattress in place. Bed in lowest position, will continue to monitor.
--- NOTE | 2018-12-10 07:16 | NUR ---
HAND-OFF: Report given to FELTON Banerjee. Patient asleep and VS stable.
[2018-12-10] MEDS: Donepezil 10mg tab ORAL SCH (09:22)
--- NOTE | 2018-12-10 10:48 | NUR ---
*-* INSURANCE *-* ALL CLINICALS HAVE BEEN FAXED TO: [facility] GORDON:JULIO CESAR F:[phone]
[2018-12-10] MEDS ORDERED: COUMADIN3 MG ORAL (12:02)
--- NOTE | 2018-12-10 12:35 | NUR ---
DISCHARGE PLANNING DISCHARGE ORDER NOTED [employer] FAXED CLINICALS TO [facility] T: [phone] F: [phone] Addendum: 12/10/18 at 1243 by NELA DIOP LVN [facility] AT [facility] WAITING FOR RETURN CALL Addendum: 12/10/18 at 1604 by NELA DIOP LVN LVN [facility] GAVE THIS PATIENT'S BED AWAY REFERRED PATIENT TO [facility] 1) [facility] 2) [facility]
--- NOTE | 2018-12-10 14:46 | General Progress Note ---
Assessment/Plan Problem List: (1) Altered mental status ICD Codes: R41.82 - Altered mental status, unspecified SNOMED: 089372401 (2) Alzheimer's dementia ICD Codes: G30.9 - Alzheimer's disease, unspecified; F02.80 - Dementia in other diseases classified elsewhere without behavioral disturbance SNOMED: 47047405 (3) DVT (deep venous thrombosis) ICD Codes: I82.409 - Acute embolism and thrombosis of unspecified deep veins of unspecified lower extremity SNOMED: 549663464 Status: stable, progressing Assessment/Plan psyc f/u heme f/u cbc bmp dc if clear Subjective Constitutional: Reports: weakness Allergies: Coded Allergies: No Known Allergies (Unverified , 12/01/18) All Systems: reviewed and negative except above Subjective sleepy calm Objective Last 24 Hour Vital Signs Date Time Temp Pulse Resp B/P (MAP) Pulse Ox O2 Delivery O2 Flow Rate FiO2 12/10/18 09:00 Room Air 12/10/18 08:00 97.9 65 20 112/72 (85) 99 12/10/18 04:00 98.6 81 24 123/79 (94) 94 12/10/18 00:00 99.0 79 20 146/74 (98) 95 12/09/18 21:00 Room Air 12/09/18 20:00 99.4 83 20 125/79 (94) 95 12/09/18 16:00 97.9 95 19 129/78 (95) 97 Intake and Output 12/09/18 12/10/18 18:59 06:59 # Voids 3 2 # Bowel Movements 1 Laboratory Tests 12/10/18 04:02: White Blood Count 7.0, Red Blood Count 4.15L, Hemoglobin 12.9, Hematocrit 37.9, Mean Corpuscular Volume 91, Mean Corpuscular Hemoglobin 31.0, Mean Corpuscular Hemoglobin Concent 33.9, Red Cell Distribution Width 12.8, Platelet Count 369, Mean Platelet Volume 4.6L, Neutrophils (%) (Auto) 65.5, Lymphocytes (%) (Auto) 25.3, Monocytes (%) (Auto) 7.8, Eosinophils (%) (Auto) 0.5, Basophils (%) (Auto ) 0.9, Prothrombin Time 21.4H, Prothromb Time International Ratio 2.1H, Activated Partial Thromboplast Time 92H, Sodium Level 138, Potassium Level 4.2, Chloride Level 101, Carbon Dioxide Level 24, Anion Gap 13, Blood Urea Nitrogen 19H, Creatinine 0.7, Estimat Glomerular Filtration Rate , Glucose Level 105, Calcium Level 9.7 Height (Feet): 5 Height (Inches): 4.00 Weight (Pounds): 108 General Appearance: lethargic EENT: normal ENT inspection Neck: normal alignment Cardiovascular: normal peripheral pulses, normal rate, regular rhythm Respiratory/Chest: chest wall non-tender, lungs clear, normal breath sounds Abdomen: normal bowel sounds, non tender, soft Extremities: normal inspection Edema: no edema noted Arm (L), no edema noted Arm (R), no edema noted Leg (L), no edema noted Leg (R), no edema noted Pedal (L), no edema noted Pedal (R), no edema noted Generalized Neurologic: motor weakness Skin: normal pigmentation, warm/dry Gabriel Jerry DO Dec 10, 2018 14:46
--- NOTE | 2018-12-10 15:15 | NUR ---
NURSE NOTES Notified Dr. Antunez regarding new Warfarin order with current Heparin drip, orders to discontinue Heparin drip, see orders. Heparin discontinued at 1515.
--- NOTE | 2018-12-10 15:25 | General Progress Note ---
Assessment/Plan Assessment/Plan # DVT (deep venous thrombosis) of the lower vein popliteal and femoral likely due to megace --> have started on heparin gtt --> monitor for sob or development of pe --> okay to trasnsition to coumadin inr goal 2-3 --> dosing per pharmacy --> outpatient coumadin management ==> appreciate cards recs # Coagulopathy is due to coumadin use --> have started on coumadin inr goal 2-3 --> dose adjustment is per pharmacy # Anemia of chronic disease --> w/u as outpatient # Alzheimer's dementia --> donepezil and neuro f/u The timing of this note does not necessarily reflect the time of the patient was seen. Greatly appreciate consultation! Subjective Constitutional: Denies: no symptoms, chills, diaphoresis, fever, malaise, weakness, other HEENT: Denies: no symptoms, eye pain, blurred vision, tearing, double vision, ear pain, ear discharge, nose pain, nose congestion, throat pain, throat swelling, mouth pain, mouth swelling, other Cardiovascular: Denies: no symptoms, chest pain, edema, irregular heart rate, lightheadedness, palpitations, syncope, other Respiratory: Denies: no symptoms, cough, orthopnea, shortness of breath, SOB with excertion, SOB at rest, sputum, stridor, wheezing, other Gastrointestinal/Abdominal: Denies: no symptoms, abdomen distended, abdominal pain, black stools, tarry stools, blood in stool, constipated, diarrhea, difficulty swallowing, nausea, poor appetite, poor fluid intake, rectal bleeding , vomiting, other Genitourinary: Denies: no symptoms, burning, discharge, frequency, flank pain, hematuria, incontinence, pain, urgency, other Neurologic/Psychiatric: Denies: no symptoms, anxiety, depressed, emotional problems, headache, numbness, paresthesia, pre-existing deficit, seizure, tingling, tremors, weakness, other Endocrine: Denies: no symptoms, excessive sweating, flushing, intolerance to cold, intolerance to heat, increased hunger, increased thirst, increased urine, unexplained weight gain, unexplained weight loss, other Allergies: Coded Allergies: No Known Allergies (Unverified , 12/01/18) Subjective 12/03: awake, comfortable, no events reported. 12/04: no events, on coumadin, feeling better 12/06: seen by bedside, awake, comfortable, no events 12/07: no fevers or chills noted, on hep gtt 12/08: awake, comfortable, no events 12/09: Pt is awake, comfortable no acute distress reported. Objective Last 24 Hour Vital Signs Date Time Temp Pulse Resp B/P (MAP) Pulse Ox O2 Delivery O2 Flow Rate FiO2 12/10/18 14:49 97.9 71 19 137/69 (91) 97 12/10/18 12:00 97.9 71 19 137/69 (91) 97 12/10/18 09:00 Room Air 12/10/18 08:00 97.9 65 20 112/72 (85) 99 12/10/18 04:00 98.6 81 24 123/79 (94) 94 12/10/18 00:00 99.0 79 20 146/74 (98) 95 12/09/18 21:00 Room Air 12/09/18 20:00 99.4 83 20 125/79 (94) 95 12/09/18 16:00 97.9 95 19 129/78 (95) 97 Intake and Output 12/09/18 12/10/18 18:59 06:59 # Voids 3 2 # Bowel Movements 1 Laboratory Tests 12/10/18 04:02: White Blood Count 7.0, Red Blood Count 4.15L, Hemoglobin 12.9, Hematocrit 37.9, Mean Corpuscular Volume 91, Mean Corpuscular Hemoglobin 31.0, Mean Corpuscular Hemoglobin Concent 33.9, Red Cell Distribution Width 12.8, Platelet Count 369, Mean Platelet Volume 4.6L, Neutrophils (%) (Auto) 65.5, Lymphocytes (%) (Auto) 25.3, Monocytes (%) (Auto) 7.8, Eosinophils (%) (Auto) 0.5, Basophils (%) (Auto ) 0.9, Prothrombin Time 21.4H, Prothromb Time International Ratio 2.1H, Activated Partial Thromboplast Time 92H, Sodium Level 138, Potassium Level 4.2, Chloride Level 101, Carbon Dioxide Level 24, Anion Gap 13, Blood Urea Nitrogen 19H, Creatinine 0.7, Estimat Glomerular Filtration Rate , Glucose Level 105, Calcium Level 9.7 Height (Feet): 5 Height (Inches): 4.00 Weight (Pounds): 108 Objective Physical Exam General Appearance: WD/WN, no apparent distress Lines, tubes and drains: peripheral, central line HEENT: normocephalic, atraumatic Neck: non-tender, normal alignment Respiratory/Chest: chest wall non-tender, lungs clear, normal breath sounds Cardiovascular/Chest: normal rate, no JVD Abdomen: non tender, soft Genitourinary/Rectal: normal genital exam Extremities: nt Romain Max MD Dec 10, 2018 15:25
--- NOTE | 2018-12-10 16:59 | Cardiac Electrophysiology PN ---
Assessment/Plan Assessment/Plan 1. HTN, Stable off meds 2. DVT on Heparin and Coumadin per RX. INR 2.1 3. Right proximal tibia fracture. Non surgical per Dr Gross Subjective Subjective Pleasantly confused. No change. Objective Last 24 Hour Vital Signs Date Time Temp Pulse Resp B/P (MAP) Pulse Ox O2 Delivery O2 Flow Rate FiO2 12/10/18 14:49 97.9 71 19 137/69 (91) 97 12/10/18 12:00 97.9 71 19 137/69 (91) 97 12/10/18 09:00 Room Air 12/10/18 08:00 97.9 65 20 112/72 (85) 99 12/10/18 04:00 98.6 81 24 123/79 (94) 94 12/10/18 00:00 99.0 79 20 146/74 (98) 95 12/09/18 21:00 Room Air 12/09/18 20:00 99.4 83 20 125/79 (94) 95 Intake and Output 12/09/18 12/10/18 18:59 06:59 # Voids 3 2 # Bowel Movements 1 Laboratory Tests Test 12/10/18 04:02 White Blood Count 7.0 K/UL (4.8-10.8) Red Blood Count 4.15 M/UL (4.20-5.40) L Hemoglobin 12.9 G/DL (12.0-16.0) Hematocrit 37.9 % (37.0-47.0) Mean Corpuscular Volume 91 FL (80-99) Mean Corpuscular Hemoglobin 31.0 PG (27.0-31.0) Mean Corpuscular Hemoglobin Concent 33.9 G/DL (32.0-36.0) Red Cell Distribution Width 12.8 % (11.6-14.8) Platelet Count 369 K/UL (150-450) Mean Platelet Volume 4.6 FL (6.5-10.1) L Neutrophils (%) (Auto) 65.5 % (45.0-75.0) Lymphocytes (%) (Auto) 25.3 % (20.0-45.0) Monocytes (%) (Auto) 7.8 % (1.0-10.0) Eosinophils (%) (Auto) 0.5 % (0.0-3.0) Basophils (%) (Auto) 0.9 % (0.0-2.0) Prothrombin Time 21.4 SEC (9.30-11.50) H Prothromb Time International Ratio 2.1 (0.9-1.1) H Activated Partial Thromboplast Time 92 SEC (23-33) H Sodium Level 138 MMOL/L (136-145) Potassium Level 4.2 MMOL/L (3.5-5.1) Chloride Level 101 MMOL/L (98-107) Carbon Dioxide Level 24 MMOL/L (21-32) Anion Gap 13 mmol/L (5-15) Blood Urea Nitrogen 19 mg/dL (7-18) H Creatinine 0.7 MG/DL (0.55-1.30) Estimat Glomerular Filtration Rate mL/min (>60) Glucose Level 105 MG/DL (74-106) Calcium Level 9.7 MG/DL (8.5-10.1) Objective HEENT: No JVD Cardiovascular: Normal rate, regular rhythm Respiratory/Chest: chest wall non-tender, lungs clear, normal breath sounds Abdomen: normal bowel sounds, non tender, soft Extremities: no edema Timur Valencia MD Dec 10, 2018 16:59
[2018-12-10] MEDS ORDERED: Warfarin Sodium 4mg PO ONE (17:00)
--- NOTE | 2018-12-10 19:30 | NUR ---
NURSE NOTES: RECEIVED PATIENT LYING IN BED, AWAKE, ALERT/ORIENTED TO PERSON, NO SIGNS AND SYMPTOMS OF ACUTE CARDIO RESPIRATORY DISTRESS/SHORTNESS OF BREATH, NON VERBAL DURING ASSESSMENT, RIGHT LOWER EXTREMITY SLIGHTLY SWOLLEN SECONDARY TO ACUTE DVT, ELEVATED EXTREMITY. NO REPORT OF GI DISCOMFORT, NO N/V/D. COMFORT CARE PROVIDED. SIDE RAILS UP X3/BED IN LOWEST POSITION FOR SAFETY. CALL LIGHT WITHIN REACH. NAD.
--- NOTE | 2018-12-10 20:13 | NUR ---
HAND-OFF: Report given to Miya YA.
--- NOTE | 2018-12-10 22:01 | NUR ---
NURSE NOTES: CALF CIRCUMFERENCE 22CM LEFT / 24CM RIGHT-
[2018-12-11] VITALS: BP 127/84
[2018-12-11 04:00] VITALS: BP 152/84
--- NOTE | 2018-12-11 07:18 | NUR ---
HAND-OFF: Report given to FELTON MANZANO/CN.
--- NOTE | 2018-12-11 07:20 | NUR ---
NURSE NOTES: Report received from outgoing RN, rounds made. Patient resting in bed, semi-fowlers position. Sleeping, arousable to name and touch. Calm. no distress noted on RA. LFA heplock intact. RLE brace on, skin warm, pedal pulse palpable. SPR mattress in place. Bed in lowest position, call light in reach, will continue to monitor.
[2018-12-11 08:00] VITALS: BP 145/73
[2018-12-11 08:09] LABS: INR 1.7 (0.9-1.1)
[2018-12-11 08:16] LABS: ANION GAP 10 mmol/L (5-15); BLOOD UREA NITROGEN 20 mg/dL (7-18); CALCIUM 9.5 MG/DL (8.5-10.1); CARBON DIOXIDE 24 MMOL/L (21-32); CHLORIDE 104 MMOL/L (98-107); CREATININE 0.7 MG/DL (0.55-1.30); POTASSIUM 3.9 MMOL/L (3.5-5.1); SODIUM 137 MMOL/L (136-145)
[2018-12-11 08:20] LABS: BASOPHILS % (AUTO) 0.7 % (0.0-2.0); EOSINOPHILS % (AUTO) 0.9 % (0.0-3.0); HEMOGLOBIN 13.5 G/DL (12.0-16.0); LYMPHOCYTES % (AUTO) 20.8 % (20.0-45.0); MEAN CORPUSCULAR VOLUME 94 FL (80-99); MONOCYTES % (AUTO) 7.9 % (1.0-10.0); NEUTROPHILS % (AUTO) 69.7 % (45.0-75.0); PLATELET COUNT 325 K/UL (150-450); RED BLOOD COUNT 4.37 M/UL (4.20-5.40); RED CELL DISTRIBUTION WIDTH 13.9 % (11.6-14.8); WHITE BLOOD COUNT 6.2 K/UL (4.8-10.8)
--- NOTE | 2018-12-11 09:15 | NUR ---
NURSE NOTES: Calf measurements done, right =24 cm, left = 22.5 cm
[2018-12-11] MEDS: Donepezil 10mg tab ORAL SCH (09:49)
[2018-12-11 12:00] VITALS: BP 138/78
--- NOTE | 2018-12-11 12:28 | Pulmonology Progress Note ---
Assessment/Plan Problems: (1) DVT (deep venous thrombosis) (2) Alzheimer's dementia Assessment/Plan awake, confused on Coumadin by pharmacy f/u H/h dc megace, probably the cause of dvt symptomatic treatment eating well dc planning Subjective ROS Limited/Unobtainable: No Interval Events: late note for 12/10 Constitutional: Reports: no symptoms HEENT: Repors: no symptoms Respiratory: Reports: no symptoms Cardiovascular: Reports: no symptoms Allergies: Coded Allergies: No Known Allergies (Unverified , 12/01/18) Objective Last 24 Hour Vital Signs Date Time Temp Pulse Resp B/P (MAP) Pulse Ox O2 Delivery O2 Flow Rate FiO2 12/11/18 08:00 99.2 70 17 145/73 (97) 97 12/11/18 04:00 97.5 73 18 152/84 (106) 97 12/11/18 00:00 97.7 69 16 127/84 (98) 93 12/10/18 21:00 Room Air 12/10/18 20:00 97.8 81 16 105/56 (72) 93 12/10/18 16:00 98.6 81 19 117/66 (83) 98 12/10/18 14:49 97.9 71 19 137/69 (91) 97 Intake and Output 12/10/18 12/11/18 19:00 07:00 Intake Total 750.32 ml 180 ml Balance 750.32 ml 180 ml Intake Oral 618 ml 180 ml IV Total 132.32 ml # Voids 2 4 Objective General Appearance: cachectic HEENT: normocephalic, atraumatic Respiratory/Chest: chest wall non-tender, lungs clear Breasts: no masses Cardiovascular: normal peripheral pulses Abdomen: normal bowel sounds, soft, non tender Extremities: no cyanosis, no clubbing Laboratory Tests 12/11/18 07:00: White Blood Count 6.2, Red Blood Count 4.37, Hemoglobin 13.5, Hematocrit 41.0, Mean Corpuscular Volume 94, Mean Corpuscular Hemoglobin 31.0, Mean Corpuscular Hemoglobin Concent 33.0, Red Cell Distribution Width 13.9, Platelet Count 325, Mean Platelet Volume 5.1L, Neutrophils (%) (Auto) 69.7, Lymphocytes (%) (Auto) 20.8, Monocytes (%) (Auto) 7.9, Eosinophils (%) (Auto) 0.9, Basophils (%) (Auto ) 0.7, Sodium Level 137, Potassium Level 3.9, Chloride Level 104, Carbon Dioxide Level 24, Anion Gap 10, Blood Urea Nitrogen 20H, Creatinine 0.7, Estimat Glomerular Filtration Rate , Glucose Level 88, Calcium Level 9.5 12/11/18 07:42: Prothrombin Time 17.4H, Prothromb Time International Ratio 1.7H Current Medications Medications (Trade) Dose Ordered Sig/Evita Route PRN Reason Start Time Stop Time Status Last Admin Dose Admin Acetaminophen (Tylenol) 650 mg Q4H PRN ORAL fever (temp>100.5F) 12/01/18 15:45 12/31/18 15:44 Al Hydroxide/Mg Hydroxide (Mylanta II) 30 ml Q6H PRN ORAL dyspepsia 12/01/18 15:45 12/31/18 15:44 Dextrose (Dextrose 50%) 25 ml Q30M PRN IV hypoglycemia 12/01/18 16:00 12/31/18 15:46 Dextrose (Dextrose 50%) 50 ml Q30M PRN IV hypoglycemia 12/01/18 16:00 12/31/18 15:59 Donepezil HCl (Aricept) 10 mg DAILY ORAL 12/02/18 09:00 01/01/19 08:59 12/11/18 09:49 Lorazepam (Ativan 2mg/ml 1ml) 0.5 mg Q4H PRN IV For Anxiety 12/07/18 15:15 12/12/18 15:44 12/08/18 17:18 Morphine Sulfate (Morphine Sulfate) 1 mg Q4H PRN IVP PAIN 4-10 12/07/18 15:45 12/12/18 15:44 Ondansetron HCl (Zofran) 4 mg Q6H PRN IVP Nausea & Vomiting 12/01/18 15:45 12/31/18 15:44 Polyethylene Glycol (Miralax) 17 gm HSPRN PRN ORAL Constipation 12/01/18 15:45 12/31/18 15:44 Warfarin Sodium (Coumadin per pharmacy) 1 ea DAILY PRN MISC Per rx protocol 12/03/18 12:15 01/02/19 12:14 Warfarin Sodium (Coumadin) 5 mg COUMADIN ORAL 12/11/18 17:00 12/11/18 17:01 Zolpidem Tartrate (Ambien) 5 mg HSPRN PRN ORAL Insomnia 12/07/18 21:00 12/12/18 20:59 Freddy Antunez MD Dec 11, 2018 12:28
--- NOTE | 2018-12-11 12:51 | Cardiac Electrophysiology PN ---
Assessment/Plan Assessment/Plan 1. HTN, Stable off meds 2. DVT on Coumadin per RX. INR 2.1 yesterday and 1.7 today. Now off heparin 3. Right proximal tibia fracture. Non surgical per Dr Gross 4. Placement pending CAPRICE RN Subjective Subjective Pleasantly confused. No change. Stable hemodynamically. Off heparin drip now. Placement pending Objective Last 24 Hour Vital Signs Date Time Temp Pulse Resp B/P (MAP) Pulse Ox O2 Delivery O2 Flow Rate FiO2 12/11/18 12:00 98.4 76 18 138/78 (98) 99 12/11/18 09:00 Room Air 12/11/18 08:00 99.2 70 17 145/73 (97) 97 12/11/18 04:00 97.5 73 18 152/84 (106) 97 12/11/18 00:00 97.7 69 16 127/84 (98) 93 12/10/18 21:00 Room Air 12/10/18 20:00 97.8 81 16 105/56 (72) 93 12/10/18 16:00 98.6 81 19 117/66 (83) 98 12/10/18 14:49 97.9 71 19 137/69 (91) 97 Intake and Output 12/10/18 12/11/18 19:00 07:00 Intake Total 750.32 ml 180 ml Balance 750.32 ml 180 ml Intake Oral 618 ml 180 ml IV Total 132.32 ml # Voids 2 4 Laboratory Tests Test 12/11/18 07:00 12/11/18 07:42 White Blood Count 6.2 K/UL (4.8-10.8) Red Blood Count 4.37 M/UL (4.20-5.40) Hemoglobin 13.5 G/DL (12.0-16.0) Hematocrit 41.0 % (37.0-47.0) Mean Corpuscular Volume 94 FL (80-99) Mean Corpuscular Hemoglobin 31.0 PG (27.0-31.0) Mean Corpuscular Hemoglobin Concent 33.0 G/DL (32.0-36.0) Red Cell Distribution Width 13.9 % (11.6-14.8) Platelet Count 325 K/UL (150-450) Mean Platelet Volume 5.1 FL (6.5-10.1) L Neutrophils (%) (Auto) 69.7 % (45.0-75.0) Lymphocytes (%) (Auto) 20.8 % (20.0-45.0) Monocytes (%) (Auto) 7.9 % (1.0-10.0) Eosinophils (%) (Auto) 0.9 % (0.0-3.0) Basophils (%) (Auto) 0.7 % (0.0-2.0) Sodium Level 137 MMOL/L (136-145) Potassium Level 3.9 MMOL/L (3.5-5.1) Chloride Level 104 MMOL/L (98-107) Carbon Dioxide Level 24 MMOL/L (21-32) Anion Gap 10 mmol/L (5-15) Blood Urea Nitrogen 20 mg/dL (7-18) H Creatinine 0.7 MG/DL (0.55-1.30) Estimat Glomerular Filtration Rate mL/min (>60) Glucose Level 88 MG/DL (74-106) Calcium Level 9.5 MG/DL (8.5-10.1) Prothrombin Time 17.4 SEC (9.30-11.50) H Prothromb Time International Ratio 1.7 (0.9-1.1) H Objective HEENT: No JVD Cardiovascular: Normal rate, regular rhythm Respiratory/Chest: Lungs clear, normal breath sounds Abdomen: normal bowel sounds, non tender, soft Extremities: no edema Timur Valencia MD Dec 11, 2018 12:51
--- NOTE | 2018-12-11 13:35 | General Progress Note ---
Assessment/Plan Problem List: (1) Altered mental status ICD Codes: R41.82 - Altered mental status, unspecified SNOMED: 237090048 (2) Alzheimer's dementia ICD Codes: G30.9 - Alzheimer's disease, unspecified; F02.80 - Dementia in other diseases classified elsewhere without behavioral disturbance SNOMED: 81161527 (3) DVT (deep venous thrombosis) ICD Codes: I82.409 - Acute embolism and thrombosis of unspecified deep veins of unspecified lower extremity SNOMED: 138450549 Status: unchanged Assessment/Plan psyc f/u heme f/u cbc bmp dc if clear Subjective Constitutional: Reports: weakness Allergies: Coded Allergies: No Known Allergies (Unverified , 12/01/18) All Systems: reviewed and negative except above Subjective sleepy calm Objective Last 24 Hour Vital Signs Date Time Temp Pulse Resp B/P (MAP) Pulse Ox O2 Delivery O2 Flow Rate FiO2 12/11/18 12:00 98.4 76 18 138/78 (98) 99 12/11/18 09:00 Room Air 12/11/18 08:00 99.2 70 17 145/73 (97) 97 12/11/18 04:00 97.5 73 18 152/84 (106) 97 12/11/18 00:00 97.7 69 16 127/84 (98) 93 12/10/18 21:00 Room Air 12/10/18 20:00 97.8 81 16 105/56 (72) 93 12/10/18 16:00 98.6 81 19 117/66 (83) 98 12/10/18 14:49 97.9 71 19 137/69 (91) 97 Intake and Output 12/10/18 12/11/18 19:00 07:00 Intake Total 750.32 ml 180 ml Balance 750.32 ml 180 ml Intake Oral 618 ml 180 ml IV Total 132.32 ml # Voids 2 4 Laboratory Tests 12/11/18 07:00: White Blood Count 6.2, Red Blood Count 4.37, Hemoglobin 13.5, Hematocrit 41.0, Mean Corpuscular Volume 94, Mean Corpuscular Hemoglobin 31.0, Mean Corpuscular Hemoglobin Concent 33.0, Red Cell Distribution Width 13.9, Platelet Count 325, Mean Platelet Volume 5.1L, Neutrophils (%) (Auto) 69.7, Lymphocytes (%) (Auto) 20.8, Monocytes (%) (Auto) 7.9, Eosinophils (%) (Auto) 0.9, Basophils (%) (Auto ) 0.7, Sodium Level 137, Potassium Level 3.9, Chloride Level 104, Carbon Dioxide Level 24, Anion Gap 10, Blood Urea Nitrogen 20H, Creatinine 0.7, Estimat Glomerular Filtration Rate , Glucose Level 88, Calcium Level 9.5 12/11/18 07:42: Prothrombin Time 17.4H, Prothromb Time International Ratio 1.7H Height (Feet): 5 Height (Inches): 4.00 Weight (Pounds): 108 General Appearance: lethargic EENT: normal ENT inspection Neck: normal alignment Cardiovascular: normal peripheral pulses, normal rate, regular rhythm Respiratory/Chest: chest wall non-tender, lungs clear, normal breath sounds Abdomen: normal bowel sounds, non tender, soft Extremities: normal inspection Edema: no edema noted Arm (L), no edema noted Arm (R), no edema noted Leg (L), no edema noted Leg (R), no edema noted Pedal (L), no edema noted Pedal (R), no edema noted Generalized Neurologic: motor weakness Skin: normal pigmentation, warm/dry Gabriel Jerry DO Dec 11, 2018 13:35
[2018-12-11 16:00] VITALS: BP 101/63
--- NOTE | 2018-12-11 16:37 | General Progress Note ---
Assessment/Plan Assessment/Plan # DVT (deep venous thrombosis) of the lower vein popliteal and femoral likely due to megace --> off megace --> off heparin gtt --> monitor for sob or development of pe --> okay to trasnsition to coumadin inr goal 2-3 --> dosing per pharmacy --> outpatient coumadin management ==> appreciate cards recs # Coagulopathy is due to coumadin use --> continue on coumadin inr goal 2-3 --> dose adjustment is per pharmacy # Anemia of chronic disease --> w/u as outpatient --> trend panel as needed # Alzheimer's dementia --> donepezil and neuro f/u The timing of this note does not necessarily reflect the time of the patient was seen. Greatly appreciate consultation! Subjective Constitutional: Denies: no symptoms, chills, diaphoresis, fever, malaise, weakness, other Cardiovascular: Denies: no symptoms, chest pain, edema, irregular heart rate, lightheadedness, palpitations, syncope, other Respiratory: Denies: no symptoms, cough, orthopnea, shortness of breath, SOB with excertion, SOB at rest, sputum, stridor, wheezing, other Gastrointestinal/Abdominal: Denies: no symptoms, abdomen distended, abdominal pain, black stools, tarry stools, blood in stool, constipated, diarrhea, difficulty swallowing, nausea, poor appetite, poor fluid intake, rectal bleeding , vomiting, other Genitourinary: Denies: no symptoms, burning, discharge, frequency, flank pain, hematuria, incontinence, pain, urgency, other Allergies: Coded Allergies: No Known Allergies (Unverified , 12/01/18) Subjective 12/03: awake, comfortable, no events reported. 12/04: no events, on coumadin, feeling better 12/06: seen by bedside, awake, comfortable, no events 12/07: no fevers or chills noted, on hep gtt 12/08: awake, comfortable, no events 12/09: Pt is awake, comfortable no acute distress reported. 12/10: no events, checking coags 12/11: no events, placement is pending, in semi-fowlers position Objective Last 24 Hour Vital Signs Date Time Temp Pulse Resp B/P (MAP) Pulse Ox O2 Delivery O2 Flow Rate FiO2 12/11/18 12:00 98.4 76 18 138/78 (98) 99 12/11/18 09:00 Room Air 12/11/18 08:00 99.2 70 17 145/73 (97) 97 12/11/18 04:00 97.5 73 18 152/84 (106) 97 12/11/18 00:00 97.7 69 16 127/84 (98) 93 12/10/18 21:00 Room Air 12/10/18 20:00 97.8 81 16 105/56 (72) 93 Intake and Output 12/10/18 12/11/18 18:59 06:59 Intake Total 766.86 ml 180 ml Balance 766.86 ml 180 ml Intake Oral 618 ml 180 ml IV Total 148.86 ml # Voids 2 4 Laboratory Tests 12/11/18 07:00: White Blood Count 6.2, Red Blood Count 4.37, Hemoglobin 13.5, Hematocrit 41.0, Mean Corpuscular Volume 94, Mean Corpuscular Hemoglobin 31.0, Mean Corpuscular Hemoglobin Concent 33.0, Red Cell Distribution Width 13.9, Platelet Count 325, Mean Platelet Volume 5.1L, Neutrophils (%) (Auto) 69.7, Lymphocytes (%) (Auto) 20.8, Monocytes (%) (Auto) 7.9, Eosinophils (%) (Auto) 0.9, Basophils (%) (Auto ) 0.7, Sodium Level 137, Potassium Level 3.9, Chloride Level 104, Carbon Dioxide Level 24, Anion Gap 10, Blood Urea Nitrogen 20H, Creatinine 0.7, Estimat Glomerular Filtration Rate , Glucose Level 88, Calcium Level 9.5 12/11/18 07:42: Prothrombin Time 17.4H, Prothromb Time International Ratio 1.7H Height (Feet): 5 Height (Inches): 4.00 Weight (Pounds): 108 Objective Physical Exam General Appearance: WD/WN, no apparent distress Lines, tubes and drains: peripheral, central line HEENT: normocephalic, atraumatic Neck: non-tender, normal alignment Respiratory/Chest: chest wall non-tender, lungs clear, normal breath sounds Cardiovascular/Chest: normal rate, no JVD Abdomen: non tender, soft Genitourinary/Rectal: normal genital exam Extremities: nt Romain Max MD Dec 11, 2018 16:37
--- NOTE | 2018-12-11 16:41 | NUR ---
DISCHARGE PLANNED PATIENT WILL RETURN TO [facility] [address] T: [phone] FOR NURSE TO NURSE REPORT [facility] HAS BEEN ARRANG[facility] FOR [address] [employer]
[2018-12-11] MEDS ORDERED: Warfarin Sodium 5mg ORAL SCH (17:00)
--- NOTE | 2018-12-11 18:30 | NUR ---
NURSE NOTES: Report given to Avinash YA at [facility], reported that patient was given Coumadin 5 mg PO today. IV heplock discontinued, no active bleeding. Awaiting [facility] bean picker. Will continue to monitor.
--- NOTE | 2018-12-11 19:40 | NUR ---
HAND-OFF: Report given to Frankie YA.
--- NOTE | 2018-12-11 19:45 | NUR ---
NURSE NOTES: [facility] arrived to pick up attendant patient, report given. Spoke with Nuno Hollingsworth, aware patient is on the way. Patient transferred with belongings, in stable condition.
--- NOTE | 2018-12-13 15:58 | Discharge Summary ---
Discharge Summary Discharge Summary _ DATE OF ADMISSION: [] 12/01/2018 DATE OF DISCHARGE: 12/11/2018 DISCHARGED BY: dR Nathan REASON FOR ADMISSION: 88 years old female with past medical history of hyperlipidemia, Alzheimer dementia, anxiety, presented with worsening right lower extremity pain and swelling. Venous duplex, done as outpatient, revealed possible DVT. Patient was referred to emergency room for further evaluation. On arrival patient denied chest pain and shortness of breath. However, patient was a poor historian and was unable to provide much of the information. Vital signs were stable. Pulse oximetry was stable on room air. Laboratory workup revealed no leukocytosis, hemoglobin 12.6, hematocrit 37.6. Platelet count 157. Stable coagulation profile. Stable chemistry and renal parameters. Glucose 134. 9 Stable LFT. Albumin 2.9. Venous duplex of right lower extremity revealed acute DVT of right femoral and popliteal veins. Patient was admitted for further management CONSULTANTS: sheriff's sergeant Dr. Miller pulmonary Dr. Antunez dietary aid/oncologist Dr. Max orthopedic surgeon Dr. Gross HOSPITAL COURSE: Patient admitted and started on intravenous heparin and Coumadin to bridge to therapeutic level. Supplemental oxygen provided as needed to keep pulse oximetry above 92%. Pain management was advanced as needed. Patient was prior on Megace. Megace stopped as a probable cause of acute DVT. Hemoglobin and hematocrit were closely monitored with goal to keep hemoglobin above 7. Hemoglobin and hematocrit remained at baseline and prior to discharge hemoglobin 13.5 and hematocrit 41. When INR reached therapeutic level, heparin stopped and patient was on Coumadin as per pharmacy dosing. Patient was discharged on Coumadin to be dosed to keep INR in therapeutic range. Patient undergone x-ray of the right leg, which revealed nondisplaced tibial and fibular fracture. X-ray of the right knee reveal degenerative changes,but no acute bony trauma. Per orthopedic surgeon , continue with conservative regimen, given the look of fracture and patient's cognitive impairment. Patient would not require back brace in light that she had a DVT of the right lower extremity. Surgeon recommended conservative management with bedrest until the fracture healed with adequate pain management. Echocardiogram revealed preserved ejection fraction of 60% with mild left ventricular hypertrophy. No evidence of pericardial effusion. No evidence of wall motion abnormality. Right ventricular systolic pressure of 21. Nurse Head closely followed. Blood pressure was closely monitored and remained stable without any antihypertensive medication. Supportive care provided. Bowel regimen instituted. Patient clinically stabilized. Placement was found at [facility] as intermediate. Patient was stable for discharge. FINAL DIAGNOSES: Acute DVT right lower extremity popliteal and femoral veins, likely secondary to Megace Right proximal tibia fracture Alzheimer dementia Anemia of chronic disease Hypertension DISCHARGE MEDICATIONS: See Medication Reconciliation list. DISCHARGE INSTRUCTIONS: Patient was discharged to [facility] as intermediate. Follow up with medical doctor at the facility. I have been assigned to dictate discharge summary for this account. I was not involved in the patient's management. Tiffany Foreman NP Dec 13, 2018 15:58
== END 2018-12-11 20:00 | DRG 197 ==
LOC: EDBD 13:17 → EMR 13:55 → 3E 14:55 → EDBEDREQ 15:29
DX: I82.431 Acute embolism and thrombosis of right popliteal vein (principal); E46 Unspecified protein-calorie malnutrition; I82.411 Acute embolism and thrombosis of right femoral vein; S82.101A Unspecified fracture of upper end of right tibia, initial encounter for closed fracture; E78.5 Hyperlipidemia, unspecified; D63.8 Anemia in other chronic diseases classified elsewhere; G30.9 Alzheimer's disease, unspecified; F02.80 Dementia in other diseases classified elsewhere, unspecified severity, without behavioral disturbance, psychotic disturbance, mood disturbance, and anxiety; T38.5X5A Adverse effect of other estrogens and progestogens, initial encounter; X58.XXXA Exposure to other specified factors, initial encounter; I10 Essential (primary) hypertension; F41.9 Anxiety disorder, unspecified; Z68.1 Body mass index [BMI] 19.9 or less, adult
CPT/HCPCS: 36415; 71045; 80048; 80053; 80061; 85025; 85610; 85730; 87081; 93005; 93306; 93971; 99285